=== PATIENT | male | born 1980 | race Caucasian/White ===

== ENCOUNTER 2022-11-08 14:43 | Inpatient (IN) ==
--- NOTE | 2022-11-08 15:37 | XRay Report ---
XR chest 1V not portable CLINICAL HISTORY: Dysrhythmia TECHNIQUE: Single frontal radiograph of the chest was obtained. Comparison: Comparison is made to chest radiograph 08/29/2019 FINDINGS: No lines and tubes are seen. The cardiomediastinal silhouette is normal. The lungs are clear. No evid ence of pleural effusion or pneumothorax. IMPRESSION: No acute chest disease. ACT 112: Negative or not required by law. Electronically signed by: Binu Helton M.D. 11/08/2022 3:36 PM
[2022-11-08 16:22] LABS: Basophils # (auto) 0.02 K/uL (0.00-0.20); Basophils % (auto) 0.2 %; Eosinophils # (auto) 0.04 K/uL (0.00-0.50); Eosinophils % (auto) 0.4 %; Hematocrit (blood only) 45.7 % (42.0-52.0); Hemoglobin 16.7 g/dl (14.0-18.0); Immature Granulocytes # (auto) 0.02 K/uL (0.01-0.20); Immature Granulocytes % (auto) 0.2 %; Lymphocytes # (auto) 3.17 K/uL (1.20-3.40); Lymphocytes % (auto) 35.2 %; Mean Corpuscular Hemoglobin 29.6 pg (25.0-34.0); Mean Corpuscular Hgb Conc 36.5 g/dL (32.0-36.0); Mean Corpuscular Volume 80.9 fL (80.0-100.0); Mean Platelet Volume 10.2 fL (9.4-12.4); Monocytes # (auto) 0.62 K/uL (0.11-0.59); Monocytes % (auto) 6.9 %; Neutrophils # (auto) 5.13 K/uL (1.40-6.50); Neutrophils % (auto) 57.1 %; Platelet Count 258 K/uL (130-400); RDW Coefficient of Variation 12.3 % (11.5-14.5); RDW Standard Deviation 35.6 fL (36.4-46.3); Red Blood Count 5.65 M/uL (4.70-6.10)
[2022-11-08] MEDS ORDERED: SODIUM CHLORIDE 0.9% 1,000 ML IV ONE (16:43)
[2022-11-08 16:44] LABS: Alanine Aminotransferase 30 U/L (7-52); Albumin Globulin Ratio 1.2 (0.9-2); Albumin Level 4.1 gm/dl (3.4-5.0); Alkaline Phosphatase 77 U/L (34-104); Anion Gap 9 (3-11); Aspartate Aminotransferase 30 U/L (13-39); BUN Creatinine Ratio 21.8 (10-20); Bilirubin,Total 0.8 mg/dl (0.2-1.0); Blood Urea Nitrogen 17 mg/dl (6-23); Calcium 9.3 mg/dl (8.6-10.3); Carbon Dioxide 24 mmol/L (21-32); Chloride 101 mmol/L (98-107); Est GFR (Non-African American) 111.3 ml/min; Globulin 3.4 gm/dl (2.5-4.0); Glucose 299 mg/dl (70-99(Fasting)); Magnesium 1.7 mg/dl (1.7-2.4); Potassium 4.1 mmol/L (3.5-5.1); Sodium 134 mmol/L (136-145); Total Protein 7.5 gm/dl (6.0-8.3)
--- NOTE | 2022-11-08 16:45 | Emergency Department Note ---
Impression & Plan Elevated troponin ADMIT ED Provider Note HPI: The patient is a 42-year-old male with history of obesity, diabetes, presents emergency department with chief complaint of chest discomfort last night and an episode of self-induced vomiting. Patient states he developed an episode of severe epigastric discomfort that was slightly off to the left side. Patient states this lasted about an hour and a half late last night, he was unable to fall asleep. Patient states that he did eat a large meal of fast food last night. On arrival here to the ED, the patient states he has been having some palpitations throughout the day but his chest pain is resolved. Patient denies any current chest pain. Patient is hemodynamically stable otherwise on arrival. ROS: - Per HPI Differential Diagnosis: Acute coronary syndrome, pulmonary embolism, aortic dissection, tension pneumothorax, acute cholecystitis, acute gastritis, amongst other potential pathologies. *Outpatient medications and allergy history reviewed. *Pertinent external medical records reviewed. PE: General: Alert, morbidly obese HEENT: Normocephalic, trachea midline Eyes: Extraocular eye movement is intact, no scleral erythema Pulmonary: Clear to auscultation bilaterally, no wheezing Cardio: Regular rate and rhythm GI: Abdomen is soft to palpation : No suprapubic tenderness MSK: No evidence of trauma or malformation of the extremities, no edema Skin: No evidence of rash Neuro: Alert, no focal deficits Psychiatric: Cooperative media monitor: (As interpreted by myself): - An order was placed for continuous cardiac monitoring - Patient was noted to be in sinus rhythm with a rate of 95 EKG: (As interpreted by myself): Rate: 98 Rhythm: Sinus rhythm Intervals: Within normal limits ST changes: No ST elevation Time: 1555 Interventions provided in ED: -IV fluid bolus, aspirin, heparin drip Medical Decision Making: Shortly after the patient arrived IV was established and lab work ordered, patient was maintained on traffic monitor specialist. Lab work shows no leukocytosis, hemoglobin is normal, platelet count is normal, CMP does not show any critical findings, troponin is noted to be elevated at 2055, EKG shows what appear to be some new Q waves in lead V1 and V2 without any acute ischemic changes noted. Chest x-ray does not show any acute pathology. Patient is currently chest pain- free. In regards to the palpitations the patient has been experiencing, EKG does note some premature atrial contractions, otherwise no evidence of atrial fibrillation or malignant arrhythmia. I discussed the above findings with on-call cardiology, Dr. Brewer, he is in ag reement at this time that the patient likely suffered an UT last night. Recommended initiating heparin drip, aspirin, and admission to the hospitalist service for further management and cardiology consultation. I discussed all the above findings with the patient and his significant other at the bedside, they are in agreement for admission, patient remains pain-free at this time. Case was discussed with the on-call hospitalist for [facility] [place], Dr. Gay, and the patient was placed for admission in stable condition. Consultants: -Cardiology, Dr. Brewer -Hospitalist, Dr. Gay Disposition discussion held by myself with: Patient and significant other Critical care time: 37 minutes -Management of patient with NSTEMI requiring initiation of heparin drip, interpretation of EKG and diagnostic studies, discussion with multiple other physicians including on-call cardiology in regards to patient care, discussion with hospitalist service and arrangement of admission. Diagnosis: 1. NSTEMI, acute 2. Sensation of palpitations, acute Disposition: ADMIT Dominick Carpenter DO Emergency Medicine Past Med/Surg History Medical History (Updated 11/08/22 @ 18:29 by Dominick Carpenter DO) No acute medical problems Surgical History No pertinent past surgical history Social History Smoking Status: Never smoker Feels Safe at Home: Yes Allergies Allergies Allergy/AdvReac Type Severity Reaction Status Date / Time bacitracin Allergy Mild Rash Unverified 11/08/22 17:59 calamine Allergy Mild Rash Unverified 11/08/22 17:59 zinc oxide Allergy Mild Rash Unverified 11/08/22 17:59 onion AdvReac Intermediate Gastrointestinal Unverified 11/08/22 17:59 Upset Home Meds Home Medications Medication Instructions Recorded Confirmed acetaminophen 325 mg tablet 650 mg PO QID PRN Pain 11/26/20 11/08/22 (Tylenol) aspirin 325 mg tablet 650 mg PO DIRECTED PRN Pain 11/26/20 11/08/22 ibuprofen 200 mg tablet 400 mg PO Q6H PRN Pain 11/26/20 11/08/22 naproxen sodium 220 mg tablet 440 mg PO BID PRN Pain 11/26/20 11/08/22 Results & Data (ED) Vital Signs Vital Signs - 24 hr 11/08/22 14:59 11/08/22 16:24 11/08/22 16:25 Temperature 36.7 C Temperature Source Skin Pulse Rate 95 H 90 100 H Pulse Rate from SpO2 Sensor 87 Respiratory Rate 20 24 Blood Pressure 132/77 134/100 Blood Pressure Mean 95 111 Pulse Oximetry 96 97 Oxygen Delivery Method Room Air Sepsis Recent Fever Within 48 Hours No Sepsis New/Unexplained Change in Mental Status No Sepsis Action Taken by Nursing No Action Required Laboratory Data 11/08/22 16:00 11/08/22 16:00 Lab Results 11/08/22 11/08/22 11/08/22 Range/Units 16:00 16:00 16:00 WBC 9.00 (4.8-10.8) K/ul RBC 5.65 (4.70-6.10) M/uL Hgb 16.7 (14.0-18.0) g/dl Hct 45.7 (42.0-52.0) % MCV 80.9 (80.0-100.0) fL MCH 29.6 (25.0-34.0) pg MCHC 36.5 H (32.0-36.0) g/dL RDW Std Deviation 35.6 L (36.4-46.3) fL RDW Coeff of Sujey 12.3 (11.5-14.5) % Plt Count 258 (130-400) K/uL MPV 10.2 (9.4-12.4) fL Immature Gran % (Auto) 0.2 % Neut % (Auto) 57.1 % Lymph % (Auto) 35.2 % Plumas % (Auto) 6.9 % Eos % (Auto) 0.4 % Baso % (Auto) 0.2 % Neut # (Auto) 5.13 (1.40-6.50) K/uL Lymph # (Auto) 3.17 (1.20-3.40) K/uL Plumas # (Auto) 0.62 H (0.11-0.59) K/uL Eos # (Auto) 0.04 (0.00-0.50) K/uL Baso # (Auto) 0.02 (0.00-0.20) K/uL Immature Gran # (Auto) 0.02 (0.01-0.20) K/uL Sodium 134 L (136-145) mmol/L Potassium 4.1 (3.5-5.1) mmol/L Chloride 101 (98-107) mmol/L Carbon Dioxide 24 (21-32) mmol/L Anion Gap 9 (3-11) BUN 17 (6-23) mg/dl Creatinine 0.78 (0.6-1.4) mg/dl Est Cr Clr Drug Dosing Not Reportable Est GFR ( Amer) 129.0 ml/min Est GFR (Non-Af Amer) 111.3 ml/min BUN/Creatinine Ratio 21.8 H (10-20) Glucose 299 H (70-99(Fasting)) mg/dl Calcium 9.3 (8.6-10.3) mg/dl Magnesium 1.7 (1.7-2.4) mg/dl Total Bilirubin 0.8 (0.2-1.0) mg/dl AST 30 (13-39) U/L ALT 30 (7-52) U/L Alkaline Phosphatase 77 (34-104) U/L Troponin I High Sens 2056.8 H* (0-20) pg/ml Total Protein 7.5 (6.0-8.3) gm/dl Albumin 4.1 (3.4-5.0) gm/dl Globulin 3.4 (2.5-4.0) gm/dl Albumin/Globulin Ratio 1.2 (0.9-2) TSH 1.398 (0.300-4.500) uIu/ml Administered Medications Heparin Sodium/Dextrose (Heparin Sodium/Dextrose) 25,000 units in 500 mls @ 44 mls/hr IV .[id number] [facility]; Protocol Stop: 12/08/22 17:29 Last Admin: 11/08/22 17:56 Dose: 2,200 units/hr, 44 mls/hr Documented By: STELLA Co-signed By: [facility] Discontinued Medications Aspirin (Aspirin Chew 324 Mg) 324 mg PO NOW STA Stop: 11/08/22 16:56 Last Admin: 11/08/22 17:00 Dose: 324 mg Documented By: STELLA Heparin Sodium (Porcine) (Heparin Sod (Porcine) 1000 Unit/Ml) 10,000 units IV NOW ONE Stop: 11/08/22 17:46 Last Admin: 11/08/22 17:56 Dose: 10,000 units Documented By: STELLA Co-signed By: AICHA Sodium Chloride (Nss 1000ml) 1,000 mls @ 999 mls/hr IV .Q1H1M ONE Stop: 11/08/22 17:43 Last Admin: 11/08/22 17:01 Dose: 999 mls/hr Documented By: STELLA Imaging Data Radiologist's Impression: Chest X-Ray 11/08/22 15:07 XR chest 1V not portable CLINICAL HISTORY: Dysrhythmia TECHNIQUE: Single frontal radiograph of the chest was obtained. Comparison: Comparison is made to chest radiograph 08/29/2019 FINDINGS: No lines and tubes are seen. The cardiomediastinal silhouette is normal. The lungs are clear. No evidence of pleural effusion or pneumothorax. IMPRESSION: No acute chest disease. ACT 112: Negative or not required by law. Electronically signed by: Binu Helton M.D. 11/08/2022 3:36 PM Discharge Plan Visit Data Chief Complaint: Arrhythmia/Palpitations Stated Complaint: HIGH BLOOD PRESSURE, HEART SKIPPING, CHEST PAIN ED Provider: Dominick Crapenter Discharge Problem: Elevated troponin Forms Stand Alone Forms: [employer] [facility] [employer] Prescriptions Prescriptions: No Action acetaminophen [Tylenol] 325 mg Tablet 650 mg PO QID PRN (Reason: Pain) aspirin 325 mg Tablet 650 mg PO DIRECTED PRN (Reason: Pain) naproxen sodium 220 mg Tablet 440 mg PO BID PRN (Reason: Pain) ibuprofen 200 mg Tablet 400 mg PO Q6H PRN (Reason: Pain) Referrals Referrals: PCP,NO [Primary Care Provider] -
[2022-11-08 16:52] LABS: Troponin I High Sensitivity 2056.8 pg/ml (0-20)
[2022-11-08] MEDS ORDERED: ASPIRIN CHEW 324 MG PO STA (16:55)
--- NOTE | 2022-11-08 16:57 | Electrocardiogram Report ---
Test Reason : Blood Pressure : / mmHG Vent. Rate : 098 BPM Atrial Rate : 098 BPM P-R Int : 162 ms QRS Dur : 090 ms QT Int : 340 ms P-R-T Axes : 007 -20 044 degrees QTc Int : 434 ms Sinus rhythm with Premature atrial complexes Septal infarct , age undetermined Abnormal ECG When compared with ECG of 29-AUG-2019 00:46, Premature atrial complexes are now Present Septal infarct is now Present Nonspecific T wave abnormality now evident in Lateral leads Confirmed by Ruben Lazaro ([id number]) on 11/08/2022 4:57:31 PM Referred By: Confirmed By:Ruben Lazaro
[2022-11-08] MEDS ORDERED: Heparin IV Adult Wt-Based Standard WITH Bolus Protocol IV STA (17:14)
[2022-11-08] MEDS ORDERED: HEPARIN SOD (PORCINE) 1000 UNIT/ML IV ONE ×2 (17:30→17:45)
[2022-11-08] MEDS ORDERED: Heparin IV Adult Wt-Based Standard WITH Bolus Protocol IV SCH (17:30)
[2022-11-08] MEDS ORDERED: MoRPHine SULFATE 2 MG/ML CARP IV PRN (17:46)
[2022-11-08] MEDS ORDERED: ONDANSETRON INJ 2 MG/ML 2 ML VIAL IV PRN (17:46)
[2022-11-08] MEDS ORDERED: NITROGLYCERIN SL 0.4 MG/TAB TAB SL PRN (17:46)
[2022-11-08] MEDS: HEPARIN SODIUM/DEXTROSE 25,000 UNITS/500 ML BAG IV SCH (17:56)
--- NOTE | 2022-11-08 18:53 | History & Physical Report ---
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 Chest pain/Elevated Troponins States that he was at work, nonexertional activity, when he started having severe chest pain that lasted for about an hour. Since then has been having a persistent "heavy heartbeat" and dull ache in the area. EKG with sinus rhythm and PACs, hs-troponins elevated >2000. Echo pending, Trend trops q2h CTA chest Continue heparin drip started in the ED, started on metoprolol tartrate 25mg PO BID Scheduled nitropaste q6h Discussed with both cardiology and interventional cardiology- advised to keep NPO currently, will need cath in near future. Sooner if he destabilizes. 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 States that he was at work, nonexertional activity, when he started having severe chest pain that lasted for about an hour. Also self induced vomitting to see if that would help. Since then has been having a persistent "heavy heartbeat" and dull ache in the area. Girlfriend at the bedside. They state that he recently started a new job and did not have insurance. So he has not been on any diabetic medicines since being diagnosed in 2017. States that he has tried metformin at one point but had GI side effects and stopped. States he was trying to manage it with diet and exercise. Nonsmoker. Fam Hx of strokes and GA in grandfather, mother has Hx of "arrhythmias". Allergies Allergy/AdvReac Type Severity Reaction Status Date / Time bacitracin Allergy Mild Rash Unverified 11/08/22 17:59 calamine Allergy Mild Rash Unverified 11/08/22 17:59 zinc oxide Allergy Mild Rash Unverified 11/08/22 17:59 onion AdvReac Intermediate Gastrointestinal Unverified 11/08/22 17:59 Upset Home Medications Medication Instructions Recorded Confirmed Type acetaminophen 325 mg tablet 650 mg PO QID PRN Pain 11/26/20 11/08/22 History (Tylenol) aspirin 325 mg tablet 650 mg PO DIRECTED PRN Pain 11/26/20 11/08/22 History ibuprofen 200 mg tablet 400 mg PO Q6H PRN Pain 11/26/20 11/08/22 History naproxen sodium 220 mg tablet 440 mg PO BID PRN Pain 11/26/20 11/08/22 History Past Med/Surg History Medical History (Updated 11/10/22 @ 00:00 by Orin Gay MD) No acute medical problems Surgical History No pertinent past surgical history Social History Smoking Status: Never smoker Hx Alcohol Use: No Hx Substance Use: No Preferred Language: Slovenian Communication Ability: Effective Gaggerman Required: No Beliefs That Will Affect Care: None Current Living Situation: Spouse Other Information That Helps Us Care for You: No Feels Safe at Home: Yes Safety Concerns: Feels Safe At This Time Assistive Devices: Cane Review of Systems Review of Systems: All systems reviewed & are unremarkable except as noted in Subjective Physical Exam Physical Exam: General: Alert, oriented. No acute distress Skin: No noted rashes or bruises Neuro: No gross deficits HEENT: NC/AT CV: RRR, Normal s1, s2. Resp: Breath sounds clear bilaterally, no increased effort of breathing. Abdomen: Soft, nontender, nondistended. No guarding. No organomegaly appreciated. Results & Data Results & Data Vital Signs (Past 12 Hours) Vital Signs Temp Pulse Resp BP Pulse Ox O2 Del Method 11/08/22 16:25 100 H 11/08/22 16:24 90 24 134/100 97 Room Air 11/08/22 14:59 36.7 C 95 H 20 132/77 96
--- NOTE | 2022-11-08 19:31 | CT Scan Report ---
CT chest diagnostic wo con CLINICAL HISTORY: Chest Pain, Eval for PE TECHNIQUE: Multidetector row helical CT of the chest was performed. Coronal and sagittal reformations were obtained. Automated dose lowering techniques and/or adjustment according to patient size were u tilized for this exam. CT DOSE: 998.15 mGy.cm Comparison: Comparison is made to chest radiograph 11/08/2022 FINDINGS: Lungs and pleura: Normal. Heart and pericardium: Heart size is normal. No pericardial effusion. Vessels: Evaluation for pulmonary embolus is limited by noncontrast technique. Mild atherosclerotic d isease is seen. Mediastinum and nataliia: Subcentimeter lymph nodes are seen. Chest wall and lower neck: Unremarkable. Abdomen: Unremarkable. Bones: Degenerative changes in the thoracic spine. IMPRESSION: Evaluation for pulmonary embolus is limited by noncontrast technique. Otherwise no acute abnormalitie s are seen. ACT 112: Negative or not required by law. Electronically signed by: Binu Helton M.D. 11/08/2022 7:30 PM
[2022-11-08] MEDS: METOPROLOL TARTRATE 25 MG TAB PO SCH (20:39)
[2022-11-08] MEDS: NITROGLYCERIN 2% OINTMENT 30GM TUBE EXT SCH (21:00)
[2022-11-08 22:52] LABS: Estimated Average Glucose 301 mg/dl; Hemoglobin A1C 12.1 % (4.5-5.6)
[2022-11-08 23:44] LABS: Partial Thromboplastin Ratio 1.8
[2022-11-08 23:47] LABS: Partial Thromboplastin Time 52.1 Seconds (21.0-31.0)
[2022-11-09] MEDS: NITROGLYCERIN 2% OINTMENT 30GM TUBE EXT SCH ×5 (01:30→23:48)
[2022-11-09] MEDS: oxyCODONE HCL IR 5 MG TAB (IMMEDIATE RELEASE) PO PRN ×3 (02:15→20:34)
[2022-11-09] MEDS ORDERED: GLUCAGON FOR INJ 1 MG VIAL SQ PRN (04:02)
[2022-11-09] MEDS ORDERED: DEXTROSE 50% 50 ML SYRINGE IV PRN (04:02)
[2022-11-09] MEDS ORDERED: CARBOHYDRATES FOR HYPOGLYCEMIA PO PRN (04:02)
[2022-11-09] MEDS ORDERED: GLUCOSE 40% GEL 15 GM TUBE PO PRN (04:02)
[2022-11-09] MEDS ORDERED: GLUCOSE 10 TAB/TUBE PO PRN (04:02)
[2022-11-09] MEDS ORDERED: SODIUM CHLORIDE 0.9% 1,000 ML IV ONE (04:09)
[2022-11-09] MEDS: INSULIN ASPART PER UNIT CHARGE SC SCH ×4 (04:29→21:34)
[2022-11-09 04:37] LABS: Basophils # (auto) 0.03 K/uL (0.00-0.20); Basophils % (auto) 0.3 %; Eosinophils # (auto) 0.04 K/uL (0.00-0.50); Eosinophils % (auto) 0.4 %; Hemoglobin 15.2 g/dl (14.0-18.0); Immature Granulocytes # (auto) 0.04 K/uL (0.01-0.20); Immature Granulocytes % (auto) 0.4 %; Lymphocytes # (auto) 4.79 K/uL (1.20-3.40); Lymphocytes % (auto) 45.9 %; Mean Corpuscular Hemoglobin 29.4 pg (25.0-34.0); Mean Corpuscular Hgb Conc 36.2 g/dL (32.0-36.0); Mean Corpuscular Volume 81.2 fL (80.0-100.0); Mean Platelet Volume 10.2 fL (9.4-12.4); Monocytes # (auto) 0.73 K/uL (0.11-0.59); Neutrophils # (auto) 4.81 K/uL (1.40-6.50); Platelet Count 230 K/uL (130-400); RDW Coefficient of Variation 12.3 % (11.5-14.5); RDW Standard Deviation 35.9 fL (36.4-46.3); Red Blood Count 5.17 M/uL (4.70-6.10); White Blood Count 10.44 K/ul (4.8-10.8)
[2022-11-09] MEDS: LANTUS PER UNIT CHARGE SQ SCH ×2 (04:38→21:37)
[2022-11-09 04:49] LABS: BUN Creatinine Ratio 20.6 (10-20); Calcium 8.5 mg/dl (8.6-10.3); Chol HDL Ratio 6.7 (0-5); Creatinine Clr Calc Pharmacy 266.8 ml/min; Est GFR (African American) 140.9 ml/min; Est GFR (Non-African American) 121.5 ml/min; Potassium 3.7 mmol/L (3.5-5.1)
[2022-11-09] MEDS: MoRPHine SULFATE 4 MG/ML 1 ML CARP\\VIAL IV PRN ×4 (04:52→21:48)
[2022-11-09 05:20] LABS: Partial Thromboplastin Ratio 1.5
[2022-11-09 05:24] LABS: Partial Thromboplastin Time 43.6 Seconds (21.0-31.0)
[2022-11-09] MEDS: HEPARIN SODIUM/DEXTROSE 25,000 UNITS/500 ML BAG IV SCH ×2 (05:42→17:09)
--- NOTE | 2022-11-09 07:15 | Electrocardiogram Report ---
Test Reason : Blood Pressure : / mmHG Vent. Rate : 087 BPM Atrial Rate : 087 BPM P-R Int : 166 ms QRS Dur : 092 ms QT Int : 386 ms P-R-T Axes : 017 -13 026 degrees QTc Int : 464 ms Sinus rhythm with Premature atrial complexes Otherwise normal ECG When compared with ECG of 08-NOV-2022 15:55, No significant change was found Confirmed by Jose Guadalupe Morrow ([id number]) on 11/09/2022 7:14:55 AM Referred By: REFERRED SELF Confirmed By:Zak Morrow
--- NOTE | 2022-11-09 07:16 | Electrocardiogram Report ---
Test Reason : Blood Pressure : / mmHG Vent. Rate : 087 BPM Atrial Rate : 087 BPM P-R Int : 164 ms QRS Dur : 094 ms QT Int : 378 ms P-R-T Axes : 038 -07 063 degrees QTc Int : 454 ms Normal sinus rhythm Nonspecific T wave abnormality Abnormal ECG When compared with ECG of 08-NOV-2022 20:51, (unconfirmed) Premature atrial complexes are no longer Present Nonspecific T wave abnormality now evident in Lateral leads Confirmed by Jose Guadalupe Morrow ([id number]) on 11/09/2022 7:16:05 AM Referred By: REFERRED SELF Confirmed By:Zak Morrow
[2022-11-09] MEDS: ATORVASTATIN 40 MG TAB PO SCH (08:49)
[2022-11-09] MEDS: ASPIRIN 81 MG ECTAB PO SCH (08:49)
[2022-11-09] MEDS: METOPROLOL TARTRATE 25 MG TAB PO SCH ×2 (08:49→21:31)
[2022-11-09 12:23] LABS: D Dimer < 190 ug/L FEU (0-500)
--- NOTE | 2022-11-09 13:16 | Cardiology Consultation ---
Date of Consultation November 09, 2022 Assessment & Plan (1) Elevated troponin: (2) Substernal precordial chest pain: (3) Morbid obesity: (4) Hyperlipidemia: Plan Patient is a 42-year-old male with multiple cardiovascular risk factors who is developed severe substernal/epigastric pain approximately 12 hours prior to ER presentation. Symptoms lasted upwards of 90 minutes with only low-level chest pressure symptoms afterwards consistent with sensed atrial and ventricular ectopy. No acute dynamic ST segment changes on EKG but troponin elevated Echocardiogram demonstrates mild diffuse LV dysfunction without segmental abnormality Discussed findings in detail with patient. Would recommend diagnostic coronary angiography for further risk factor stratification We will continue IV heparin Continue oral beta-arpita with metoprolol We will reduce topical nitrates to 1 inch every 6 given headache Continue aspirin and statin Tentative plans for procedure Friday a.m. unless patient becomes unstable, dynamic ST segment changes develop History of Present Illness Reason for Consultation: Chest pain, elevated troponin Requesting Physician: Dr. Gay Attending Physician: Orin Gay MD History of Present Illness Patient is a 42-year-old male without prior documented cardiac disease with multiple cardiovascular risk factors including uncontrolled diabetes mellitus, marked hyperlipidemia, familial history of cardiac disease. Medical issues include morbid obesity Patient notes evening prior to admission having eating a spicy chicken sandwich, large meal. Proximately 2 AM the next morning while awake patient developed severe epigastric pain and discomfort. Lasting up to 90 minutes in duration. He did take a full aspirin and treatment, induced vomiting with improvement in some symptoms. Uncomfortable throughout the night but slept In a.m. was aware of intermittent episodes of heart pounding hard and ultimately sought ER evaluation approximately 12 hours after event. Initial EKG without ST segment abnormalities to suggest acute injury Troponins elevated He denies prior history of cardiac disease rheumatic fever scarlet fever TIA or stroke. Has not been taking any diabetic medications due to concerns regarding medications. Notes weight has been stable but still elevated at greater than 400 pounds. No bleeding difficulties. No recent fevers chills or infections. Has made car travel trips though no worsening leg edema or tenderness Denies sleep disturbances or sleep apnea No sense of prior tachypalpitations though as described above occasional fluttering sensation Chronic depression has been an issue with patient but he feels overall trending towards better given recent lifestyle interventions No further chest pressure pain this morning episodes of heart pounding heart have improved with heart rate control Headache secondary to nitrates Does note mild pleuritic discomfort left shoulder Allergies Allergy/AdvReac Type Severity Reaction Status Date / Time bacitracin Allergy Mild Rash Unverified 11/08/22 17:59 calamine Allergy Mild Rash Unverified 11/08/22 17:59 zinc oxide Allergy Mild Rash Unverified 11/08/22 17:59 Home Medications Medication Instructions Recorded Confirmed Type acetaminophen 325 mg tablet 650 mg PO QID PRN Pain 11/26/20 11/08/22 History (Tylenol) aspirin 325 mg tablet 650 mg PO DIRECTED PRN Pain 11/26/20 11/08/22 History ibuprofen 200 mg tablet 400 mg PO Q6H PRN Pain 11/26/20 11/08/22 History naproxen sodium 220 mg tablet 440 mg PO BID PRN Pain 11/26/20 11/08/22 History Patient History Medical History (Updated 11/10/22 @ 00:00 by Orin Gay MD) No acute medical problems Surgical History No pertinent past surgical history Social History Smoking Status: Never smoker Hx Alcohol Use: No Hx Substance Use: No Preferred Language: Canadian Communication Ability: Effective [employer] Consultant Required: No Beliefs That Will Affect Care: None Current Living Situation: Spouse Other Information That Helps Us Care for You: No Feels Safe at Home: Yes Safety Concerns: Feels Safe At This Time Assistive Devices: Cane Review of Systems Review of Systems: All systems reviewed & are unremarkable except as noted in HPI & below Physical Exam Constitutional: + morbidly obese; no acute distress Eyes: PERRL, conjunctivae normal, anicteric sclerae ENMT: external ear and nose normal, oropharynx normal Neck: + thick neck Respiratory: normal respiratory effort, lungs clear to auscultation Cardiovascular: RRR, no murmur, no edema Gastrointestinal (Abdomen): normal bowel sounds, soft, nontender, no hepatosplenomegaly Musculoskeletal: no cyanosis or clubbing, extremities motor strength 5/5 Skin: no rashes, warm and dry Results & Data Vital Signs (Past 12 Hours) Vital Signs Temp Pulse Pulse Resp BP Pulse Ox O2 Del Method 11/09/22 12:25 36.4 C L 79 18 121/78 94 Room Air 11/09/22 07:56 36.4 C L 90 20 111/73 94 Room Air 11/09/22 03:38 36.6 C 82 18 128/85 94 Room Air Laboratory Results Laboratory Results - last 24 hr 11/08/22 11/08/22 11/08/22 16:00 16:00 16:00 WBC 9.00 RBC 5.65 Hgb 16.7 Hct 45.7 MCV 80.9 MCH 29.6 MCHC 36.5 H RDW Std Deviation 35.6 L RDW Coeff of Sujey 12.3 Plt Count 258 MPV 10.2 Immature Gran % (Auto) 0.2 Neut % (Auto) 57.1 Lymph % (Auto) 35.2 Porter % (Auto) 6.9 Eos % (Auto) 0.4 Baso % (Auto) 0.2 Neut # (Auto) 5.13 Lymph # (Auto) 3.17 Porter # (Auto) 0.62 H Eos # (Auto) 0.04 Baso # (Auto) 0.02 Immature Gran # (Auto) 0.02 ESR APTT PTT Ratio D-Dimer Sodium 134 L Potassium 4.1 Chloride 101 Carbon Dioxide 24 Anion Gap 9 BUN 17 Creatinine 0.78 Est Cr Clr Drug Dosing Not Reportable Est GFR ( Amer) 129.0 Est GFR (Non-Af Amer) 111.3 BUN/Creatinine Ratio 21.8 H Glucose 299 H POC Glucose Estimat Average Glucose Hemoglobin A1c Calcium 9.3 Magnesium 1.7 Total Bilirubin 0.8 AST 30 ALT 30 Alkaline Phosphatase 77 Troponin I High Sens 2056.8 H* C-Reactive Protein Total Protein 7.5 Albumin 4.1 Globulin 3.4 Albumin/Globulin Ratio 1.2 Triglycerides Cholesterol LDL Cholesterol, Calc VLDL Cholesterol, Calc HDL Cholesterol Cholesterol/HDL Ratio TSH 1.398 11/08/22 11/08/22 11/08/22 16:00 18:58 21:16 WBC RBC Hgb Hct MCV MCH MCHC RDW Std Deviation RDW Coeff of Sujey Plt Count MPV Immature Gran % (Auto) Neut % (Auto) Lymph % (Auto) Porter % (Auto) Eos % (Auto) Baso % (Auto) Neut # (Auto) Lymph # (Auto) Porter # (Auto) Eos # (Auto) Baso # (Auto) Immature Gran # (Auto) ESR APTT PTT Ratio D-Dimer Sodium Potassium Chloride Carbon Dioxide Anion Gap BUN Creatinine Est Cr Clr Drug Dosing Est GFR ( Amer) Est GFR (Non-Af Amer) BUN/Creatinine Ratio Glucose POC Glucose Estimat Average Glucose 301 Hemoglobin A1c 12.1 H Calcium Magnesium Total Bilirubin AST ALT Alkaline Phosphatase Troponin I High Sens 2931.0 H* D 2659.6 H* C-Reactive Protein Total Protein Albumin Globulin Albumin/Globulin Ratio Triglycerides Cholesterol LDL Cholesterol, Calc VLDL Cholesterol, Calc HDL Cholesterol Cholesterol/HDL Ratio TSH 11/08/22 11/08/22 11/09/22 22:42 22:42 00:20 WBC RBC Hgb Hct MCV MCH MCHC RDW Std Deviation RDW Coeff of Sujey Plt Count MPV Immature Gran % (Auto) Neut % (Auto) Lymph % (Auto) Porter % (Auto) Eos % (Auto) Baso % (Auto) Neut # (Auto) Lymph # (Auto) Porter # (Auto) Eos # (Auto) Baso # (Auto) Immature Gran # (Auto) ESR APTT 52.1 H* PTT Ratio 1.8 D-Dimer Sodium Potassium Chloride Carbon Dioxide Anion Gap BUN Creatinine Est Cr Clr Drug Dosing Est GFR ( Amer) Est GFR (Non-Af Amer) BUN/Creatinine Ratio Glucose POC Glucose Estimat Average Glucose Hemoglobin A1c Calcium Magnesium Total Bilirubin AST ALT Alkaline Phosphatase Troponin I High Sens 2754.2 H* 2478.2 H* C-Reactive Protein Total Protein Albumin Globulin Albumin/Globulin Ratio Triglycerides Cholesterol LDL Cholesterol, Calc VLDL Cholesterol, Calc HDL Cholesterol Cholesterol/HDL Ratio TSH 11/09/22 11/09/22 11/09/22 04:11 04:11 04:11 WBC 10.44 RBC 5.17 Hgb 15.2 Hct 42.0 MCV 81.2 MCH 29.4 MCHC 36.2 H RDW Std Deviation 35.9 L RDW Coeff of Sujey 12.3 Plt Count 230 MPV 10.2 Immature Gran % (Auto) 0.4 Neut % (Auto) 46.0 Lymph % (Auto) 45.9 Porter % (Auto) 7.0 Eos % (Auto) 0.4 Baso % (Auto) 0.3 Neut # (Auto) 4.81 Lymph # (Auto) 4.79 H Porter # (Auto) 0.73 H Eos # (Auto) 0.04 Baso # (Auto) 0.03 Immature Gran # (Auto) 0.04 ESR APTT 43.6 H* PTT Ratio 1.5 D-Dimer Sodium 134 L Potassium 3.7 Chloride 102 Carbon Dioxide 23 Anion Gap 9 BUN 13 Creatinine 0.63 Est Cr Clr Drug Dosing 266.8 Est GFR ( Amer) 140.9 Est GFR (Non-Af Amer) 121.5 BUN/Creatinine Ratio 20.6 H Glucose 238 H POC Glucose Estimat Average Glucose Hemoglobin A1c Calcium 8.5 L Magnesium Total Bilirubin AST ALT Alkaline Phosphatase Troponin I High Sens C-Reactive Protein Total Protein Albumin Globulin Albumin/Globulin Ratio Triglycerides 376 H Cholesterol 276 H LDL Cholesterol, Calc 160 VLDL Cholesterol, Calc 75 H HDL Cholesterol 41 Cholesterol/HDL Ratio 6.7 H TSH 11/09/22 11/09/22 11/09/22 04:11 04:28 11:38 WBC RBC Hgb Hct MCV MCH MCHC RDW Std Deviation RDW Coeff of Sujey Plt Count MPV Immature Gran % (Auto) Neut % (Auto) Lymph % (Auto) Porter % (Auto) Eos % (Auto) Baso % (Auto) Neut # (Auto) Lymph # (Auto) Porter # (Auto) Eos # (Auto) Baso # (Auto) Immature Gran # (Auto) ESR 18 H APTT PTT Ratio D-Dimer Sodium Potassium Chloride Carbon Dioxide Anion Gap BUN Creatinine Est Cr Clr Drug Dosing Est GFR ( Amer) Est GFR (Non-Af Amer) BUN/Creatinine Ratio Glucose POC Glucose 235 H Estimat Average Glucose Hemoglobin A1c Calcium Magnesium Total Bilirubin AST ALT Alkaline Phosphatase Troponin I High Sens 2269.9 H* C-Reactive Protein Total Protein Albumin Globulin Albumin/Globulin Ratio Triglycerides Cholesterol LDL Cholesterol, Calc VLDL Cholesterol, Calc HDL Cholesterol Cholesterol/HDL Ratio TSH 11/09/22 11/09/22 11/09/22 11:38 11:38 12:06 WBC RBC Hgb Hct MCV MCH MCHC RDW Std Deviation RDW Coeff of Sujey Plt Count MPV Immature Gran % (Auto) Neut % (Auto) Lymph % (Auto) Porter % (Auto) Eos % (Auto) Baso % (Auto) Neut # (Auto) Lymph # (Auto) Porter # (Auto) Eos # (Auto) Baso # (Auto) Immature Gran # (Auto) ESR APTT PTT Ratio D-Dimer < 190 Sodium Potassium Chloride Carbon Dioxide Anion Gap BUN Creatinine Est Cr Clr Drug Dosing Est GFR ( Amer) Est GFR (Non-Af Amer) BUN/Creatinine Ratio Glucose POC Glucose 289 H Estimat Average Glucose Hemoglobin A1c Calcium Magnesium Total Bilirubin AST ALT Alkaline Phosphatase Troponin I High Sens C-Reactive Protein 1.69 H Total Protein Albumin Globulin Albumin/Globulin Ratio Triglycerides Cholesterol LDL Cholesterol, Calc VLDL Cholesterol, Calc HDL Cholesterol Cholesterol/HDL Ratio TSH ECG Additional Comments: EKG 11/09/2022 normal sinus rhythm Nonspecific T wave abnormality Abnormal ECG When compared with ECG of 08-NOV-2022 20:51, (unconfirmed) Premature atrial complexes are no longer Present Nonspecific T wave abnormality now evident in Lateral leads
[2022-11-09] MEDS ORDERED: Nursing to Pharmacy Communication SCH (14:15)
--- NOTE | 2022-11-09 16:06 | Cardiology Consultation ---
Date of Consultation November 09, 2022 Assessment & Plan (1) Elevated troponin: Patient's troponin elevation is fairly high but multiple samples have shown a flat pattern which is inconsistent with ACS. Furthermore, his echocardiogram demonstrates mild global hypokinesis without segmental wall motion abnormalities are also not consistent with an acute coronary syndrome. He currently has no anginal chest pain. He did have a CT of his chest without contrast. Did not appear to have significant acute pathology on that study. However, exclusion of pulmonary embolism or aortic pathology cannot be performed without contrast. I will obtain a D-dimer to exclude VTE as he certainly carries risk given he is sedentary and morbidly obese. Since he has only shoulder pain I will also recommend we evaluate for chronic inflammatory problems. His pain worsens with deep inspiration which is suggestive of pleuritic chest pain. It may respond to anti-inflammatories. I have ordered a CRP and ESR. No significant pericardial effusion noted on echo. Some leads on the EKG suggests slight KS depression which could signify mild pericarditis. At this time he is not appropriate for coronary angiography but given his reduced EF this should be considered in the future either as an inpatient or an outpatient. I will leave that decision up to the primary reefer engineer. I will be available should the patient develop an acute coronary syndrome. (2) Cardiomyopathy: Mild LV systolic dysfunction. Not sure what his RV looks like as I have not personally reviewed his echocardiogram. Evaluation for coronary disease should be undertaken at some point. Options would include cardiac catheterization although given his weight (estimated) he is approaching the limit of the [employer] Box Tender table. A cardiac CTA could also be considered as an outpatient. Additional work-up and recommendations per primary reefer engineer. (3) Hyperlipidemia: Patient is considered high risk (diabetes). High intensity statin therapy is recommended. His LDL was very elevated and should be reduced by 50% or more per current guidelines. Plan I will sign off the patient at this time. Please feel free to contact me if the patient worsens or needs emergent cardiac cath. History of Present Illness Reason for Consultation: Interventional cardiology consult regarding need for emergent catheterization Attending Physician: Orin Gay MD History of Present Illness This is a 42-year-old diabetic male who presents with onset of epigastric discomfort and heartburn after eating a fast food meal yesterday. He electively caused himself to vomit which alleviated some of his discomfort but he had persistent burning in the chest and epigastrium. He decided to come to the emergency department where his initial troponin was positive. However, he was no longer having any chest discomfort. He did admit to pounding heartbeat consistent with palpitations. He states he has had these long before his onset of epigastric discomfort. I was initially called regarding the need for emergent catheterization. The general cardiology consultation was placed to Dr. Escobar Ayala. I requested a stat echocardiogram, initiation of heparin as a bolus followed by drip, and nitroglycerin. The troponins were to be followed serially. This was last evening. I came to see the patient this morning as he evidently had no issues overnight. He tells me he is not having any chest discomfort or epigastric discomfort. He does have left shoulder pain which is worse with deep inspiration and is sharp in nature. No nausea, vomiting, diaphoresis, chest pressure, or shortness of breath. Patient tells me he does have history of reflux. Reviewing his record it appears that he has uncontrolled diabetes. He is concerned about cost of this admission and would like to return home as soon as possible because he is missing work shifts and he needs the income. He states that his job is not physically taxing. No other complaints or concerns at this time. He denies history of syncope, near syncope, orthopnea, PND, racing heartbeat, or edema. He does have the pounding heart beats which are not fast and he also states he has irregular heartbeat at sometimes. Allergies Allergy/AdvReac Type Severity Reaction Status Date / Time bacitracin Allergy Mild Rash Unverified 11/08/22 17:59 calamine Allergy Mild Rash Unverified 11/08/22 17:59 zinc oxide Allergy Mild Rash Unverified 11/08/22 17:59 onion AdvReac Intermediate Gastrointestinal Unverified 11/08/22 17:59 Upset Home Medications Medication Instructions Recorded Confirmed Type acetaminophen 325 mg tablet 650 mg PO QID PRN Pain 11/26/20 11/08/22 History (Tylenol) aspirin 325 mg tablet 650 mg PO DIRECTED PRN Pain 11/26/20 11/08/22 History ibuprofen 200 mg tablet 400 mg PO Q6H PRN Pain 11/26/20 11/08/22 History naproxen sodium 220 mg tablet 440 mg PO BID PRN Pain 11/26/20 11/08/22 History Patient History Medical History (Updated 11/09/22 @ 15:59 by Raymond Carlos MD, PhD) No acute medical problems Surgical History No pertinent past surgical history Social History Smoking Status: Never smoker Hx Alcohol Use: No Hx Substance Use: No Preferred Language: Hebrew Communication Ability: Effective Workers Compensation Claims Adjuster Required: No Beliefs That Will Affect Care: None Current Living Situation: Spouse Other Information That Helps Us Care for You: No Feels Safe at Home: Yes Safety Concerns: Feels Safe At This Time Assistive Devices: Cane Review of Systems Review of Systems: Negative except as per HPI Physical Exam Constitutional: WD/WN, vitals as above (BMI is 54.2 with morbid obesity being greater than 40) Eyes: Extraocular muscles intact. Sclera anicteric. ENMT: Oral mucosa is pink Neck: Thick. No appreciable JVD or bruits Respiratory: Clear to auscultation bilaterally. No wheezing, rhonchi, or rales appreciated. Fair air movement. Cardiovascular: Mostly regular rhythm with occasional premature beat. Normal rate. S4 gallop. Distant heart sounds. I do not appreciate any murmurs. No edema. Musculoskeletal: no cyanosis or clubbing, extremities motor strength 5/5 Neurologic: Cognition is intact. Speech is fluent. No focal motor deficits. No tremor. Psychiatric: A+Ox3, euthymic affect Results & Data Vital Signs (Past 12 Hours) Vital Signs Temp Pulse Pulse Resp BP Pulse Ox O2 Del Method 11/09/22 15:10 36.6 C 88 20 124/80 95 Room Air 11/09/22 08:00 74 11/09/22 12:25 36.4 C L 79 18 121/78 94 Room Air 11/09/22 07:56 36.4 C L 90 20 111/73 94 Room Air PG Care Time/CCT Total # of Minutes Spent Total Time Spent with Patient: Total time spent is greater than 50% in coordination of care (as documented) at patient's floor/unit and/or counseling patient: Coding Level of Care Code 08116 ER DEPT VISIT MOD LVL 4 Diagnoses Elevated troponin R77.8 Cardiomyopathy I42.9 Hyperlipidemia E78.5
--- NOTE | 2022-11-09 23:55 | Hospitalist Progress Note ---
Date of Service November 09, 2022 Assessment & Plan (1) Cardiomyopathy: (2) Hyperlipidemia: (3) Morbid obesity: (4) Elevated troponin: (5) DMII (diabetes mellitus, type 2): Plan Elevated Trops/Chest pain hs-trops peaked about 2900 Echo-only notes mild global hypokinesis of left ventricle Continue heparin drip, continue metoprolol tartrate 25mg PO BID Scheduled nitropaste q6h Discussed with both cardiology and interventional cardiology-appreciate recs DMII hgba1c >12 Started on basal insulin, ISS Pt states he does not want to use insulin at home nor the injectable medications HLD Started on atorvastatin 40mg daily DVT proph: heparin drip Diet: DMII CODE STATUS: Full code Admission and Anticipated Discharge Date Admission Date: November 08, 2022 Subjective Pt seen this AM. Having persistent left shoulder pain. States he received 2 doses of morphine for it and not resolving. Notes he recently got health insurance, states he will NOT take an injectable medication for diabetes nor insulin. Review of Systems Review of Systems: All systems reviewed & are unremarkable except as noted in Subjective Physical Exam Physical Exam: General: Alert, oriented. No acute distress Skin: No noted rashes or bruises Neuro: No gross deficits HEENT: NC/AT CV: RRR, Normal s1, s2. Resp: Breath sounds clear bilaterally, no increased effort of breathing. Abdomen: Soft, nontender, nondistended. No guarding. No organomegaly appreciated. Results & Data Results & Data Vital Signs (Past 12 Hours) Vital Signs Temp Pulse Resp BP Pulse Ox O2 Del Method 11/09/22 19:48 36.6 C 87 20 134/83 95 Room Air 11/09/22 15:10 36.6 C 88 20 124/80 95 Room Air 11/09/22 12:25 36.4 C L 79 18 121/78 94 Room Air
[2022-11-10] MEDS: HEPARIN SODIUM/DEXTROSE 25,000 UNITS/500 ML BAG IV SCH ×4 (04:35→15:31)
[2022-11-10] MEDS: NITROGLYCERIN 2% OINTMENT 30GM TUBE EXT SCH ×3 (06:34→18:13)
[2022-11-10 08:01] LABS: Hematocrit (blood only) 41.8 % (42.0-52.0); Hemoglobin 14.7 g/dl (14.0-18.0); Mean Corpuscular Hemoglobin 29.2 pg (25.0-34.0); Mean Corpuscular Hgb Conc 35.2 g/dL (32.0-36.0); Mean Corpuscular Volume 82.9 fL (80.0-100.0); Mean Platelet Volume 10.1 fL (9.4-12.4); Neutrophils % (auto) 55.3 %; Platelet Count 229 K/uL (130-400); RDW Coefficient of Variation 12.5 % (11.5-14.5); RDW Standard Deviation 37.7 fL (36.4-46.3); Red Blood Count 5.04 M/uL (4.70-6.10)
[2022-11-10 08:02] LABS: Basophils # (auto) 0.02 K/uL (0.00-0.20); Basophils % (auto) 0.2 %; Eosinophils # (auto) 0.02 K/uL (0.00-0.50); Eosinophils % (auto) 0.2 %; Immature Granulocytes # (auto) 0.03 K/uL (0.01-0.20); Immature Granulocytes % (auto) 0.4 %; Lymphocytes # (auto) 2.99 K/uL (1.20-3.40); Lymphocytes % (auto) 35.2 %; Monocytes # (auto) 0.74 K/uL (0.11-0.59); Monocytes % (auto) 8.7 %
[2022-11-10 08:15] LABS: Partial Thromboplastin Ratio 1.4; Partial Thromboplastin Time 38.1 Seconds (21.0-31.0)
[2022-11-10 08:17] LABS: BUN Creatinine Ratio 16.2 (10-20); Calcium 8.7 mg/dl (8.6-10.3); Creatinine Clr Calc Pharmacy 226.2 ml/min; Est GFR (African American) 131.9 ml/min; Est GFR (Non-African American) 113.8 ml/min; Potassium 3.8 mmol/L (3.5-5.1)
[2022-11-10] MEDS: LANTUS PER UNIT CHARGE SQ SCH (08:17)
[2022-11-10] MEDS: INSULIN ASPART PER UNIT CHARGE SC SCH ×4 (08:17→20:25)
[2022-11-10] MEDS: ATORVASTATIN 40 MG TAB PO SCH (08:19)
[2022-11-10] MEDS: ASPIRIN 81 MG ECTAB PO SCH (08:19)
[2022-11-10] MEDS: METOPROLOL TARTRATE 25 MG TAB PO SCH (08:19)
[2022-11-10] MEDS ORDERED: IOVERSOL 350 MG 125mL Prefilled Syringe IV ONE (09:46)
--- NOTE | 2022-11-10 10:22 | CT Scan Report ---
CHEST CTA for PULMONARY ARTERIES CT DOSE: 904.81 mGy.cm HISTORY: Atypical chest pain. TECHNIQUE: Multiaxial CT images of the chest were performed following the intravenous administration of contrast to evaluate the pulmonary arteries. 3D/Maximal intensity projection images were also obta ined. Sagittal and coronal reformations were also reviewed. A dose lowering technique was utilized a dhering to the principles of ALARA. COMPARISON STUDY: Chest CT 11/08/2022. FINDINGS: Normal caliber thoracic aorta with no evidence for dissection. The heart is normal in size. No pleural or pericardial effusions. No filling defects within the pulmonary arteries to suggest a p ulmonary embolus. Limited views the upper abdomen demonstrate a normal liver, spleen, and adrenal gla nds. Normal esophagus. The thyroid gland enhances normally. No mediastinal or hilar lymphadenopathy. No acute fractures identified. No pneumothorax. The central airways are patent. No focal lung consoli dations to suggest a pneumonia. No evidence for pulmonary edema. IMPRESSION: No evidence for a pulmonary embolus. ACT 112: Negative or not required by law. Electronically signed by: Raheel Pope M.D. 11/10/2022 10:21 AM
--- NOTE | 2022-11-10 12:31 | Cardiology Progress Note ---
Date of Service November 10, 2022 Assessment & Plan (1) Elevated troponin: (2) Substernal precordial chest pain: (3) Morbid obesity: (4) Hyperlipidemia: Plan Patient is a 42-year-old male with multiple cardiovascular risk factors who is developed severe substernal/epigastric pain approximately 12 hours prior to ER presentation. Symptoms lasted upwards of 90 minutes with only low-level chest pressure symptoms afterwards consistent with sensed atrial and ventricular ectopy. No acute dynamic ST segment changes on EKG but troponin elevated Echocardiogram demonstrates mild diffuse LV dysfunction without segmental abnormality Discussed findings in detail with patient. Would recommend diagnostic coronary angiography for further risk factor stratification We will continue IV heparin Continue oral beta-arpita with metoprolol We will reduce topical nitrates to 1 inch every 6 given headache Continue aspirin and statin Tentative plans for procedure Friday a.m. unless patient becomes unstable, dynamic ST segment changes develop 11/10/2022 As above. No further signs of cardiac instability Plan diagnostic coronary angiography in a.m. We will change metoprolol to tartrate to metoprolol succinate 50 twice daily Anticipating adding LAVERN inhibitor to regimen N.p.o. after midnight for procedure Admission and Anticipated Discharge Date Admission Date: November 08, 2022 Subjective Patient seen and examined, chart, medications, telemetry reviewed. No further abdominal chest neck or shoulder pain. No arrhythmias on telemetry. No fevers or chills. No hypoxia CT chest unrevealing Physical Exam Constitutional: + morbidly obese; no acute distress Eyes: PERRL, conjunctivae normal, anicteric sclerae ENMT: external ear and nose normal, oropharynx normal Neck: + thick neck Respiratory: normal respiratory effort, lungs clear to auscultation Cardiovascular: RRR, no murmur, no edema Gastrointestinal (Abdomen): normal bowel sounds, soft, nontender, no hepatosplenomegaly Musculoskeletal: no cyanosis or clubbing, extremities motor strength 5/5 Skin: no rashes, warm and dry Results & Data Vital Signs (Past 12 Hours) Vital Signs Temp Pulse Resp BP BP Pulse Ox O2 Del Method 11/10/22 11:24 36.3 C L 89 22 126/79 94 Room Air 11/10/22 07:38 36.9 C 85 22 132/78 94 Room Air 11/10/22 03:45 37.1 C 106 H 20 117/77 93 Room Air Laboratory Results Laboratory Results - last 24 hr 11/09/22 11/09/22 11/10/22 16:01 20:06 07:27 WBC 8.50 RBC 5.04 Hgb 14.7 Hct 41.8 L MCV 82.9 MCH 29.2 MCHC 35.2 RDW Std Deviation 37.7 RDW Coeff of Sujey 12.5 Plt Count 229 MPV 10.1 Immature Gran % (Auto) 0.4 Neut % (Auto) 55.3 Lymph % (Auto) 35.2 [place] % (Auto) 8.7 Eos % (Auto) 0.2 Baso % (Auto) 0.2 Neut # (Auto) 4.70 Lymph # (Auto) 2.99 [place] # (Auto) 0.74 H Eos # (Auto) 0.02 Baso # (Auto) 0.02 Immature Gran # (Auto) 0.03 APTT PTT Ratio Sodium Potassium Chloride Carbon Dioxide Anion Gap BUN Creatinine Est Cr Clr Drug Dosing Est GFR ( Amer) Est GFR (Non-Af Amer) BUN/Creatinine Ratio Glucose POC Glucose 240 H 283 H Calcium 11/10/22 11/10/22 11/10/22 07:27 07:27 07:40 WBC RBC Hgb Hct MCV MCH MCHC RDW Std Deviation RDW Coeff of Sujey Plt Count MPV Immature Gran % (Auto) Neut % (Auto) Lymph % (Auto) [place] % (Auto) Eos % (Auto) Baso % (Auto) Neut # (Auto) Lymph # (Auto) [place] # (Auto) Eos # (Auto) Baso # (Auto) Immature Gran # (Auto) APTT 38.1 H PTT Ratio 1.4 Sodium 134 L Potassium 3.8 Chloride 102 Carbon Dioxide 25 Anion Gap 7 BUN 12 Creatinine 0.74 Est Cr Clr Drug Dosing 226.2 Est GFR ( Amer) 131.9 Est GFR (Non-Af Amer) 113.8 BUN/Creatinine Ratio 16.2 Glucose 263 H POC Glucose 271 H Calcium 8.7 11/10/22 11:27 WBC RBC Hgb Hct MCV MCH MCHC RDW Std Deviation RDW Coeff of Sujey Plt Count MPV Immature Gran % (Auto) Neut % (Auto) Lymph % (Auto) [place] % (Auto) Eos % (Auto) Baso % (Auto) Neut # (Auto) Lymph # (Auto) [place] # (Auto) Eos # (Auto) Baso # (Auto) Immature Gran # (Auto) APTT PTT Ratio Sodium Potassium Chloride Carbon Dioxide Anion Gap BUN Creatinine Est Cr Clr Drug Dosing Est GFR ( Amer) Est GFR (Non-Af Amer) BUN/Creatinine Ratio Glucose POC Glucose 223 H Calcium
[2022-11-10] MEDS ORDERED: METOPROLOL SUCC 25MG EXT REL TAB PO ONE (12:32)
[2022-11-10] MEDS ORDERED: PHARMACY GLYCEMIC MGMT CONSULT PRN (13:16)
--- NOTE | 2022-11-10 13:52 | Pharmacy Report ---
Pharmacy Glycemic Short Note 2 - Date of Service November 10, 2022 - Glycemic Short BSG Results (Last 24 hours): 11/09/22 11/09/22 11/10/22 16:01 20:06 07:27 Glucose 263 H POC Glucose 240 H 283 H 11/10/22 11/10/22 07:40 11:27 Glucose POC Glucose 271 H 223 H OUTPATIENT ANTIDIABETIC REGIMEN: * N/A * HbA1C = 12.1% ASSESSMENT: * Mr Kelley is a 42 y/o M with a PMH of T2DM who presents with chest pain. * Yesterday BSGs were [phone] mg/dL. Patient received 48 units of insulin (20 units of basal and 28 units of bolus). * Today's BSGs are 271-223 mg/dL. Pharmacy was consulted after lunch. * Patient received 10 units of Lantus this AM. Will add 30 units of Lantus now to equal 40 units today. This will equal full weight-based stress of 2 (using adjusted body weight due to body habitus). * Will re-evaluate tomorrow morning since patient will be NPO at midnight due to coronary angiography. * Novolog weight-based stress 2/3. PLAN FOR INPATIENT GLYCEMIC CONTROL: * Basal insulin * Lantus 30 units SQ x 1 (to equal 40 units today) then re-evaluate on 11/11 * Bolus insulin * NovoLog per scale ACHS or Q6hrs while NPO * Goal Range: Low 110 mg/dL - High 140 mg/dL * Correction Factor: 20 mg/dL/unit * Nutritional / Prandial insulin per carb ratio of 1 unit per 5 grams CHO consumed
[2022-11-10] MEDS ORDERED: LANTUS PER UNIT CHARGE SQ ONE (14:00)
[2022-11-10 14:53] LABS: Partial Thromboplastin Ratio 1.4; Partial Thromboplastin Time 38.6 Seconds (21.0-31.0)
--- NOTE | 2022-11-10 19:53 | Hospitalist Progress Note ---
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 Elevated Trops/Chest pain States that he was at work, engaged in nonexertional activity, when he started having severe chest pain that lasted about an hour. Since then had been having a persistent "heavy heartbeat" and dull ache in the area. EKG with sinus rhythm and PACs, hs-troponins elevated >2000, peaked about 2900. Echo-only notes mild global hypokinesis of left ventricle CTA chest PE- no PE noted Hgba1c >12 and lipid panel elevated Continue heparin drip, metoprolol succinate 50mg PO BID per cardiology recs Scheduled nitropaste q6h Discussed with both cardiology and interventional cardiology- will need cath in near future. Sooner if he destabilizes. Per cardiology, diagnostic coronary angiography procedure in AM. Continue metoprolol succinate 50mg PO BID, considering LAVERN as well. Appreciate recs. DMII hgba1c >12 Started on basal insulin, ISS On statin (see below), consider LAVERN/ARB for renoprotection as well Encourage diabetic eye and foot exams as an outpatient Pt states he does not want to use insulin at home nor the injectable medications, however notes today might consider medication like ozempic since once weekly health educator consulted inpatient, pharmacy glycemic consult as well HLD Lipid panel elevated Started on atorvastatin 40mg daily DVT proph: heparin drip Diet: DMII CODE STATUS: Full code Admission and Anticipated Discharge Date Admission Date: November 08, 2022 Subjective States that he is feeling better. L shoulder pain has resolved. Denies chest tightness. Review of Systems Review of Systems: All systems reviewed & are unremarkable except as noted in Subjective Physical Exam Physical Exam: General: Alert, oriented. No acute distress Skin: No noted rashes or bruises Neuro: No gross deficits HEENT: NC/AT CV: RRR, Normal s1, s2. Resp: Breath sounds clear bilaterally, no increased effort of breathing. Abdomen: Soft, nontender, nondistended. Results & Data Results & Data Vital Signs (Past 12 Hours) Vital Signs Temp Pulse Resp BP BP Pulse Ox O2 Del Method 08/27/23 11:24 36.3 C L 89 22 126/79 94 Room Air 11/10/22 07:38 36.9 C 85 22 132/78 94 Room Air 11/10/22 03:45 37.1 C 106 H 20 117/77 93 Room Air
[2022-11-10] MEDS: METOPROLOL SUCC 50MG EXT REL TAB PO SCH (20:24)
[2022-11-10 22:00] LABS: Partial Thromboplastin Ratio 1.4
[2022-11-10 22:27] LABS: Partial Thromboplastin Time 40.4 Seconds (21.0-31.0)
[2022-11-11] MEDS: NITROGLYCERIN 2% OINTMENT 30GM TUBE EXT SCH ×2 (00:03→06:01)
[2022-11-11] MEDS: SODIUM CHLORIDE 0.9% 1,000 ML IV SCH ×2 (00:03→11:44)
[2022-11-11] MEDS: INSULIN ASPART PER UNIT CHARGE SC SCH ×5 (00:23→17:16)
[2022-11-11] MEDS: HEPARIN SODIUM/DEXTROSE 25,000 UNITS/500 ML BAG IV SCH (02:07)
[2022-11-11 06:29] LABS: Basophils # (auto) 0.02 K/uL (0.00-0.20); Basophils % (auto) 0.2 %; Eosinophils # (auto) 0.05 K/uL (0.00-0.50); Eosinophils % (auto) 0.6 %; Hematocrit (blood only) 40.2 % (42.0-52.0); Hemoglobin 14.3 g/dl (14.0-18.0); Immature Granulocytes # (auto) 0.02 K/uL (0.01-0.20); Immature Granulocytes % (auto) 0.2 %; Lymphocytes # (auto) 3.87 K/uL (1.20-3.40); Lymphocytes % (auto) 48.1 %; Mean Corpuscular Hemoglobin 29.1 pg (25.0-34.0); Mean Corpuscular Hgb Conc 35.6 g/dL (32.0-36.0); Mean Corpuscular Volume 81.7 fL (80.0-100.0); Mean Platelet Volume 10.2 fL (9.4-12.4); Monocytes # (auto) 0.69 K/uL (0.11-0.59); Monocytes % (auto) 8.6 %; Neutrophils # (auto) 3.39 K/uL (1.40-6.50); Neutrophils % (auto) 42.3 %; Platelet Count 218 K/uL (130-400); RDW Coefficient of Variation 12.3 % (11.5-14.5); RDW Standard Deviation 36.8 fL (36.4-46.3); Red Blood Count 4.92 M/uL (4.70-6.10); White Blood Count 8.04 K/ul (4.8-10.8)
[2022-11-11 07:00] LABS: Partial Thromboplastin Ratio 1.7; Partial Thromboplastin Time 46.9 Seconds (21.0-31.0)
[2022-11-11] MEDS ORDERED: LIDOCAINE 1% LOCAL 20 ML VIAL ONE (07:05)
[2022-11-11 07:07] LABS: BUN Creatinine Ratio 16.7 (10-20); Calcium 8.7 mg/dl (8.6-10.3); Creatinine Clr Calc Pharmacy 231.6 ml/min; Est GFR (African American) 133.4 ml/min; Est GFR (Non-African American) 115.1 ml/min; Potassium 3.5 mmol/L (3.5-5.1)
[2022-11-11] MEDS ORDERED: ASPIRIN 325 MG ECTAB PO ONE (07:54)
[2022-11-11] MEDS ORDERED: LANTUS PER UNIT CHARGE SC SCH (08:00)
[2022-11-11] MEDS: ASPIRIN 81 MG ECTAB PO SCH (08:46)
[2022-11-11] MEDS: ATORVASTATIN 40 MG TAB PO SCH (08:46)
[2022-11-11] MEDS: METOPROLOL SUCC 50MG EXT REL TAB PO SCH (09:00)
--- NOTE | 2022-11-11 09:24 | Hospitalist Progress Note ---
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 Elevated Trops/Chest pain States that he was at work, engaged in nonexertional activity, when he started having severe chest pain that lasted about an hour. Since then had been having a persistent "heavy heartbeat" and dull ache in the area. EKG with sinus rhythm and PACs, hs-troponins elevated >2000, peaked about 2900. Echo-only notes mild global hypokinesis of left ventricle CTA chest PE- no PE noted Hgba1c >12 and lipid panel elevated Continue heparin drip, metoprolol succinate 50mg PO BID per cardiology recs Scheduled nitropaste q6h Discussed with both cardiology and interventional cardiology- will need cath in near future. Sooner if he destabilizes. Per cardiology, diagnostic coronary angiography procedure in AM. Continue metoprolol succinate 50mg PO BID, considering LAVERN as well. Appreciate recs. DMII hgba1c >12 Started on basal insulin, ISS On statin (see below), consider LAVERN/ARB for renoprotection as well Encourage diabetic eye and foot exams as an outpatient Pt states he does not want to use insulin at home nor the injectable medications, however notes today might consider medication like ozempic since once weekly perinatal educator consulted inpatient, pharmacy glycemic consult as well HLD Lipid panel elevated Started on atorvastatin 40mg daily DVT proph: heparin drip Diet: DMII CODE STATUS: Full code Admission and Anticipated Discharge Date Admission Date: November 08, 2022 Results & Data Results & Data Vital Signs (Past 12 Hours) Vital Signs Temp Pulse Pulse Resp BP Pulse Ox O2 Del Method 11/11/22 08:59 91 H 11/11/22 07:50 36.9 C 83 20 112/76 95 Room Air 11/11/22 00:00 87 11/11/22 03:54 36.7 C 90 18 133/74 95 Room Air 11/10/22 23:20 36.7 C 79 18 128/81 94 Room Air Laboratory Results Short CBC 11/11/22 Range/Units 05:27 WBC 8.04 (4.8-10.8) K/ul Hgb 14.3 (14.0-18.0) g/dl Hct 40.2 L (42.0-52.0) % Plt Count 218 (130-400) K/uL [facility] 11/11/22 05:27 Sodium 137 Potassium 3.5 Chloride 104 Carbon Dioxide 24 BUN 12 Creatinine 0.72 Glucose 180 H Calcium 8.7 Medications Administered Current Inpatient Medications Aspirin (Aspirin 81 Mg Ectab) 81 mg PO QAM [facility] Stop: 12/09/22 08:59 Last Admin: 11/11/22 08:46 Dose: 81 mg Atorvastatin Calcium (Atorvastatin 40 Mg Tab) 40 mg PO QAM [facility] Stop: 12/09/22 08:59 Last Admin: 11/11/22 08:46 Dose: 40 mg Dextrose (Dextrose 50% 50 Ml Syringe) 25 - 50 ml IV UD PRN; Protocol PRN Reason: Hypoglycemia Protocol Stop: 12/09/22 04:01 Glucagon (Glucagon For Inj 1 Mg Vial) 1 mg SQ UD PRN; Protocol PRN Reason: Hypoglycemia Protocol Stop: 12/09/22 04:01 Glucose (Glucose 10 Tab/Tube) 4 - 8 tab PO UD PRN; Protocol PRN Reason: Hypoglycemia Treatment Stop: 12/09/22 04:01 Glucose (Glucose 40% Gel 15 Gm Tube) 15 - 30 gm PO UD PRN; Protocol PRN Reason: Hypoglycemia Protocol Stop: 12/09/22 04:01 Heparin Sodium/Dextrose (Heparin Sodium/Dextrose) 25,000 units in 500 mls @ 48 mls/hr IV .[id number]; Protocol Stop: 12/08/22 17:29 Last Titration: 11/11/22 07:14 Dose: 2,400 units/hr, 48 mls/hr Sodium Chloride (Nss 1000ml) 1,000 mls @ 93 mls/hr IV .[id number] [facility] Stop: 12/11/22 00:00 Last Admin: 11/11/22 00:03 Dose: 93 mls/hr Insulin Aspart (Insulin Aspart Per Unit Charge) 0 units SC Q4 [facility]ENKATES[facility] Stop: 12/11/22 00:00 Last Admin: 11/11/22 08:46 Dose: 4 units Metoprolol Succinate (Metoprolol Succ 50mg Ext Rel Tab) 50 mg PO BID [facility] Stop: 12/10/22 20:59 Last Admin: 11/11/22 09:00 Dose: Not Given Miscellaneous (Carbohydrates For Hypoglycemia ) 15 - 30 gm PO UD PRN PRN Reason: Hypoglycemia Protocol Stop: 12/09/22 04:01 Miscellaneous Information (Pharmacy Glycemic Mgmt Consult) 1 each N/A UD PRN; Protocol PRN Reason: Consult Stop: 12/10/22 13:15 Morphine Sulfate (Morphine Sulfate 4 Mg/Ml 1 Ml Carp\\Vial) 4 mg IV Q4H PRN PRN Reason: Pain Stop: 11/23/22 04:09 Last Admin: 11/09/22 21:48 Dose: 4 mg Nitroglycerin (Nitroglycerin 2% Ointment 30gm Tube) 1 inch EXT Q6 [facility]ATES[facility] Stop: 12/09/22 17:59 Last Admin: 11/11/22 06:01 Dose: 1 inch Ondansetron HCl (Ondansetron Inj 2 Mg/Ml 2 Ml Vial) 4 mg IV Q6H PRN PRN Reason: Nausea Stop: 12/08/22 17:45 Oxycodone HCl (Oxycodone Hcl Ir 5 Mg Tab (Immediate Release)) 5 - 10 mg PO QID PRN PRN Reason: Pain Stop: 11/22/22 20:59 Last Admin: 11/09/22 20:34 Dose: 10 mg
--- NOTE | 2022-11-11 09:46 | Pre Anesthesia Assessment ---
Date of Service November 11, 2022 Pre Sedation Assessment Vital Signs Temp Pulse Pulse Resp BP Pulse Ox O2 Del Method 11/11/22 08:59 91 H 11/11/22 07:50 98.4 F 83 20 112/76 95 Room Air 11/11/22 00:00 87 11/11/22 03:54 98.1 F 90 18 133/74 95 Room Air 11/10/22 23:20 98.1 F 79 18 128/81 94 Room Air 11/10/22 19:44 98.1 F 84 16 121/74 95 Room Air 11/10/22 14:00 96 H 11/10/22 15:23 98.2 F 87 20 119/76 94 Room Air 11/10/22 11:24 97.3 F L 89 22 126/79 94 Room Air Cardiovascular RRR, no murmur, no edema Respiratory normal respiratory effort, lungs clear to auscultation Pre-Sedation Airway Assessment Smoking Status: Never smoker Hx Sleep Apnea: No Hx Difficult Intubation: No Short, Thick Neck: No Thyromental Distance: > or= 3.5 Finger Breadths Oral Cavity: + WNL Mallampati Class: III ASA: ASA3 Procedure Planning Contraindications for Sedation: none Current Medications Reviewed: Yes Notes The planned sedation has been discussed with the patient. Informed Consent was obtained. I have identified the patient, determined the appropriateness of sedation and have assessed the patient immediately prior to the procedure. All medicine(s) and interventions are by my order.
[2022-11-11] MEDS ORDERED: fentaNYL citrate PF 100 MCG/2 ML VIAL ONE (10:30)
[2022-11-11] MEDS ORDERED: HEPARIN (PORCINE) 1000 UNIT/ML 10 ML (CATH LAB USE ONLY) ONE (10:30)
[2022-11-11] MEDS ORDERED: niCARdipine HCL INJ 2.5 MG/ML 10 ML AMP ONE (10:30)
[2022-11-11] MEDS ORDERED: MIDAZOLAM HCL 1 MG/ML 2ML VIAL ONE (10:30)
[2022-11-11] MEDS ORDERED: NITROGLYCERIN/D5W 100MCG/ML 20ML SYR ONE (10:31)
--- NOTE | 2022-11-11 11:14 | Post Anesthesia Assessment ---
Date of Service November 11, 2022 Post Sedation Assessment Vital Signs Temp Pulse Pulse Pulse Resp BP BP 11/11/22 09:53 83 18 128/86 11/11/22 08:59 91 H 11/11/22 07:50 98.4 F 83 20 112/76 11/11/22 00:00 87 11/11/22 03:54 98.1 F 90 18 133/74 11/10/22 23:20 98.1 F 79 18 128/81 11/10/22 19:44 98.1 F 84 16 121/74 11/10/22 14:00 96 H 11/10/22 15:23 98.2 F 87 20 119/76 11/10/22 11:24 97.3 F L 89 22 126/79 Pulse Ox O2 Del Method 11/11/22 09:53 97 Room Air 11/11/22 08:59 11/11/22 07:50 95 Room Air 11/11/22 00:00 11/11/22 03:54 95 Room Air 11/10/22 23:20 94 Room Air 11/10/22 19:44 95 Room Air 11/10/22 14:00 11/10/22 15:23 94 Room Air 11/10/22 11:24 94 Room Air Recovery Score Activity: Moves 4 extremities Respiration: Deep Breath/Cough Circulation: +/-20% PreAnes Value Consciousness: Fully Awake Oxygen Saturation: O2 needed for >90% Discharge Sedation Level of Care: Fast Track Phase II Post Sedation Plan On clinical assessment, the patient appears to have tolerated the sedation without complications. Patient is recovering as anticipated. Patient will continue to be monitored by nursing and may be discharged when sedation discharge criteria are met per below protocol. Upon Completions of procedure up to 15 minutes continue every 5 minute vital signs and the P.A.R. score; then discharge to a Phase I or Fast Track to Phase II per the following guidelines: * Discharge Patient to appropriate Phase II area if PAR is 8 or greater or return to pre- procedure baseline. The post - procedure orders will be as directed. * If PAR score is less than 8 or not return to pre-procedure baseline then patient will follow Phase I monitoring till PAR is reached for Phase II. The Phase I may be done in procedure room or may call to secure a Phase I area. * If naloxone or flumazenil are used for reversal, hold in Phase I for continued monitoring from when last reversal dose was given for a minimum of 60 minutes or longer pending the nurse and/or physician discretion of patient condition before discharge to Phase II. Please call the Sedation Physician to re-evaluate and complete post-note for discharge to Phase II area. Do NOT discharge from procedure sedation or Phase 1 until post- sedation evaluation note is complete by procedure /sedation MD Sedation Discharge Instructions to be given to the patient at discharge to home.
--- NOTE | 2022-11-11 11:28 | Cardiac Catheterization ---
[facility] Data: Customer Service Technician Cardiac Status Clinical evaluation leading to the procedure CAD Presenation: Non STEMI Anginal Classification: CCS IV Diagnostic Physicians Name: Jose Guadalupe Damian MD Closure Device Recommendations: Medical Therapy and/or Counseling Cardiac Cath Procedure Full Procedure Date November 11, 2022 Pre-Procedure Diagnosis Pre-Procedure Diagnosis: Non STEMI AUC Score AUC Score: 8 Post-Procedure Diagnosis Post-Procedure Diagnosis: Moderate CAD Procedure(s) Performed Procedure(s) Performed: Coronary Angiography, Left Heart Cath and Fractional Flow [employer] Accountant Jose Guadalupe Damian MD Estimated Blood Loss Estimated Blood Loss: 10 Medication(s) Medication(s): Fentanyl, Heparin, Lidocaine 1%, Nicardipine, Nitroglycerin and Versed Summary of Findings Indication: NSTEMI Access: 6 Fr right radial artery Catheters: [place], pigtail, JR4 guide Findings: LM -normal caliber, no significant disease LAD -large caliber, extends around apex, no significant disease. Small D1 without disease. Medium D2 30% ostial. Small to medium D3 with 70 to 80% ostial stenosis. Circumflex -medium caliber, no significant disease. Medium high OM1 without disease, bifurcating OM 2 without disease. RCA -dominant, large caliber, 50-60% mid RCA stenosis, distal luminal irregularities LVEDP -14 FFR procedure: -RCA cannulated with JR4 guide -Blendin FFR wire placed into distal RCA -IFR 0.96 -Coronary angiography revealed no apparent complications post wire/catheter removal Arterial Closure: TR band Summary: 1. Moderate single major epicardial vessel disease -50% mid RCA (nonobstructive by IFR 0.96). 2. Severe branch vessel [id number]% ostial small to medium D3 3. Normal intracardiac filling pressure Recommendations: No high risk CAD identified. Recommend medical management of moderate RCA and ostial diagonal disease. Discontinue heparin. Start clopidogrel for medical management of NSTEMI Continued ASCVD risk factor modification including diabetes management Hemodynamics Rest Ao:: 103/68/81 Final Ao: 122/80/97 LV: 110/14 Recommendations Recommendations: Medical Therapy and/or Counseling Specimens Specimens: None Radiation Exposure (mGy) 1315 Contrast (mls) 60 Anesthesia Moderate [id number] Procedural Complication(s) None Disposition PCU I attest to the content of the Intraoperative Record and any orders documented therein. Any exceptions are noted below. [facility] Card Cath Procedure Codes Cardiac Catheterization Procedure 1: Cardiovascular Cath Procedures: 17938 Coronaries and LHC (+/-LV) Procedure 2: Cardiovascular Cath Procedures: 32857 (Doppler) Pressure Wire Moderate Sedation Procedure 1: Sedation/Anesthesia: 00052 Mod Sedation by the same physician;Init15 Min Child Age 5 & Up PG Care Time/CCT Total # of Minutes Spent Total Time Spent with Patient: Total time spent is greater than 50% in coordination of care (as documented) at patient's floor/unit and/or counseling patient:
[2022-11-11] MEDS ORDERED: SODIUM CHLORIDE 0.9% 1,000 ML IV SCH (11:30)
--- NOTE | 2022-11-11 11:48 | Cardiology Progress Note ---
Date of Service November 11, 2022 Assessment & Plan (1) Elevated troponin: (2) Substernal precordial chest pain: (3) Morbid obesity: (4) Hyperlipidemia: (5) Coronary artery disease: Plan Patient is a 42-year-old male with multiple cardiovascular risk factors who is developed severe substernal/epigastric pain approximately 12 hours prior to ER presentation. Symptoms lasted upwards of 90 minutes with only low-level chest pressure symptoms afterwards consistent with sensed atrial and ventricular ectopy. No acute dynamic ST segment changes on EKG but troponin elevated Echocardiogram demonstrates mild diffuse LV dysfunction without segmental abnormality Discussed findings in detail with patient. Would recommend diagnostic coronary angiography for further risk factor stratification We will continue IV heparin Continue oral beta-arpita with metoprolol We will reduce topical nitrates to 1 inch every 6 given headache Continue aspirin and statin Tentative plans for procedure Friday a.m. unless patient becomes unstable, dynamic ST segment changes develop 11/10/2022 As above. No further signs of cardiac instability Plan diagnostic coronary angiography in a.m. We will change metoprolol to tartrate to metoprolol succinate 50 twice daily Anticipating adding LAVERN inhibitor to regimen N.p.o. after midnight for procedure 11/11/2022 Issues addressed as follows 1. Acute chest pain with elevated troponin. Diagnostic cardiac catheterization demonstrating moderate coronary atherosclerosis. We will treat as non-ST elevation myocardial infarction. Ultimate goal medical therapies with metoprolol succinate 50 mg twice per day. Add lisinopril 5 mg p.o. daily continue daily aspirin 81 mg/day. High dose of lipid-lowering therapy with atorvastatin 40 mg/day Clopidogrel 75 mg daily for minimum 30 days. Follow-up cardiology 3 to 4 weeks time Abimael Howell 2. Multiple cardiovascular risk factors addressing as above. Will need obesity and diabetes managed 3. Mild diffuse LV dysfunction. Guideline directed medical regimen as above Admission and Anticipated Discharge Date Admission Date: November 08, 2022 Subjective Patient seen and examined, chart, medications, telemetry reviewed. Patient underwent diagnostic coronary angiography demonstrating branch vessel disease and moderate nonobstructive disease Tolerated procedure well Physical Exam Constitutional: + morbidly obese; no acute distress Eyes: PERRL, conjunctivae normal, anicteric sclerae ENMT: external ear and nose normal, oropharynx normal Neck: + thick neck Respiratory: normal respiratory effort, lungs clear to auscultation Cardiovascular: RRR, no murmur, no edema Vessels: radial pulses present (Access site healing ) Gastrointestinal (Abdomen): normal bowel sounds, soft, nontender, no hepatosplenomegaly Musculoskeletal: no cyanosis or clubbing, extremities motor strength 5/5 Skin: no rashes, warm and dry Results & Data Vital Signs (Past 12 Hours) Vital Signs Temp Pulse Pulse Pulse Resp BP BP 11/11/22 11:13 72 16 138/94 11/11/22 09:53 83 18 128/86 11/11/22 08:59 91 H 11/11/22 07:50 36.9 C 83 20 112/76 11/11/22 00:00 87 11/11/22 03:54 36.7 C 90 18 133/74 Pulse Ox O2 Del Method 11/11/22 11:13 96 Room Air 11/11/22 09:53 97 Room Air 11/11/22 08:59 11/11/22 07:50 95 Room Air 11/11/22 00:00 11/11/22 03:54 95 Room Air Laboratory Results Laboratory Results - last 24 hr 11/10/22 11/10/22 11/10/22 14:02 16:43 20:08 WBC RBC Hgb Hct MCV MCH MCHC RDW Std Deviation RDW Coeff of Sujey Plt Count MPV Immature Gran % (Auto) Neut % (Auto) Lymph % (Auto) Irion % (Auto) Eos % (Auto) Baso % (Auto) Neut # (Auto) Lymph # (Auto) Irion # (Auto) Eos # (Auto) Baso # (Auto) Immature Gran # (Auto) APTT 38.6 H PTT Ratio 1.4 Sodium Potassium Chloride Carbon Dioxide Anion Gap BUN Creatinine Est Cr Clr Drug Dosing Est GFR ( Amer) Est GFR (Non-Af Amer) BUN/Creatinine Ratio Glucose POC Glucose 241 H 215 H Calcium 11/10/22 11/11/22 11/11/22 20:36 00:10 03:53 WBC RBC Hgb Hct MCV MCH MCHC RDW Std Deviation RDW Coeff of Sujey Plt Count MPV Immature Gran % (Auto) Neut % (Auto) Lymph % (Auto) Irion % (Auto) Eos % (Auto) Baso % (Auto) Neut # (Auto) Lymph # (Auto) Irion # (Auto) Eos # (Auto) Baso # (Auto) Immature Gran # (Auto) APTT 40.4 H* PTT Ratio 1.4 Sodium Potassium Chloride Carbon Dioxide Anion Gap BUN Creatinine Est Cr Clr Drug Dosing Est GFR ( Amer) Est GFR (Non-Af Amer) BUN/Creatinine Ratio Glucose POC Glucose 191 H 198 H Calcium 11/11/22 11/11/22 11/11/22 05:27 05:27 05:27 WBC 8.04 RBC 4.92 Hgb 14.3 Hct 40.2 L MCV 81.7 MCH 29.1 MCHC 35.6 RDW Std Deviation 36.8 RDW Coeff of Sujey 12.3 Plt Count 218 MPV 10.2 Immature Gran % (Auto) 0.2 Neut % (Auto) 42.3 Lymph % (Auto) 48.1 Irion % (Auto) 8.6 Eos % (Auto) 0.6 Baso % (Auto) 0.2 Neut # (Auto) 3.39 Lymph # (Auto) 3.87 H Irion # (Auto) 0.69 H Eos # (Auto) 0.05 Baso # (Auto) 0.02 Immature Gran # (Auto) 0.02 APTT 46.9 H* PTT Ratio 1.7 Sodium 137 Potassium 3.5 Chloride 104 Carbon Dioxide 24 Anion Gap 9 BUN 12 Creatinine 0.72 Est Cr Clr Drug Dosing 231.6 Est GFR ( Amer) 133.4 Est GFR (Non-Af Amer) 115.1 BUN/Creatinine Ratio 16.7 Glucose 180 H POC Glucose Calcium 8.7 11/11/22 11/11/22 08:42 11:36 WBC RBC Hgb Hct MCV MCH MCHC RDW Std Deviation RDW Coeff of Sujey Plt Count MPV Immature Gran % (Auto) Neut % (Auto) Lymph % (Auto) Irion % (Auto) Eos % (Auto) Baso % (Auto) Neut # (Auto) Lymph # (Auto) Irion # (Auto) Eos # (Auto) Baso # (Auto) Immature Gran # (Auto) APTT PTT Ratio Sodium Potassium Chloride Carbon Dioxide Anion Gap BUN Creatinine Est Cr Clr Drug Dosing Est GFR ( Amer) Est GFR (Non-Af Amer) BUN/Creatinine Ratio Glucose POC Glucose 212 H 203 H Calcium
[2022-11-11] MEDS ORDERED: CLOPIDOGREL BISULFATE 300 MG TAB PO STA (12:38)
--- NOTE | 2022-11-11 12:56 | Pharmacy Report ---
Pharmacy Glycemic Short Note 2 - Date of Service November 11, 2022 - Glycemic Short BSG Results (Last 24 hours): 11/10/22 11/10/22 11/11/22 16:43 20:08 00:10 Glucose POC Glucose 241 H 215 H 191 H 11/11/22 11/11/22 11/11/22 03:53 05:27 08:42 Glucose 180 H POC Glucose 198 H 212 H 11/11/22 11:36 Glucose POC Glucose 203 H OUTPATIENT ANTIDIABETIC REGIMEN: * N/A * HbA1C = 12.1% ASSESSMENT: 11/11 * BSGs yesterday [phone] mg/dL, received 68 units of insulin (40 units of basal, 28 units of bolus) * Fasting 212 mg/dL this morning prior to cath. Received reduced 20 units of lantus d/t unknown duration of NPO status, will give additional 30 unit dose following cath with dinner (this will be between adj. body weight stress of 2 and 3) * Heparin infusion (dextrose) has been discontinued * Carb ratio tightened to 4 (stress of 3) 11/10 * Mr Kelley is a 42 y/o M with a PMH of T2DM who presents with chest pain. * Yesterday BSGs were [phone] mg/dL. Patient received 48 units of insulin (20 units of basal and 28 units of bolus). * Today's BSGs are 271-223 mg/dL. Pharmacy was consulted after lunch. * Patient received 10 units of Lantus this AM. Will add 30 units of Lantus now to equal 40 units today. This will equal full weight-based stress of 2 (using adjusted body weight due to body habitus). * Will re-evaluate tomorrow morning since patient will be NPO at midnight due to coronary angiography. * Novolog weight-based stress 2/3. PLAN FOR INPATIENT GLYCEMIC CONTROL: * Basal insulin * Lantus 20 units SQ x 1, then additional 30 units for total of 50 then re- evaluate on 11/12 * Bolus insulin * NovoLog per scale ACHS or Q6hrs while NPO * Goal Range: Low 110 mg/dL - High 140 mg/dL * Correction Factor: 20 mg/dL/unit * Nutritional / Prandial insulin per carb ratio of 1 unit per 4 grams CHO consumed
--- NOTE | 2022-11-11 14:30 | Discharge Summary ---
Discharge Summary Date of Service November 11, 2022 Notes For Next Care Provider NSTEMI/nonischemic cardiomyopathy/morbid obesity/uncontrolled diabetic Declines medications for diabetes, but interested in Ozempic Medication Changes From Visit Continue metoprolol succinate 50 mg twice daily Add lisinopril 5 mg p.o. daily Continue daily aspirin 81 mg p.o. daily Add Lipitor 40 mg daily Add clopidogrel 75 mg for minimum 30 days Follow-up cardiology in 3 to 4 weeks time with Abimael Howell. 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 States that he was at work, nonexertional activity, when he started having severe chest pain that lasted for about an hour. Also self induced vomitting to see if that would help. Since then has been having a persistent "heavy heartbeat" and dull ache in the area. Girlfriend at the bedside. They state that he recently started a new job and did not have insurance. So he has not been on any diabetic medicines since being diagnosed in 2017. States that he has tried metformin at one point but had GI side effects and stopped. States he was trying to manage it with diet and exercise. Nonsmoker. Fam Hx of strokes and NM in grandfather, mother has Hx of "arrhythmias". Admission Exam Per Admitting Provider General: Alert, oriented. No acute distress Skin: No noted rashes or bruises Neuro: No gross deficits HEENT: NC/AT CV: RRR, Normal s1, s2. Resp: Breath sounds clear bilaterally, no increased effort of breathing. Abdomen: Soft, nontender, nondistended. No guarding. No organomegaly appreciated. Principal Dx & Hospital Course #1 = Principal Diagnosis (1) NSTEMI (non-ST elevated myocardial infarction): (2) NICM (nonischemic cardiomyopathy): (3) Morbid obesity: (4) DMII (diabetes mellitus, type 2): Plan 42-year-old man with multiple risk factors for cardiovascular disease presented with severe substernal/epigastric pain for 12 hours prior to ER presentation. Symptoms lasted upwards of 90 minutes with low-level chest pressure. There were no acute dynamic ST changes on EKG but troponin was elevated. Highly sensitive troponin was 2057, 2931, 2659. Patient was admitted to medicine and cardiology was consulted. An echocardiogram revealed mild diffuse LV dysfunction without segmental abnormality. And diagnostic coronary angiogram was recommended. Intravenous heparin was continued. Oral metoprolol was continued. Topical nitrates were initially started and were continued as well as aspirin and statin. He remained on service through the weekend with no further signs of cardiac instability. He underwent cardiac catheterization on 11/11/2022. Cardiac catheterization revealed moderate single major epicardial vessel disease of 50% stenosis in the mid RCA which was nonobstructive. There was also severe branch vessel disease of 75% in the ostial small to medium D3. Normal intracardiac filling pressure was seen. No high risk CAD was identified with recommendation of medical management of moderate RCA and ostial diagonal dis ease. He was started on clopidogrel for medical management of NSTEMI. Continued ASCVD risk factor modification including improved diabetes management was recommended. Hemoglobin A1c this admission was 12.1. He was adequately counseled on the risks of this and importance for achieving A1C goal <6.5-7. He verbalized understanding but was against pharmaceutical management at this time. He preferred to speak wtih his PCP regarding the option of once weekly Ozempic. He was discharged in stable condition with close primary care followup recommended. Discharge Exam morbidly obese mentating and ambulating at baseline and tolerating PO breathing without distress and oxygenating 94% on room air cardiac exam was normal, no peripheral edema, extremities warm and well perfused He was in sinus rhythm with occasional sinus tachycardia throughout the admission on telemetry. Occasional PVCs were noted. Updated Medication List Medication Instructions Recorded Confirmed Type acetaminophen 325 mg tablet 650 mg PO QID PRN Pain 11/26/20 11/08/22 History (Tylenol) ibuprofen 200 mg tablet 400 mg PO Q6H PRN Pain 11/26/20 11/08/22 History naproxen sodium 220 mg tablet 440 mg PO BID PRN Pain 11/26/20 11/08/22 History aspirin 81 mg tablet,delayed 81 mg PO QAM #90 tabs 11/11/22 Rx release atorvastatin 40 mg tablet 40 mg PO QAM #30 tabs 11/11/22 Rx clopidogrel 75 mg tablet 75 mg PO QAM #30 tabs 11/11/22 Rx lisinopril 5 mg tablet (Zestril) 5 mg PO QAM #30 tabs 11/11/22 Rx metoprolol succinate 50 mg 50 mg PO BID #60 tabs 11/11/22 Rx tablet,extended release 24 hr Hospital Stay Data Consultations 11/08/22 17:45 ED Decision to Admit Stat 11/08/22 17:46 Consult Cardiology Routine 11/09/22 08:37 Consult Cardiac Catheterization Routine Procedures Performed Operation Date: 11/11/22 09:30 Actual Procedures p Cath, Left with Cors and Vent - Zak Damian MD s Fraction Flow [place] SGL Ves - Zak Damian MD Diagnostic Imagining Performed 11/08/22 17:59 CT chest diagnostic wo con Urgent 11/09/22 17:48 CT angio chest PE protocol Urgent 11/11/22 10:23 CL Cath Imgs for PACS use only Routine Discharge Instructions Given to Patient (Per Discharging Provider) Please take all medications as instructed on discharge list below. Please follow-up with a primary care physician in 1 week to establish care and specifically to discuss weight management options including Ozempic. Please follow-up with [facility] Cardiology at the [facility] location in [place], [place]. They will contact you regarding this appointment time and date. It was a pleasure taking care of you! Please call if you have any questions or problems. You can reach a [facility] hospitalist on duty at [facility] 24 hours a day by calling [phone]. Take care of yourself. Stephanie Montgomery, DO [facility] Hospitalist Total Time Total Time Spent Total Time Spent (In Minutes): 60
[2022-11-11] MEDS ORDERED: LANTUS PER UNIT CHARGE SQ ONE (16:30)
[2022-11-12] MEDS ORDERED: INSULIN ASPART PER UNIT CHARGE SC SCH
[2022-11-12] MEDS ORDERED: lisinopril 5 MG TAB PO SCH (09:00)
[2022-11-12] MEDS ORDERED: CLOPIDOGREL BISULFATE 75 MG TAB PO SCH (09:00)
== END 2022-11-11 17:48 | disposition home or self-care (01) | DRG 281 ==
LOC: ED 14:43 → 2S 17:47 → SUATTDRO 17:47 → 2S 20:05

== ENCOUNTER 2022-12-26 08:23 | Inpatient (IN) ==
[2022-12-26] MEDS ORDERED: SODIUM CHLORIDE 0.9% 1,000 ML IV ONE ×2 (08:42→10:18)
[2022-12-26] MEDS ORDERED: ONDANSETRON INJ 2 MG/ML 2 ML VIAL IV STA (08:42)
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
[2022-12-26 10:02] LABS: Albumin Level 3.7 gm/dl (3.4-5.0); BUN Creatinine Ratio 17.9 (10-20); Bilirubin,Total 0.5 mg/dl (0.2-1.0); Calcium 8.9 mg/dl (8.6-10.3); Creatinine Clr Calc Pharmacy 141.1 ml/min; Est GFR (African American) 99.8 ml/min; Est GFR (Non-African American) 86.1 ml/min; Globulin 3.8 gm/dl (2.5-4.0); Magnesium 1.9 mg/dl (1.7-2.4); Potassium 3.9 mmol/L (3.5-5.1); Total Protein 7.5 gm/dl (6.0-8.3)
[2022-12-26 10:06] LABS: Basophils # (auto) 0.03 K/uL (0.00-0.20); Basophils % (auto) 0.2 %; Eosinophils # (auto) 0.08 K/uL (0.00-0.50); Eosinophils % (auto) 0.6 %; Hemoglobin 15.4 g/dl (14.0-18.0); Immature Granulocytes # (auto) 0.71 K/uL (0.01-0.20); Immature Granulocytes % (auto) 5.5 %; Lymphocytes % (auto) 26.4 %; Mean Corpuscular Hemoglobin 29.6 pg (25.0-34.0); Mean Corpuscular Hgb Conc 35.8 g/dL (32.0-36.0); Mean Corpuscular Volume 82.5 fL (80.0-100.0); Mean Platelet Volume 9.2 fL (9.4-12.4); Monocytes % (auto) 6.2 %; Neutrophils # (auto) 7.84 K/uL (1.40-6.50); Neutrophils % (auto) 61.1 %; Platelet Count 384 K/uL (130-400); RDW Coefficient of Variation 12.7 % (11.5-14.5); RDW Standard Deviation 37.9 fL (36.4-46.3); Red Blood Count 5.21 M/uL (4.70-6.10); White Blood Count 12.86 K/ul (4.8-10.8)
[2022-12-26] MEDS ORDERED: NovoLIN-R INSULIN PER UNIT CHARGE IV STA (10:18)
[2022-12-26 10:50] LABS: Base Excess VBG -14.9 mEq/L; HCO3 VBG 12 mmol/L; Oxygen Saturation VBG 61.1 %; PCO2 VBG 29 mmHg (38-50); PO2 VBG 35 mmHg; pH VBG 7.21 (7.36-7.41)
[2022-12-26] MEDS ORDERED: DKA GOAL RANGE 150-250 mg/dl ONE (10:59)
[2022-12-26] MEDS ORDERED: STAT IV Infusion **Titration per Protocol STA (10:59)
[2022-12-26] MEDS ORDERED: GLUCOSE 40% GEL 15 GM TUBE PO PRN (10:59)
[2022-12-26] MEDS ORDERED: DEXTROSE 50% 50 ML SYRINGE IV PRN (10:59)
[2022-12-26] MEDS ORDERED: INSULIN REGULAR 250 UNITS in SODIUM CHLORIDE 0.9% 247.5 ML IV SCH (11:00)
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
[2022-12-26] MEDS: D5W AND 1/2NSS + 20MEQ KCL 20 MEQ/1,000 ML BAG IV SCH ×2 (12:14→21:34)
[2022-12-26 14:01] LABS: C Reactive Protein 4.07 mg/dl (0-0.5)
[2022-12-26] MEDS ORDERED: ACETAMINOPHEN 325 MG TAB PO PRN (15:12)
[2022-12-26] MEDS ORDERED: PHARMACY GLYCEMIC MGMT CONSULT PRN (15:12)
[2022-12-26] MEDS ORDERED: CARBOHYDRATES FOR HYPOGLYCEMIA PO PRN (16:15)
[2022-12-26] MEDS ORDERED: GLUCOSE 10 TAB/TUBE PO PRN (16:15)
[2022-12-26] MEDS ORDERED: GLUCAGON FOR INJ 1 MG VIAL IM PRN (16:15)
[2022-12-26] MEDS: cefTRIAXone SODIUM 2,000 MG in DEXTROSE 5 % MINI-B 50 ML IV SCH (17:02)
[2022-12-26] MEDS: DAPTOmycin 450 MG in SYRINGE 0 ML IV SCH (17:02)
[2022-12-26 17:45] LABS: BUN Creatinine Ratio 18.8 (10-20); Calcium 7.9 mg/dl (8.6-10.3); Est GFR (African American) 127.7 ml/min; Est GFR (Non-African American) 110.2 ml/min; Potassium 3.6 mmol/L (3.5-5.1)
[2022-12-26 17:48] LABS: Magnesium 1.8 mg/dl (1.7-2.4); Phosphorus 1.2 mg/dl (2.5-4.9)
[2022-12-26] MEDS ORDERED: POTASSIUM PHOS 3 MMOL/1 ML INFUSION IV STA (17:50)
[2022-12-26] MEDS ORDERED: POTASSIUM PHOSPHATE 21 MMOL in SODIUM CHLORIDE 0.9% 500 ML IV ONE (18:15)
[2022-12-26] MEDS: ENOXAPARIN INJ 40 MG/0.4 ML SYR SQ SCH (18:57)
[2022-12-26 20:50] LABS: BUN Creatinine Ratio 17.1 (10-20); Calcium 8.3 mg/dl (8.6-10.3); Creatinine Clr Calc Pharmacy 182.4 ml/min; Est GFR (African American) 126.4 ml/min; Est GFR (Non-African American) 109.1 ml/min; Potassium 3.3 mmol/L (3.5-5.1)
[2022-12-26 21:01] LABS: Magnesium 1.7 mg/dl (1.7-2.4)
[2022-12-26] MEDS: METOPROLOL SUCC 50MG EXT REL TAB PO SCH (21:37)
[2022-12-26] MEDS ORDERED: Nursing to Pharmacy Communication SCH (22:30)
[2022-12-26] MEDS: lisinopril 5 MG TAB PO SCH (22:36)
[2022-12-26] MEDS ORDERED: MELATONIN 3 MG TAB PO PRN (23:31)
[2022-12-27 00:18] LABS: BUN Creatinine Ratio 18.1 (10-20); Calcium 7.9 mg/dl (8.6-10.3); Creatinine Clr Calc Pharmacy 207.8 ml/min; Est GFR (African American) 133.4 ml/min; Est GFR (Non-African American) 115.1 ml/min; Potassium 3.4 mmol/L (3.5-5.1)
[2022-12-27 00:27] LABS: Magnesium 1.7 mg/dl (1.7-2.4); Phosphorus 1.4 mg/dl (2.5-4.9)
[2022-12-27] MEDS ORDERED: POTASSIUM PHOS 3 MMOL/1 ML INFUSION IV STA (00:36)
[2022-12-27] MEDS ORDERED: SODIUM CHLOR 0.45% + 20MEQ KCL 20 MEQ/1,000 ML BAG IV SCH (01:00)
[2022-12-27] MEDS ORDERED: POTASSIUM PHOSPHATE 30 MMOL in SODIUM CHLORIDE 0.9% 500 ML IV ONE (01:00)
[2022-12-27] MEDS ORDERED: LANTUS PER UNIT CHARGE SC ONE (01:15)
[2022-12-27] MEDS ORDERED: INSULIN ASPART PER UNIT CHARGE SC SCH (02:00)
[2022-12-27] MEDS ORDERED: ONDANSETRON INJ 2 MG/ML 2 ML VIAL IV PRN (02:32)
[2022-12-27] MEDS ORDERED: PROCHLORPERAZINE 5 MG in SYRINGE 4 ML IV PRN (03:46)
[2022-12-27 03:57] LABS: Basophils % (auto) 0.9 %; Eosinophils # (auto) 0.08 K/uL (0.00-0.50); Eosinophils % (auto) 0.7 %; Hematocrit (blood only) 39.8 % (42.0-52.0); Hemoglobin 14.1 g/dl (14.0-18.0); Immature Granulocytes # (auto) 0.49 K/uL (0.01-0.20); Immature Granulocytes % (auto) 4.2 %; Lymphocytes # (auto) 4.08 K/uL (1.20-3.40); Lymphocytes % (auto) 34.7 %; Mean Corpuscular Hemoglobin 29.1 pg (25.0-34.0); Mean Corpuscular Hgb Conc 35.4 g/dL (32.0-36.0); Mean Corpuscular Volume 82.1 fL (80.0-100.0); Monocytes # (auto) 0.98 K/uL (0.11-0.59); Monocytes % (auto) 8.3 %; Neutrophils # (auto) 6.03 K/uL (1.40-6.50); Neutrophils % (auto) 51.2 %; Platelet Count 342 K/uL (130-400); RDW Coefficient of Variation 12.4 % (11.5-14.5); RDW Standard Deviation 37.3 fL (36.4-46.3); Red Blood Count 4.85 M/uL (4.70-6.10); White Blood Count 11.76 K/ul (4.8-10.8)
[2022-12-27 04:09] LABS: BUN Creatinine Ratio 15.9 (10-20); C Reactive Protein 2.25 mg/dl (0-0.5); Calcium 7.9 mg/dl (8.6-10.3); Creatinine Clr Calc Pharmacy 216.8 ml/min; Est GFR (African American) 135.7 ml/min; Est GFR (Non-African American) 117.1 ml/min; Potassium 3.6 mmol/L (3.5-5.1)
[2022-12-27] MEDS: ENOXAPARIN INJ 40 MG/0.4 ML SYR SQ SCH ×2 (05:04→15:19)
[2022-12-27] MEDS ORDERED: D5W AND 1/2NSS + 20MEQ KCL 20 MEQ/1,000 ML BAG IV SCH (06:00)
[2022-12-27] MEDS ORDERED: INSULIN HUMAN REGULAR IV BOLUS 4 UNITS in SYRINGE 0 ML IV ONE (06:00)
[2022-12-27] MEDS ORDERED: INSULIN REGULAR 250 UNITS in SODIUM CHLORIDE 0.9% 247.5 ML IV SCH (06:00)
[2022-12-27 08:49] LABS: BUN Creatinine Ratio 17.5 (10-20); Calcium 7.8 mg/dl (8.6-10.3); Creatinine Clr Calc Pharmacy 237.4 ml/min; Est GFR (African American) 140.9 ml/min; Est GFR (Non-African American) 121.5 ml/min; Magnesium 1.8 mg/dl (1.7-2.4); Phosphorus 1.8 mg/dl (2.5-4.9)
[2022-12-27] MEDS ORDERED: lisinopril 5 MG TAB PO SCH (09:00)
[2022-12-27] MEDS: INSULIN ASPART PER UNIT CHARGE SC SCH ×4 (09:09→21:37)
[2022-12-27] MEDS: LANTUS PER UNIT CHARGE SC SCH (09:11)
[2022-12-27] MEDS: METOPROLOL SUCC 50MG EXT REL TAB PO SCH ×2 (09:16→21:48)
[2022-12-27] MEDS: CLOPIDOGREL BISULFATE 75 MG TAB PO SCH (09:54)
[2022-12-27] MEDS: ASPIRIN 81 MG ECTAB PO SCH (09:54)
[2022-12-27] MEDS ORDERED: SODIUM PHOSPHATE 3 MMOL/1 ML 5 ML VIAL IV ONE ×2 (10:27→17:22)
[2022-12-27] MEDS ORDERED: SODIUM PHOSPHATE 20 MMOL in SODIUM CHLORIDE 0.9% 500 ML IV ONE ×2 (10:45→17:45)
[2022-12-27] MEDS ORDERED: EMPAGLIFLOZIN 10 MG TAB PO SCH (10:45)
--- NOTE | 2022-12-27 15:02 | Hospitalist Progress Note ---
Date of Service December 27, 2022 Assessment & Plan (1) DKA (diabetic ketoacidosis): Plan: Metabolic acidosis may be due to Jardiance side effect. Glucose was less than 300 on admission. I doubt if he had overt DKA. Insulin drip has been switched to insulin glargine nevertheless. Continue ADA diet. (2) Abscess: Plan: He is status post incision and drainage of left lower quadrant superficial abs cess. Currently on daptomycin. He was taking Bactrim and Keflex at home. No intervention necessary at this time (3) Leukocytosis: Plan: Most likely from abscess. Continue antibiotic therapy. Serial labs (4) Autism spectrum disorder: Plan: Supportive care (5) Meralgia paresthetica of right side: Plan: Supportive care. No acute change in management (6) NICM (nonischemic cardiomyopathy): Plan: Stable. Continue current medical management. Statin is on hold while on daptomycin. (7) DMII (diabetes mellitus, type 2): Plan: Diabetic diet. Insulin drip has been switched to insulin glargine. Continue sliding scale coverage for now (8) Cardiomyopathy: Plan: Nonischemic. Stable. Continue current medical manage (9) Hyperlipidemia: Plan: Stable. Continue current medical management Plan Hopeful discharge to home later today or tomorrow. Jardiance has been d iscontinued Admission and Anticipated Discharge Date Admission Date: December 26, 2022 Subjective Alert and oriented. No acute distress. Phosphorus replacement continues pare nterally. The patient may have metabolic acidosis from recent Jardiance prescription. No overt DKA in my opinion. He is now on insulin glargine however. He is anxious to go home Review of Systems Review of Systems: Constitutional-no fever or chills ENT-no blurred vision, no double vision, no epistaxis, no sore throat Respiratory-no cough, no wheezing, no shortness of breath Cardiac-no palpitations, no chest pain, no syncope GI-no nausea, vomiting, diarrhea, melena, hematochezia -no urinary retention, no urinary incontinence, no dysuria, no hematuria Musculoskeletal-no joint pain, no muscle tenderness Skin-no bruising, no rashes, no pruritus Neuro-no isolated weakness, no paresthesia, no weakness Psych-no depression, no anxiety Physical Exam Physical Exam: General-alert and oriented x3, no fevers, no chills. Morbidly obese HEENT-head atraumatic and normocephalic, , pupils equal and reactive to light, extraocular muscles intact Neck-no lymphadenopathy or thyromegaly, trachea midline Chest-clear to auscultation percussion. No rales wheezing or rhonchi Cardiac-regular rate and rhythm, normal S1 and S2, no murmurs Abdomen-normal bowel sounds, nontender, no hepatosplenomegaly. Bandage over I&D site left lower quadrant Extremities-no cyanosis, clubbing, or edema Neuro-cranial nerves II through XII intact, motor and sensory function within normal limits, strength symmetrical , no focal deficits Psych-normal affect, normal mood Results & Data Results & Data Vital Signs (Past 12 Hours) Vital Signs Temp Pulse Pulse Resp BP Pulse Ox O2 Del Method 12/27/22 11:12 36.6 C 73 18 126/78 97 Room Air 12/27/22 07:54 36.5 C 73 18 116/74 96 Room Air 12/27/22 05:59 71 Laboratory Results 12/27/22 03:38 12/27/22 08:07 PG Care Time/CCT Total # of Minutes Spent Total Time Spent with Patient: Total time spent is greater than 50% in coordination of care (as documented) at patient's floor/unit and/or counseling patient: Coding Level of Care Code 06091 SUB INP/OBS CARE 3/50MIN Diagnoses DKA (diabetic ketoacidosis) E11.10 Abscess L02.91 Leukocytosis D72.829 Autism spectrum disorder F84.0 Meralgia paresthetica of right side G57.11 NICM (nonischemic cardiomyopathy) I42.8 DMII (diabetes mellitus, type 2) E11.9 Cardiomyopathy I42.9 Hyperlipidemia E78.5
[2022-12-27] MEDS: DAPTOmycin 450 MG in SYRINGE 0 ML IV SCH (17:44)
[2022-12-27] MEDS: cefTRIAXone SODIUM 2,000 MG in DEXTROSE 5 % MINI-B 50 ML IV SCH (17:47)
[2022-12-27] MEDS ORDERED: Nursing to Pharmacy Communication SCH (21:30)
[2022-12-27] MEDS: lisinopril 5 MG TAB PO SCH (21:48)
[2022-12-28] MEDS: ENOXAPARIN INJ 40 MG/0.4 ML SYR SQ SCH (04:50)
[2022-12-28 06:38] LABS: Basophils # (auto) 0.06 K/uL (0.00-0.20); Basophils % (auto) 0.6 %; Eosinophils # (auto) 0.08 K/uL (0.00-0.50); Eosinophils % (auto) 0.8 %; Hematocrit (blood only) 39.3 % (42.0-52.0); Hemoglobin 13.8 g/dl (14.0-18.0); Immature Granulocytes # (auto) 0.23 K/uL (0.01-0.20); Immature Granulocytes % (auto) 2.4 %; Lymphocytes # (auto) 3.94 K/uL (1.20-3.40); Lymphocytes % (auto) 40.4 %; Mean Corpuscular Hemoglobin 28.8 pg (25.0-34.0); Mean Corpuscular Hgb Conc 35.1 g/dL (32.0-36.0); Mean Platelet Volume 9.2 fL (9.4-12.4); Monocytes # (auto) 0.77 K/uL (0.11-0.59); Monocytes % (auto) 7.9 %; Neutrophils # (auto) 4.68 K/uL (1.40-6.50); Neutrophils % (auto) 47.9 %; Platelet Count 272 K/uL (130-400); RDW Coefficient of Variation 12.5 % (11.5-14.5); RDW Standard Deviation 37.4 fL (36.4-46.3); Red Blood Count 4.79 M/uL (4.70-6.10); White Blood Count 9.76 K/ul (4.8-10.8)
[2022-12-28 06:53] LABS: BUN Creatinine Ratio 16.4 (10-20); Calcium 8.2 mg/dl (8.6-10.3); Creatinine Clr Calc Pharmacy 222.6 ml/min; Est GFR (African American) 132.6 ml/min; Est GFR (Non-African American) 114.4 ml/min; Potassium 3.3 mmol/L (3.5-5.1)
[2022-12-28] MEDS: METOPROLOL SUCC 50MG EXT REL TAB PO SCH (09:32)
[2022-12-28] MEDS: ASPIRIN 81 MG ECTAB PO SCH (09:42)
[2022-12-28] MEDS: CLOPIDOGREL BISULFATE 75 MG TAB PO SCH (09:42)
[2022-12-28] MEDS ORDERED: LANTUS PER UNIT CHARGE SQ ONE (10:01)
[2022-12-28] MEDS ORDERED: POTASSIUM CHLORIDE CRTAB 20 MEQ TABCR PO ONE (10:09)
[2022-12-28] MEDS: LANTUS PER UNIT CHARGE SC SCH (10:33)
[2022-12-28] MEDS ORDERED: POT PHOSPHATE MONOBASIC W/ SOD TAB PO ONE (11:01)
--- NOTE | 2022-12-28 12:19 | Discharge Summary ---
Date of Service December 28, 2022 Admission HPI Per Admitting Provider Brian is a 42-year-old male with a past medical history of nonischemic cardiomyopathy, NSTEMI, DM 2, right lateral femoral cutaneous nerve paresthesia, autism spectrum disorder who presents to the ER with fatigue. Patient was reportedly in DKA several days ago and as a result Jardiance was stopped but is continued to feel fatigued, weak, and more tired than normal. Also had a left lower quadrant abscess drained and has been on Bactrim/Keflex since then. He was seen in the ER 12/25/2022 and was prescribed 7 additional days of Bactrim. He had previously been seen 12/23/2022 for a left-sided groin abscess Patient was previously admitted by [facility] hospitalist service; however did establish with [facility] physician group with PCP appointment 11/27/2022 and will transition to [facility] hospitalist care on this admission Started Jardiance December 15. Shortly after developed worsened fatigue, weakness, decreased appetite, and feeling overall run down. Was seen on Friday was noted to have extremely low bicarb levels as was suspected to have DKA. He looked up Jardiance and saw a side effect was euglycemic DKA and stopped taking this evening of 12/23/22. "I just want you guys to put my blood back to how its supposed to be so I can go back to my life without being thi way permanently otherwise someone is getting sued because of the Jardiance.' Has had multiple abscesses before, but 'I've never had a problem like this from them before.' Came in for a LLQ abscess which seemed worse to him. 'Abscess is doing fine.' Seems improved but draining bloody/deep brown fluid. Does not think color was ever much of an issue, skin is still slightly pink but is not tender to the touch. Denies fever, chills, night sweats. Does feel generally rundown and fatigued Principal Diagnosis Alert and oriented. Vital signs are stable. He is ready for discharge to home. Phosphorus improved to 2.2. Will give additional oral phosphorus dose x1. Potassium slightly low at 3.3. Oral potassium ordered. Bicarb is improved to 20. Lantus uptitrated to 40 units daily. Discharge Exam General-alert and oriented x3, no fevers, no chills. Morbidly obese HEENT-head atraumatic and normocephalic, , pupils equal and reactive to light, extraocular muscles intact Neck-no lymphadenopathy or thyromegaly, trachea midline Chest-clear to auscultation percussion. No rales wheezing or rhonchi Cardiac-regular rate and rhythm, normal S1 and S2, no murmurs Abdomen-normal bowel sounds, nontender, no hepatosplenomegaly. Bandage over I&D site left lower quadrant Extremities-no cyanosis, clubbing, or edema Neuro-cranial nerves II through XII intact, motor and sensory function within normal limits, strength symmetrical , no focal deficits Psych-normal affect, normal mood Discharge Data Allergies Allergy/AdvReac Type Severity Reaction Status Date / Time bacitracin Allergy Mild Rash Verified 11/27/22 15:05 calamine Allergy Mild Rash Verified 11/27/22 15:05 zinc oxide Allergy Mild Rash Verified 11/27/22 15:05 Consultations 12/26/22 11:48 ED Decision to Admit Stat Hospital Course (1) DKA (diabetic ketoacidosis): Metabolic acidosis may be due to Jardiance side effect. Metabolic acidosis has nearly resolved now. Glucose was less than 300 on admission. I doubt if he had overt DKA. Insulin drip has been switched to insulin glargine nevertheless. Continue ADA diet. Insulin glargine uptitrated to 40 units daily (2) Abscess: He is status post incision and drainage of left lower quadrant superficial abscess. Currently on daptomycin and Rocephin. He will resume his oral Bactrim and Keflex at discharge. No intervention necessary at this time (3) Hypophosphatemia: Improved with parenteral replacement. (4) Leukocytosis: Most likely from abscess. Continue antibiotic therapy. Serial labs (5) Autism spectrum disorder: Supportive care (6) Meralgia paresthetica of right side: Supportive care. No acute change in management (7) NICM (nonischemic cardiomyopathy): Stable. Continue current medical management. Statin is on hold while on daptomycin. (8) DMII (diabetes mellitus, type 2): Diabetic diet. Insulin drip has been switched to insulin glargine. Continue sliding scale coverage for now. Insulin glargine uptitrated today, December 28 (9) Cardiomyopathy: Nonischemic. Stable. Continue current medical manage (10) Hyperlipidemia: Stable. Continue current medical management Plan Home today, December 28 Total Time Total Time Spent Total Time Spent (In Minutes): 45 minutes Discharge Plan Discharge Items Patient Disposition: Home - Self-Care Reason For Visit: EUGLYCEMIC DKA, ABSCESS Discharge Diagnosis: Metabolic acidosis possibly from Jardiance, hypophosphatemia, hypokalemia Activity: Resume your previous activity Non-emergency contact: Primary Care Provider Call non-emergency contact if: you have any medication questions and your symptoms worsen Follow-up/Referrals: Karlo Mora DO [Primary Care Provider] - Diet: Carb Consistent or DM2 Addtl Attending Provider Instructions: Use Lantus Solostar 40 units daily in the morning. Jardiance has been discontinued Pending Studies at Discharge: No Stand-Alone Forms: [employer], Smoking Cessation, Work/School Release Medications and DC Order Prescriptions: New insulin glargine [Lantus Solostar U-100 Insulin] 100 unit/mL (3 mL) insulin pen 40 unit subcut QAM Qty: 15 0RF Continued atorvastatin 40 mg tablet 40 mg PO QAM Qty: 90 3RF lisinopril [Zestril] 5 mg tablet 5 mg PO QAM Qty: 90 3RF metoprolol succinate 50 mg tablet extended release 24 hr 50 mg PO BID Qty: 180 3RF (DME) OneTouch Ultra Test Strip See Rx Instructions .ROUTE .MEDSUPPLY Qty: 100 11RF Rx Instructions: AC and HS and prn (DME) 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 meter [OneTouch Ultra2 Meter] Misc See Rx Instructions .ROUTE .MEDSUPPLY Qty: 1 0RF Rx Instructions: AC and HS and prn (DME) lancets 33 gauge misc See Rx Instructions .ROUTE .MEDSUPPLY Qty: 100 11RF Rx Instructions: AC and HS and prn acetaminophen [Tylenol] 325 mg Tablet 650 mg PO QID PRN (Reason: Pain) naproxen sodium 220 mg Tablet 440 mg PO BID PRN (Reason: Pain) ibuprofen 200 mg Tablet 400 mg PO Q6H PRN (Reason: Pain) clopidogrel 75 mg Tablet 75 mg PO QAM Qty: 30 0RF Rx Instructions: last filled in october per pharmacist aspirin 81 mg Tablet,Delayed Release (Dr/Ec) 81 mg PO QAM Qty: 90 0RF cephalexin 500 mg capsule 500 mg PO BID 10 Days Qty: 20 0RF sulfamethoxazole-trimethoprim [Bactrim DS] 800-160 mg tablet 1 tab PO BID 7 Days Qty: 14 0RF Discontinued Jardiance 10 mg tablet 10 mg PO DAILY Qty: 90 3RF Discharge Orders: Discharge Order (Routine); Ordered 12/28/22 Ordered By: Omid Gotti Admission Data Admit Date/Time: 12/26/22 12:27 Attending Provider: Omid Gotti Admit Provider: Norbert Gordon Primary Care Provider: Karlo Mora Other Providers: Norbert Gordon Coding Level of Care Code 18369 INP/OBS DISCH >30 MIN Diagnoses DKA (diabetic ketoacidosis) E11.10 Abscess L02.91 Hypophosphatemia E83.39 Leukocytosis D72.829 Autism spectrum disorder F84.0 Meralgia paresthetica of right side G57.11 NICM (nonischemic cardiomyopathy) I42.8 DMII (diabetes mellitus, type 2) E11.9 Cardiomyopathy I42.9 Hyperlipidemia E78.5
[2022-12-29] MEDS ORDERED: LANTUS PER UNIT CHARGE SC SCH (09:00)
== END 2022-12-28 13:35 | disposition home or self-care (01) | DRG 638 ==
LOC: ED 08:23 → SUATTDRO 12:27 → EDINP 12:27 → 4W 19:38

== ENCOUNTER 2024-12-01 16:50 | Inpatient (IN) ==
[2024-12-01 18:07] LABS: Hematocrit (blood only) 37.6 % (42.0-52.0); Hemoglobin 13.5 g/dl (14.0-18.0); Mean Corpuscular Hemoglobin 29.2 pg (25.0-34.0); Mean Corpuscular Volume 81.4 fL (80.0-100.0); Platelet Count 236 K/uL (130-400); RDW Standard Deviation 37.3 fL (36.4-46.3); Red Blood Count 4.62 M/uL (4.70-6.10); White Blood Count 15.53 K/ul (4.8-10.8)
[2024-12-01 18:16] LABS: INR 1.1 (0.9-1.1); Partial Thromboplastin Time 33 Seconds (21-31); Prothrombin Time 11.5 Seconds (9.0-12.0)
[2024-12-01 18:22] LABS: Albumin Level 3.2 gm/dl (3.4-5.0); Anion Gap 11.0 (3-11); Bilirubin,Total 0.7 mg/dl (0.2-1.0); Calcium 9.4 mg/dl (8.6-10.3); Carbon Dioxide 19.0 mmol/L (21-32); Chloride 101.0 mmol/L (98-107); Magnesium 1.3 mg/dl (1.7-2.4); Potassium 4.1 mmol/L (3.5-5.1); Sodium 131.0 mmol/L (136-145)
[2024-12-01 18:28] LABS: Alanine Aminotransferase 35.0 U/L (7-52); Albumin Globulin Ratio 0.8 (0.9-2); Alkaline Phosphatase 74.0 U/L (34-104); Blood Urea Nitrogen 26.0 mg/dl (6-23); Creatinine Clr Calc Pharmacy 122.7 ml/min; Globulin 3.8 gm/dl (2.5-4.0); Glucose 274.0 mg/dl (70-99(Fasting)); Total Protein 7.0 gm/dl (6.0-8.3)
[2024-12-01] MEDS ORDERED: VANCOMYCIN CONSULT ACTIVE PRN (18:29)
[2024-12-01 18:34] LABS: Dohle Bodies 1+; Immature Granulocytes # (auto) 0.51 K/uL (0.01-0.20); Immature Granulocytes % (auto) 3.3 %; Toxic Vacuolation 1+
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
[2024-12-01] MEDS: cefTRIAXone SODIUM 2,000 MG/50 ML BAG IV STA (18:40)
[2024-12-01] MEDS: MoRPHine SULFATE 10 MG/ML CARP/VIAL IV STA (18:54)
[2024-12-01] MEDS: ACETAMINOPHEN 1,000 MG/100 ML VIAL IV STA (19:15)
[2024-12-01] MEDS: MAGNESIUM SULFATE / D5W 1 GM/100 ML BAG IV SCH ×2 (19:15→21:25)
--- NOTE | 2024-12-01 19:40 | XRay Report ---
Clinical History: Injury 4 views of the left lower leg are submitted for review. Findings: No definite acute fracture is identified. There is a small bone fragment inferior to the medial malleolus that may be due to old injury. No subluxation or dislocation is seen. No arthritic changes are noted. There is a dorsal calcaneal spur. No other osseous abnormality is identified. There are no radiopaque foreign bodies. Impression: 1. Suspected old injury of the medial malleolus 2. Calcaneal spur Electronically signed by Logan Damon 12-01-2024 7:40 PM
[2024-12-01] MEDS: VANCOMYCIN HCL 2,750 MG in SODIUM CHLORIDE 0.9% 500 ML IV ONE (19:44)
[2024-12-01] MEDS: SODIUM CHLORIDE 0.9% 500 ML IV SCH (19:52)
--- NOTE | 2024-12-01 20:14 | XRay Report ---
INDICATION: Pain TECHNIQUE: 2 views of the left femur were obtained. COMPARISON: None FINDINGS: No displaced acute osseous process is identified. Diffuse soft tissue swelling. No suspicious marrow changes are detected in these radiographs. IMPRESSION: No displaced acute osseous process is identified. Diffuse soft tissue swelling. No suspicious marrow changes are detected in these radiographs. Electronically signed by Beny Ibarra 12-01-2024 8:14 PM
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
[2024-12-01] MEDS ORDERED: ONDANSETRON INJ 2 MG/ML 2 ML VIAL IV PRN (20:39)
[2024-12-01] MEDS ORDERED: ACETAMINOPHEN 325 MG TAB PO PRN (20:39)
[2024-12-01] MEDS ORDERED: MELATONIN 3 MG TAB PO PRN (20:39)
[2024-12-01] MEDS ORDERED: POLYETHYLENE (MIRALAX) 17 GM PACK PO PRN (20:39)
[2024-12-01] MEDS ORDERED: MoRPHine SULFATE 2 MG/ML CARP IV PRN (20:46)
[2024-12-01] MEDS ORDERED: DEXTROSE 50% 50 ML SYRINGE IV PRN (20:59)
[2024-12-01] MEDS ORDERED: GLUCOSE 40% GEL 15 GM TUBE PO PRN (20:59)
[2024-12-01] MEDS ORDERED: GLUCOSE 10 TAB/TUBE PO PRN (20:59)
[2024-12-01] MEDS ORDERED: CARBOHYDRATES FOR HYPOGLYCEMIA PO PRN (20:59)
[2024-12-01] MEDS ORDERED: GLUCAGON FOR INJ 1 MG VIAL SQ PRN (20:59)
[2024-12-01] MEDS: LACTATED RINGER'S 1,000 ML IV SCH (21:55)
[2024-12-01] MEDS: INSULIN ASPART PER UNIT CHARGE SC SCH (22:49)
[2024-12-01] MEDS: LANTUS PER UNIT CHARGE SQ SCH (22:50)
[2024-12-01] MEDS: ENOXAPARIN INJ 40 MG/0.4 ML SYR SQ SCH (22:52)
[2024-12-01] MEDS: METOPROLOL SUCC 50MG EXT REL TAB PO SCH (22:52)
[2024-12-01] MEDS: DAPTOmycin 850 MG in SYRINGE 0 ML IV SCH (23:11)
[2024-12-01] MEDS: MoRPHine SULFATE 2 MG/ML CARP IV PRN (23:23)
[2024-12-02 06:56] LABS: Hematocrit (blood only) 34.8 % (42.0-52.0); Hemoglobin 11.8 g/dl (14.0-18.0); Mean Corpuscular Hemoglobin 27.6 pg (25.0-34.0); Mean Corpuscular Volume 81.5 fL (80.0-100.0); Platelet Count 211 K/uL (130-400); RDW Standard Deviation 38.2 fL (36.4-46.3); Red Blood Count 4.27 M/uL (4.70-6.10); White Blood Count 13.21 K/ul (4.8-10.8)
[2024-12-02 07:13] LABS: Anion Gap 9.0 (3-11); Blood Urea Nitrogen 29.0 mg/dl (6-23); Calcium 8.5 mg/dl (8.6-10.3); Carbon Dioxide 20.0 mmol/L (21-32); Chloride 102.0 mmol/L (98-107); Creatinine Clr Calc Pharmacy 111.0 ml/min; Glucose 178.0 mg/dl (70-99(Fasting)); Magnesium 1.8 mg/dl (1.7-2.4); Potassium 3.7 mmol/L (3.5-5.1); Sodium 131.0 mmol/L (136-145)
[2024-12-02] MEDS: ASPIRIN 81 MG ECTAB PO SCH (08:27)
[2024-12-02] MEDS: CEFEPIME 2000MG 2,000 MG/20 ML SYR IV SCH (08:27)
[2024-12-02 08:55] LABS: Hemoglobin A1C 9.7 % (4.5-5.6)
[2024-12-02] MEDS ORDERED: ATORVASTATIN 40 MG TAB PO SCH (09:00)
[2024-12-02] MEDS ORDERED: [UNRECOGNIZED DRUG - OTHER] PO SCH (09:00)
--- NOTE | 2024-12-02 09:37 | Hospitalist Progress Note ---
Date of Service December 02, 2024 Assessment & Plan (1) Cellulitis of left leg: Plan: -on cefepime/daptomycin -XR Tib/Fib and femur (L) without acute findings, only soft tissue swelling -pain control -ID consulted (2) Hyponatremia: Plan: Likely appears decreased in setting of hyperglycemia. (3) Hypomagnesemia: Plan: -resolved -received magnesium sulfate (4) DMII (diabetes mellitus, type 2): Plan: -SSI with target BSG range 110-150mg/dL, CF 10, carb ratio 5 - Lantus 33U BID - BSG ACHS (5) HTN (hypertension): Plan: -lisinopril -metoprolol Plan 44-year-old male PMHx T2DM, NICM, CAD, autism, and HLD presenting for L knee pain. His evaluation is consistent with presence of infection supported by leukocytosis 15.53, lactate of 2.7 with 2.2 on repeat, and procalcitonin of 10.4. H&H is slightly decreased, with an elevated ESR of 82. Sodium slightly decreased at 131 in setting of hyperglycemia at 274. Magnesium 1.3. Imaging of LLE without acute findings at present, only noting diffuse soft tissue swelling. Patient has remained tachycardic and did have 1 hypotensive reading of 82/66, however his remaining blood pressures have been in the 120s to 140s over 80s. Admission for cellulitis, monitor for worsening infection Admission and Anticipated Discharge Date Admission Date: December 01, 2024 Subjective No events overnight. Pt still feeling pain in left leg. Review of Systems Review of Systems: CONST: Negative for fever, body aches and chills. HENT: Negative for neck pain/stiffness, headache, congestion, sore throat, swelling. EYES: Negative for discharge/pain or vision changes. RESP: Negative for cough/hemoptysis and shortness of breath. CV: Negative chest pain, difficulty breathing, palpitations. ABD: Negative pain, nausea, vomiting. : Negative increase frequency, dysuria, blood in urine or stool. MUSC: Negative for muscle aches, edema. SKIN: Negative rash, lesions/sores. NEURO: Negative headache, dizziness, weakness. Physical Exam Physical Exam: GENERAL APPEARANCE NAD, activity normal for age, well developed/ well nourished, no cyanosis, pallor, or diaphoresis. EYES lids/conjunctiva normal. EARS/NOSE/THROAT Mucous membranes moist, nares normal, lips/teeth normal uvula midline without oral pharyngeal erythema, exudate or swelling TMs normal bilaterally. No lymphangitis/lymphedema. HEAD/NECK normocephalic atraumatic, no facial trauma, neck is supple. RESPIRATORY respiratory effort normal, speaks in full sentences, no tripod position, no accessory muscle use. Lungs clear to auscultation without rhonchi, wheezes, rales CARDIAC Regular rate and rhythm, no edema. ABDOMINAL Soft, ND/NT. No evidence of fluid wave. No pulsatile masses on exam, rebound tenderness, Eduardo sign or pain over Mcburney's point. MUSCLES/EXTREMITIES No abnormal range of motion, no swelling. SKIN : left leg with erythema mid thigh, knee, progressing down calve. NEUROLOGICAL Speech is clear and appropriate. Normal level of consciousness. Gait and coordination are normal. 5/5 strength in all extremities. PSYCH Normal mood and affect. Judgement/competence is appropriate Results & Data Results & Data Vital Signs (Past 12 Hours) Vital Signs Temp Pulse Pulse Resp BP BP Pulse Ox 12/02/24 08:05 36.7 C 119 H 18 104/72 96 12/02/24 02:51 36.8 C 108 H 18 122/71 97 12/01/24 22:35 112 H 12/01/24 22:25 36.7 C 112 H 18 96/60 L 97 12/01/24 21:50 107 H 20 98/64 L 96 O2 Del Method 12/02/24 08:05 Room Air 12/02/24 02:51 Room Air 12/01/24 22:35 12/01/24 22:25 Room Air 12/01/24 21:50 Room Air PG Care Time/CCT Total # of Minutes Spent Total Time Spent with Patient: Total time spent is greater than 50% in coordination of care (as documented) at patient's floor/unit and/or counseling patient: Coding Level of Care Code 47630 SUB INP/OBS CARE MIN Diagnoses Cellulitis of left leg L03.116 Hyponatremia E87.1 Hypomagnesemia E83.42 DMII (diabetes mellitus, type 2) E11.9 HTN (hypertension) I10
[2024-12-02] MEDS: MoRPHine SULFATE 4 MG/ML 1 ML CARP\\VIAL IV PRN (10:55)
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
[2024-12-02 18:35] LABS: Appearance Urine Turbid (Clear); Bacteria Urine Automated None Seen (None Seen); Cast Urine Automated >20 /lpf (0-2); Glucose Urine UA Negative (Negative); RBC Urine Automated 0-2 /hpf (0-2); WBC Urine Automated 0-5 /hpf (0-5)
[2024-12-03 06:28] LABS: Hematocrit (blood only) 33.9 % (42.0-52.0); Hemoglobin 11.5 g/dl (14.0-18.0); Mean Corpuscular Hemoglobin 28.8 pg (25.0-34.0); Mean Corpuscular Volume 84.8 fL (80.0-100.0); Platelet Count 192 K/uL (130-400); RDW Standard Deviation 39.5 fL (36.4-46.3); Red Blood Count 4.00 M/uL (4.70-6.10); White Blood Count 13.27 K/ul (4.8-10.8)
[2024-12-03 07:04] LABS: Anion Gap 10.0 (3-11); Calcium 8.3 mg/dl (8.6-10.3); Carbon Dioxide 18.0 mmol/L (21-32); Chloride 103.0 mmol/L (98-107); Potassium 3.9 mmol/L (3.5-5.1); Sodium 131.0 mmol/L (136-145)
[2024-12-03 07:10] LABS: Blood Urea Nitrogen 30.0 mg/dl (6-23); Creatinine Clr Calc Pharmacy 133.3 ml/min; Glucose 133.0 mg/dl (70-99(Fasting))
--- NOTE | 2024-12-03 09:39 | Hospitalist Progress Note ---
Date of Service December 03, 2024 Assessment & Plan (1) Cellulitis of left leg: Plan: -on ancef Q8hrs -XR Tib/Fib and femur (L) without acute findings, only soft tissue swelling -pain control -ID consult appreciated (2) Hyponatremia: Plan: Likely appears decreased in setting of hyperglycemia. (3) Hypomagnesemia: Plan: -resolved -received magnesium sulfate (4) DMII (diabetes mellitus, type 2): Plan: -SSI with target BSG range 110-150mg/dL, CF 10, carb ratio 5 - Lantus 33U BID - BSG ACHS (5) HTN (hypertension): Plan: -lisinopril -metoprolol Plan 44-year-old male PMHx T2DM, NICM, CAD, autism, and HLD presenting for L knee pain. His evaluation is consistent with presence of infection supported by leukocytosis 15.53, lactate of 2.7 with 2.2 on repeat, and procalcitonin of 10.4. H&H is slightly decreased, with an elevated ESR of 82. Sodium slightly decreased at 131 in setting of hyperglycemia at 274. Magnesium 1.3. Imaging of LLE without acute findings at present, only noting diffuse soft tissue swelling. Patient has remained tachycardic and did have 1 hypotensive reading of 82/66, however his remaining blood pressures have been in the 120s to 140s over 80s. Admission for cellulitis, monitor for worsening infection Admission and Anticipated Discharge Date Admission Date: December 01, 2024 Subjective No events overnight. Pt resting in bed. He is complaining of bed being uncomfortable. Review of Systems Review of Systems: CONST: Negative for fever, body aches and chills. HENT: Negative for neck pain/stiffness, headache, congestion, sore throat, swelling. EYES: Negative for discharge/pain or vision changes. RESP: Negative for cough/hemoptysis and shortness of breath. CV: Negative chest pain, difficulty breathing, palpitations. ABD: Negative pain, nausea, vomiting. : Negative increase frequency, dysuria, blood in urine or stool. MUSC: Negative for muscle aches, edema. SKIN: Negative rash, lesions/sores. NEURO: Negative headache, dizziness, weakness. Physical Exam Physical Exam: GENERAL APPEARANCE NAD, activity normal for age, well developed/ well nourished, no cyanosis, pallor, or diaphoresis. EYES lids/conjunctiva normal. EARS/NOSE/THROAT Mucous membranes moist, nares normal, lips/teeth normal uvula midline without oral pharyngeal erythema, exudate or swelling TMs normal bilaterally. No lymphangitis/lymphedema. HEAD/NECK normocephalic atraumatic, no facial trauma, neck is supple. RESPIRATORY respiratory effort normal, speaks in full sentences, no tripod position, no accessory muscle use. Lungs clear to auscultation without rhonchi, wheezes, rales CARDIAC Regular rate and rhythm, no edema. ABDOMINAL Soft, ND/NT. No evidence of fluid wave. No pulsatile masses on exam, rebound tenderness, Eduardo sign or pain over Mcburney's point. MUSCLES/EXTREMITIES No abnormal range of motion, no swelling. SKIN : left leg with erythema mid thigh, knee, progressing down calve. NEUROLOGICAL Speech is clear and appropriate. Normal level of consciousness. Gait and coordination are normal. 5/5 strength in all extremities. PSYCH Normal mood and affect. Judgement/competence is appropriate Results & Data Results & Data Vital Signs (Past 12 Hours) Vital Signs Temp Pulse Resp BP Pulse Ox O2 Del Method 12/03/24 07:38 36.9 C 95 H 18 119/77 96 Room Air 12/03/24 02:33 36.7 C 90 20 120/72 96 Room Air 12/02/24 23:43 36.8 C 97 H 20 120/76 97 Room Air PG Care Time/CCT Total # of Minutes Spent Total Time Spent with Patient: Total time spent is greater than 50% in coordination of care (as documented) at patient's floor/unit and/or counseling patient: Coding Level of Care Code 10443 SUB INP/OBS CARE 2/35MIN Diagnoses Cellulitis of left leg L03.116 Hyponatremia E87.1 Hypomagnesemia E83.42 DMII (diabetes mellitus, type 2) E11.9 Primary hypertension I10 Hypertension type: primary hypertension (5) HTN (hypertension) Hypertension type: primary hypertension Qualified Code(s): I10 - Essential (primary) hypertension
--- NOTE | 2024-12-03 14:44 | Infectious Disease Progress Nt ---
Date of Service December 03, 2024 Assessment & Plan (1) Lymphedema of left lower extremity: (2) Leukocytosis: (3) Cellulitis of left leg: (4) Uncontrolled diabetes mellitus: Plan This is a 44 year-old male with a past medical history of DM2, autism,nonischemic cardiomyopathy who presents to the ED with left knee pain. He initially felt muscle aches and chills a few days prior to admission. The left knee then started to hurt with increasing warmth and erythema in the left lower extremity. Denied any trauma to the leg. In the past he had a wound on the bottom of the left great toe which has since healed. Per ER documentation, he had 2+ left lower extremity edema, erythema , warmth and tenderness of the left lower extremity from thigh to the foot. The tenderness was mostly in the thigh and proximal lower leg. On admission, he was afebrile ,tachycardic, BP 121/81. He had an episode of hypotension with a Bp 82/66. Labs: 15.53---> 13.21, ESR 82, CRP 41.64, procalcitonin 10.40, BUN 26, creatinine 1.37, lactate 2.2--> 1.2, hemoglobin A1c 9.7. MRSA screen negative. Blood culture NGTD. Urinalysis without pyuria. Femur x-ray shows no displaced acute osseous process. No suspicious marrow changes. Diffuse soft tissue swelling. Tibia-fibula x-ray shows suspected old injury of the medial malleolus and calcaneal spur.. He was started on cefepime and daptomycin. ID consulted for cellulitis. An E consult without video evaluation completed as video/camera is not working today Microbiology 12/01 blood culture NGTD 12/01 MRSA screen negative Antibiotics Vancomycin 12/01 Rocephin 12/01 Cefepime 12/02 Daptomycin 12/02 Cefazolin 12/02-current # Left lower extremity cellulitis, acute # Poorly controlled DM2 # Elevated inflammatory markers and procalcitonin Discussion He presents with acute onset of left lower extremity cellulitis. No known trauma. No known open wounds or abscesses. No documentation of purulent drainage which would be concerning for MRSA. No history of MRSA infections or other MDRO's. Imaging shows soft tissue swelling. No rain evidence of osteomyelitis. Given the above would focus coverage on skin and soft tissue casey such as strep and MSSA. He remains afebrile and hemodynamically stable. Leukocytosis improving.Discontinued cefepime an daptomycin Recommendations Check LLE doppler Continue cefazolin 2 g IV every 8 hours Follow-up blood culture Monitor for continued clinical improvement on therapy and adjust antibiotics if needed. If continued clinical improvement, anticipate a total of 7 days of cephalexin 500 mg po q 6hrs ( 12/01-12/08) If worsening, would pursue CT LLE Elevate left lower extremity to help with erythema and edema. Monitor WBC ID will sign off. Ed Can MD, MPH Infectious Disease [facility], ID Division Call [phone] with questions . Admission and Anticipated Discharge Date Admission Date: December 01, 2024 Subjective This patient recommendation is based on a telemedicine consult request which was completed asynchronously through chart review and information provided by the primary physician. The patient was not seen or examined today. The evaluation is consultative in nature and all patient care and treatment decisions can either be accepted or rejected by the patient's primary hospital-based treating p marilu using their own independent medical judgment for their patient. Time Spent Reviewing Chart: 21 - 30 minutes Has regression of erythema in LA per s/w hospialist Afebrile WBC 13.7 Results & Data Vital Signs (Past 12 Hours) Vital Signs Temp Pulse Pulse Resp BP Pulse Ox O2 Del Method 12/03/24 11:23 37.4 C 91 H 18 111/70 93 Room Air 12/03/24 08:00 90 12/03/24 07:38 36.9 C 95 H 18 119/77 96 Room Air Laboratory Results 12/01/24 17:49 Aerobic Blood Culture - Preliminary Blood No growth in Aerobic bottle after 24 hours. Anaerobic Blood Culture - Preliminary No growth in Anaerobic bottle after 24 hours. 12/01/24 Unknown Aerobic Blood Culture - Preliminary Blood No growth in Aerobic bottle after 24 hours. Anaerobic Blood Culture - Preliminary No growth in Anaerobic bottle after 24 hours. 12/03/24 12/03/24 12/03/24 11:26 07:40 05:31 WBC 13.27 H RBC 4.00 L Hgb 11.5 L Hct 33.9 L MCV 84.8 MCH 28.8 MCHC 33.9 RDW Std Deviation 39.5 RDW Coeff of Sujey 12.7 Plt Count 192 MPV 11.2 Sodium 131 L Potassium 3.9 Chloride 103 Carbon Dioxide 18 L Anion Gap 10 BUN 30 H Creatinine 1.30 Est Cr Clr Drug Dosing 133.3 eGFR 69.47 BUN/Creatinine Ratio 23.1 H Glucose 133 H POC Glucose 147 H 119 H Calcium 8.3 L Urine Color Urine Appearance Urine pH Ur Specific [place] Urine Protein Urine Glucose (UA) Urine Ketones Urine Blood Urine Nitrite Urine Bilirubin Urine Urobilinogen Ur Leukocyte Esterase Urine WBC (Auto) Urine RBC (Auto) U Hyaline Cast (Auto) U Epithel Cells (Auto) Urine Bacteria (Auto) Amorphous Sediment Granular Casts Urine Osmolality Ur Random Sodium Urine Comment 12/02/24 12/02/24 12/02/24 21:30 20:14 17:40 WBC RBC Hgb Hct MCV MCH MCHC RDW Std Deviation RDW Coeff of Sujey Plt Count MPV Sodium Potassium Chloride Carbon Dioxide Anion Gap BUN Creatinine Est Cr Clr Drug Dosing eGFR BUN/Creatinine Ratio Glucose POC Glucose 158 H 104 H Calcium Urine Color Dark Yellow Urine Appearance Turbid A Urine pH 5.5 Ur Specific [place] 1.023 Urine Protein 2+ H Urine Glucose (UA) Negative Urine Ketones Trace H Urine Blood Negative Urine Nitrite Negative Urine Bilirubin Negative Urine Urobilinogen Negative Ur Leukocyte Esterase Negative Urine WBC (Auto) 0-5 Urine RBC (Auto) 0-2 U Hyaline Cast (Auto) >20 H U Epithel Cells (Auto) 6-10 H Urine Bacteria (Auto) None Seen Amorphous Sediment Present A Granular Casts Present A Urine Osmolality 550 Ur Random Sodium 31 Urine Comment 12/02/24 16:39 WBC RBC Hgb Hct MCV MCH MCHC RDW Std Deviation RDW Coeff of Sujey Plt Count MPV Sodium Potassium Chloride Carbon Dioxide Anion Gap BUN Creatinine Est Cr Clr Drug Dosing eGFR BUN/Creatinine Ratio Glucose POC Glucose 143 H Calcium Urine Color Urine Appearance Urine pH Ur Specific [place] Urine Protein Urine Glucose (UA) Urine Ketones Urine Blood Urine Nitrite Urine Bilirubin Urine Urobilinogen Ur Leukocyte Esterase Urine WBC (Auto) Urine RBC (Auto) U Hyaline Cast (Auto) U Epithel Cells (Auto) Urine Bacteria (Auto) Amorphous Sediment Granular Casts Urine Osmolality Ur Random Sodium Urine Comment Diagnostic Findings Femur X-Ray 12/01/24 18:31 INDICATION: Pain TECHNIQUE: 2 views of the left femur were obtained. COMPARISON: None FINDINGS: No displaced acute osseous process is identified. Diffuse soft tissue swelling. No suspicious marrow changes are detected in these radiographs. IMPRESSION: No displaced acute osseous process is identified. Diffuse soft tissue swelling. No suspicious marrow changes are detected in these radiographs. Electronically signed by Beny Ibarra 12-01-2024 8:14 PM Tibia/Fibula X-Ray 12/01/24 18:31 Clinical History: Injury 4 views of the left lower leg are submitted for review. Findings: No definite acute fracture is identified. There is a small bone fragment inferior to the medial malleolus that may be due to old injury. No subluxation or dislocation is seen. No arthritic changes are noted. There is a dorsal calcaneal spur. No other osseous abnormality is identified. There are no radiopaque foreign bodies. Impression: 1. Suspected old injury of the medial malleolus 2. Calcaneal spur Electronically signed by Logan Damon 12-01-2024 7:40 PM Medications Administered Home Medications Medication Instructions Recorded Confirmed Last Taken acetaminophen 325 mg tablet 650 mg PO QID PRN Pain 11/26/20 12/01/24 3 Days Ago (Tylenol) ~11/05/22 ibuprofen 200 mg tablet 400 mg PO Q6H PRN Pain 11/26/20 12/01/24 3 Days Ago ~11/05/22 naproxen sodium 220 mg tablet 440 mg PO BID PRN Pain 11/26/20 12/01/24 3 Days Ago ~11/05/22 aspirin 81 mg tablet,delayed 81 mg PO QAM #90 tabs 11/11/22 12/01/24 Unknown release 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,color receiver,cont #1 ea 09/11/23 12/01/24 Unknown (FreeStyle Yulia 3 [place]) insulin glargine 100 unit/mL (3 40 - 50 unit (0.4 - 0.5 mL) subcut 09/11/23 12/01/24 Unknown mL) subcutaneous pen (Lantus BID 90 days #60 mL Solostar U-100 Insulin) lisinopril 20 mg tablet 20 mg PO DAILY #90 tabs 12/12/23 12/01/24 Unknown atorvastatin 40 mg tablet 40 mg PO QAM #90 tabs 01/23/24 12/01/24 Unknown metoprolol succinate 50 mg 50 mg PO BID #180 tabs 01/23/24 12/01/24 Unknown tablet,extended release 24 hr potassium phosphate, monobasic 500 500 mg PO DAILY #90 tabs 01/23/24 12/01/24 Unknown mg soluble tablet (K-Phos Original) 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 sensor (FreeStyle #2 ea 11/17/24 12/01/24 Unknown Yulia 3 Plus Sensor device) glimepiride 4 mg tablet 4 mg PO BID #180 tabs 11/17/24 12/01/24 Unknown tirzepatide 7.5 mg/0.5 mL 7.5 mg (0.5 mL) subcut .weekly #6 11/17/24 12/01/24 Unknown subcutaneous pen injector mL Active Medications Generic Name Dose Route Start Last Admin Trade Name Freq PRN Reason Stop Dose Admin Aspirin 81 mg 12/02/24 09:00 12/03/24 08:32 Aspirin 81 Mg Ectab PO 01/01/25 08:59 81 mg QAM VENKATESH Administration Enoxaparin Sodium 40 mg 12/01/24 21:30 12/02/24 21:25 Enoxaparin Inj 40 Mg/0.4 Ml Syr SQ 12/31/24 21:29 40 mg HS VENKATESH Administration Lactated Ringer's 1,000 mls @ 80 mls/hr 12/01/24 21:15 12/03/24 11:18 Lr IV 12/04/24 21:14 80 mls/hr .[id number] VENKATESH Administration Cefazolin Sodium 2,000 mg in 15 mls @ 3.75 mls/min 12/02/24 22:00 12/03/24 13:18 Ancef 2000mg IV 12/09/24 21:59 3.75 mls/min Q8H VENKATESH Administration Insulin Aspart 0 units 12/01/24 21:00 12/03/24 13:00 Insulin Aspart Per Unit Charge SC 12/31/24 20:59 13 units ACHS VENKATESH Administration Insulin Glargine 33 units 12/01/24 21:00 12/03/24 08:31 Lantus Per Unit Charge SQ 12/31/24 20:59 33 units BID VENKATESH Administration Lisinopril 20 mg 12/02/24 09:00 12/03/24 08:31 Lisinopril 20 Mg Tab PO 01/01/25 08:59 20 mg DAILY VENKATESH Administration Metoprolol Succinate 50 mg 12/01/24 21:00 12/03/24 08:32 Metoprolol Succ 50mg Ext Rel Tab PO 12/31/24 20:59 50 mg BID VENKATESH Administration Morphine Sulfate 4 mg 12/02/24 09:40 12/02/24 22:27 Morphine Sulfate 4 Mg/Ml 1 Ml Carp\Vial IV 12/16/24 09:39 4 mg Q3H PRN Administration Pain (6,7,8,9,10) (2) Leukocytosis Leukocytosis type: bandemia Qualified Code(s): D72.825 - Bandemia
[2024-12-04 06:18] LABS: Hematocrit (blood only) 34.4 % (42.0-52.0); Hemoglobin 11.4 g/dl (14.0-18.0); Mean Corpuscular Hemoglobin 27.4 pg (25.0-34.0); Mean Corpuscular Volume 82.7 fL (80.0-100.0); Platelet Count 250 K/uL (130-400); RDW Standard Deviation 39.0 fL (36.4-46.3); Red Blood Count 4.16 M/uL (4.70-6.10); White Blood Count 10.39 K/ul (4.8-10.8)
[2024-12-04 06:38] LABS: Anion Gap 8.0 (3-11); Blood Urea Nitrogen 24.0 mg/dl (6-23); Calcium 8.7 mg/dl (8.6-10.3); Carbon Dioxide 21.0 mmol/L (21-32); Chloride 105.0 mmol/L (98-107); Creatinine Clr Calc Pharmacy 164.5 ml/min; Glucose 183.0 mg/dl (70-99(Fasting)); Potassium 3.8 mmol/L (3.5-5.1); Sodium 134.0 mmol/L (136-145)
[2024-12-04] MEDS ORDERED: VANCOMYCIN CONSULT ACTIVE PRN (09:41)
[2024-12-04] MEDS ORDERED: VANCOMYCIN HCL / NSS 1,000 MG/270 ML BAG IV SCH (09:45)
--- NOTE | 2024-12-04 09:47 | Hospitalist Progress Note ---
Date of Service December 04, 2024 Assessment & Plan (1) Cellulitis of left leg: Plan: -on ancef Q8hrs, changed to vancomycin due to worsening cellulitis -XR Tib/Fib and femur (L) without acute findings, only soft tissue swelling -pain control -ID consult appreciated -LE Knee CT ordered -Left leg US to r/o DVT -woud care consulted (2) Hyponatremia: Plan: Likely appears decreased in setting of hyperglycemia. (3) Hypomagnesemia: Plan: -resolved -received magnesium sulfate (4) DMII (diabetes mellitus, type 2): Plan: -SSI with target BSG range 110-150mg/dL, CF 10, carb ratio 5 - Lantus 33U BID - BSG ACHS (5) HTN (hypertension): Plan: -lisinopril -metoprolol Plan 44-year-old male PMHx T2DM, NICM, CAD, autism, and HLD presenting for L knee pain. His evaluation is consistent with presence of infection supported by leukocytosis 15.53, lactate of 2.7 with 2.2 on repeat, and procalcitonin of 10.4. H&H is slightly decreased, with an elevated ESR of 82. Sodium slightly decreased at 131 in setting of hyperglycemia at 274. Magnesium 1.3. Imaging of LLE without acute findings at present, only noting diffuse soft tissue swelling. Patient has remained tachycardic and did have 1 hypotensive reading of 82/66, however his remaining blood pressures have been in the 120s to 140s over 80s. Admission for cellulitis, monitor for worsening infection Admission and Anticipated Discharge Date Admission Date: December 01, 2024 Subjective Left leg appears worse, now with weeping and increased redness. Review of Systems Review of Systems: CONST: Negative for fever, body aches and chills. HENT: Negative for neck pain/stiffness, headache, congestion, sore throat, swelling. EYES: Negative for discharge/pain or vision changes. RESP: Negative for cough/hemoptysis and shortness of breath. CV: Negative chest pain, difficulty breathing, palpitations. ABD: Negative pain, nausea, vomiting. : Negative increase frequency, dysuria, blood in urine or stool. MUSC: Negative for muscle aches, edema. SKIN: Negative rash, lesions/sores. NEURO: Negative headache, dizziness, weakness. Physical Exam Physical Exam: GENERAL APPEARANCE NAD, activity normal for age, well developed/ well nourished, no cyanosis, pallor, or diaphoresis. EYES lids/conjunctiva normal. EARS/NOSE/THROAT Mucous membranes moist, nares normal, lips/teeth normal uvula midline without oral pharyngeal erythema, exudate or swelling TMs normal bilaterally. No lymphangitis/lymphedema. HEAD/NECK normocephalic atraumatic, no facial trauma, neck is supple. RESPIRATORY respiratory effort normal, speaks in full sentences, no tripod position, no accessory muscle use. Lungs clear to auscultation without rhonchi, wheezes, rales CARDIAC Regular rate and rhythm, no edema. ABDOMINAL Soft, ND/NT. No evidence of fluid wave. No pulsatile masses on exam, rebound tenderness, Eduardo sign or pain over Mcburney's point. MUSCLES/EXTREMITIES No abnormal range of motion, no swelling. SKIN : left leg with erythema mid thigh, knee, progressing down calve. NEUROLOGICAL Speech is clear and appropriate. Normal level of consciousness. Gait and coordination are normal. 5/5 strength in all extremities. PSYCH Normal mood and affect. Judgement/competence is appropriate Results & Data Results & Data Vital Signs (Past 12 Hours) Vital Signs Temp Pulse Pulse Resp BP Pulse Ox O2 Del Method 12/04/24 09:14 Room Air 12/04/24 07:41 37.0 C 91 H 20 124/78 94 Room Air 12/03/24 22:02 97 H PG Care Time/CCT Total # of Minutes Spent Total Time Spent with Patient: Total time spent is greater than 50% in coordination of care (as documented) at patient's floor/unit and/or counseling patient: Coding Level of Care Code 65067 SUB INP/OBS CARE 2/35MIN Diagnoses Cellulitis of left leg L03.116 Hyponatremia E87.1 Hypomagnesemia E83.42 DMII (diabetes mellitus, type 2) E11.9 Primary hypertension I10 Hypertension type: primary hypertension (5) HTN (hypertension) Hypertension type: primary hypertension Qualified Code(s): I10 - Essential (primary) hypertension
[2024-12-04] MEDS: OPTIRAY 320 125ml IV ONE (11:03)
[2024-12-04] MEDS: DAPTOmycin 700 MG in SYRINGE 0 ML IV SCH (11:31)
--- NOTE | 2024-12-04 11:40 | CT Scan Report ---
Clinical history: Rule out infection Technique: Axial computed tomography images were obtained of the left knee after the administration of intravenous contrast. Sagittal and coronal reconstructions were obtained Comparison is made to the radiographs dated 12/01/2024 Findings: No fracture is identified. No subluxation or dislocation is seen. There are no significant arthritic changes. There are small sclerotic foci in the medial femoral condyle and medial tibial plateau, likely benign bone islands. There is no clear evidence of osteomyelitis The visualized musculature appears unremarkable. There is a small to moderate sized knee effusion. There is diffuse subcutaneous edema, concerning for cellulitis. No clear soft tissue abscess is identified. No foreign body is evident Impression: 1. Subcutaneous edema that may be due to cellulitis 2. No definite abscess or osteomyelitis 3. Mild to moderate sized left knee effusion Electronically signed by Logan Damon 12-04-2024 11:40 AM
--- NOTE | 2024-12-04 11:57 | Ultrasound Report ---
Clinical History: Edema Technique: Venous ultrasound evaluation was performed utilizing grayscale, color Doppler and wave form evaluation. Images were also obtained with and without compression Findings: The left common femoral, superficial femoral, popliteal, and visualized calf veins demonstrate normal anechoic lumens with full compressibility. Normal flow is seen on color Doppler images. Expected waveforms were produced with augmentation maneuvers Impression: No evidence of left leg deep venous thrombosis Electronically signed by Logan Damon 12-04-2024 11:57 AM
[2024-12-05] MEDS: ACETAMINOPHEN 500 MG TAB PO PRN (00:51)
[2024-12-05 05:54] LABS: Hematocrit (blood only) 34.3 % (42.0-52.0); Hemoglobin 11.3 g/dl (14.0-18.0); Mean Corpuscular Hemoglobin 27.3 pg (25.0-34.0); Mean Corpuscular Volume 82.9 fL (80.0-100.0); Platelet Count 265 K/uL (130-400); RDW Standard Deviation 39.1 fL (36.4-46.3); Red Blood Count 4.14 M/uL (4.70-6.10); White Blood Count 10.77 K/ul (4.8-10.8)
[2024-12-05 06:09] LABS: Anion Gap 7.0 (3-11); Blood Urea Nitrogen 19.0 mg/dl (6-23); Calcium 8.8 mg/dl (8.6-10.3); Carbon Dioxide 22.0 mmol/L (21-32); Chloride 106.0 mmol/L (98-107); Creatinine Clr Calc Pharmacy 171.1 ml/min; Glucose 213.0 mg/dl (70-99(Fasting)); Potassium 3.9 mmol/L (3.5-5.1); Sodium 135.0 mmol/L (136-145)
--- NOTE | 2024-12-05 10:09 | Hospitalist Progress Note ---
Date of Service December 05, 2024 Assessment & Plan (1) Cellulitis of left leg: Plan: -XR Tib/Fib and femur (L) without acute findings, only soft tissue swelling -pain control -ID consult appreciated -LE Knee CT showing no abscess -Left leg US negative for DVT -weeping blisters forming on top of areas of cellulitis -abx changed from ancef to daptomycin on 12/04 -f/u wound cultures -wound care consulted -will need inpatient stay to additional IV abx (2) DMII (diabetes mellitus, type 2): Plan: -SSI with target BSG range 110-150mg/dL, CF 10, carb ratio 5 - Lantus 33U BID - BSG ACHS (3) Hyponatremia: Plan: Likely appears decreased in setting of hyperglycemia. (4) Hypomagnesemia: Plan: -resolved -received magnesium sulfate (5) HTN (hypertension): Plan: -lisinopril -metoprolol (6) Open wound of right great toe: Plan: -podiatry consulted Plan 44-year-old male PMHx T2DM, NICM, CAD, autism, and HLD presenting for L knee pain. His evaluation is consistent with presence of infection supported by leukocytosis 15.53, lactate of 2.7 with 2.2 on repeat, and procalcitonin of 10.4. H&H is slightly decreased, with an elevated ESR of 82. Sodium slightly decreased at 131 in setting of hyperglycemia at 274. Magnesium 1.3. Imaging of LLE without acute findings at present, only noting diffuse soft tissue swelling. Patient has remained tachycardic and did have 1 hypotensive reading of 82/66, however his remaining blood pressures have been in the 120s to 140s over 80s. Admission for cellulitis, monitor for worsening infection Admission and Anticipated Discharge Date Admission Date: December 01, 2024 Subjective Pt's leg appears with less redness, but several areas of weeping blisters noted. Pt has had plants on and are rubbing against the skin on his thighs, causing increased irritation. He is agreeing to wear hospital paper paints. Review of Systems Review of Systems: CONST: Negative for fever, body aches and chills. HENT: Negative for neck pain/stiffness, headache, congestion, sore throat, swelling. EYES: Negative for discharge/pain or vision changes. RESP: Negative for cough/hemoptysis and shortness of breath. CV: Negative chest pain, difficulty breathing, palpitations. ABD: Negative pain, nausea, vomiting. : Negative increase frequency, dysuria, blood in urine or stool. MUSC: Negative for muscle aches, edema. SKIN: Negative rash, lesions/sores. NEURO: Negative headache, dizziness, weakness. Physical Exam Physical Exam: GENERAL APPEARANCE NAD, activity normal for age, well developed/ well nourished, no cyanosis, pallor, or diaphoresis. EYES lids/conjunctiva normal. EARS/NOSE/THROAT Mucous membranes moist, nares normal, lips/teeth normal uvula midline without oral pharyngeal erythema, exudate or swelling TMs normal bilaterally. No lymphangitis/lymphedema. HEAD/NECK normocephalic atraumatic, no facial trauma, neck is supple. RESPIRATORY respiratory effort normal, speaks in full sentences, no tripod position, no accessory muscle use. Lungs clear to auscultation without rhonchi, wheezes, rales CARDIAC Regular rate and rhythm, no edema. ABDOMINAL Soft, ND/NT. No evidence of fluid wave. No pulsatile masses on exam, rebound tenderness, Eduardo sign or pain over Mcburney's point. MUSCLES/EXTREMITIES No abnormal range of motion, no swelling. SKIN : left leg with erythema mid thigh, knee, progressing down calve. NEUROLOGICAL Speech is clear and appropriate. Normal level of consciousness. Gait and coordination are normal. 5/5 strength in all extremities. PSYCH Normal mood and affect. Judgement/competence is appropriate Results & Data Results & Data Vital Signs (Past 12 Hours) Vital Signs Temp Pulse Pulse Resp BP Pulse Ox O2 Del Method 12/05/24 07:41 Room Air 12/05/24 07:30 36.8 C 82 20 130/80 95 Room Air 12/05/24 07:22 91 H 12/04/24 22:27 37.0 C 95 H 20 142/79 H 97 Room Air PG Care Time/CCT Total # of Minutes Spent Total Time Spent with Patient: Total time spent is greater than 50% in coordination of care (as documented) at patient's floor/unit and/or counseling patient: Coding Level of Care Code 35111 SUB INP/OBS CARE 2/35MIN Diagnoses Cellulitis of left leg L03.116 DMII (diabetes mellitus, type 2) E11.9 Hyponatremia E87.1 Hypomagnesemia E83.42 Primary hypertension I10 Hypertension type: primary hypertension Open wound of right great toe S91.101A (5) HTN (hypertension) Hypertension type: primary hypertension Qualified Code(s): I10 - Essential (primary) hypertension
[2024-12-05] MEDS: IBUPROFEN 200 MG TAB PO PRN (13:36)
[2024-12-06 06:03] LABS: Hematocrit (blood only) 34.6 % (42.0-52.0); Hemoglobin 11.9 g/dl (14.0-18.0); Mean Corpuscular Hemoglobin 28.6 pg (25.0-34.0); Mean Corpuscular Volume 83.2 fL (80.0-100.0); Platelet Count 326 K/uL (130-400); RDW Standard Deviation 38.7 fL (36.4-46.3); Red Blood Count 4.16 M/uL (4.70-6.10); White Blood Count 10.22 K/ul (4.8-10.8)
[2024-12-06 06:36] LABS: Anion Gap 9.0 (3-11); Blood Urea Nitrogen 15.0 mg/dl (6-23); Calcium 9.0 mg/dl (8.6-10.3); Carbon Dioxide 24.0 mmol/L (21-32); Chloride 103.0 mmol/L (98-107); Creatinine Clr Calc Pharmacy 194.5 ml/min; Glucose 203.0 mg/dl (70-99(Fasting)); Potassium 4.0 mmol/L (3.5-5.1); Sodium 136.0 mmol/L (136-145)
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
--- NOTE | 2024-12-06 10:37 | XRay Report ---
XR foot RT min 3V routine CLINICAL HISTORY: R great toe infection COMPARISON: None FINDINGS: No acute fracture or dislocation seen. No evidence of osteomyelitis. There are dorsal soft tissue calcifications. No radiopaque foreign body seen. There are atherosclerotic calcifications. IMPRESSION: No osteomyelitis seen. ACT 112: Negative or not required by law. Electronically signed by: Arslan Fermin M.D. 12/06/2024 10:36 AM
--- NOTE | 2024-12-06 11:43 | Hospitalist Progress Note ---
Date of Service December 06, 2024 Assessment & Plan (1) Cellulitis of left leg: (2) DMII (diabetes mellitus, type 2): (3) Hyponatremia: (4) Hypomagnesemia: (5) HTN (hypertension): (6) Open wound of right great toe: Plan 44-year-old male PMHx T2DM, NICM, CAD, autism, and HLD presenting for L knee pain. His evaluation is consistent with presence of infection supported by leukocytosis 15.53, lactate of 2.7 with 2.2 on repeat, and procalcitonin of 10.4. H&H is slightly decreased, with an elevated ESR of 82. Sodium slightly decreased at 131 in setting of hyperglycemia at 274. Magnesium 1.3. Imaging of LLE without acute findings at present, only noting diffuse soft tissue swelling. Patient has remained tachycardic and did have 1 hypotensive reading of 82/66, however his remaining blood pressures have been in the 120s to 140s over 80s. Admission for cellulitis, monitor for worsening infection. #Left leg cellulitis Extending from the ankle up to the mid thigh Weeping blisters forming on top of areas of cellulitis R Tib/Fib and femur (L) without acute findings, only soft tissue swelling Pain control PRN LE Knee CT showing no abscess Left leg US negative for DVT ID consult appreciated Initially, ID signed off on 12/03, prior to patient cellulitis worsening Antibiotics changed from Ancef to daptomycin on 12/04 due to worsening of infection Touch base with ID on 12/06 regarding discharge disposition Could potentially discharge patient home on linezolid p.o. 600 mg q12h through 12/10 to complete 7 day course Wound care consult appreciated CRP was elevated at 41 on arrival Am CRP ordered, pending #T2DM SSI with target BSG range 110-150mg/dL, CF 10, carb ratio 5 Lantus 33U BID BSG ACHS #HTN Continue lisinopril, metoprolol #Diabetic ulcer on the left/right great toes Podiatry consult appreciated Debrided with Dr. Ferris on 12/06 X-rays of the feet bilaterally revealed no evidence of acute osteomyelitis Wound culture pending Disposition: Continued stay on MedSur telemetry Admission and Anticipated Discharge Date Admission Date: December 01, 2024 Subjective Mr. Kelley reports general improvement in his left lower extremity cellulitis when compared to prior. He denies any pain in his feet at baseline, but has been having left knee pain with movements. No pain at rest. He also believes that there has been swelling in his left leg leading to neuropathic pain, that feels like "fire" and "needlelike pain". Patient did not note a fever prior to admission, he denies any fevers whelping in the hospital. No prior history of MRSA infections. He did have an episode of cellulitis in his left lower extremity in February that began at the ankle and extended up his leg. He reports that this current episode does not hurt as much is the last episode. Additionally, he has ulcers on his big toes bilaterally; the left toe ulcer has been healing over the past 1.5 weeks, but the right toe ulcer is somewhat new. ROS: Patient endorses left knee pain with movements and intermittent numbness and tingling in the legs. Patient denies fever, chest pain, SOB, abdominal pain, N/V/D, or changes in urinary/bowel habits. Review of Systems 2 Review of Systems: See HPI above Physical Exam 2 Physical Exam: General: no acute distress; sitting upright in bed watching TV; non-toxic appearing; SpO2 95% on RA HEENT: normocephalic, atraumatic; no scleral icterus; PERRLA w/ EOMs intact; vision and hearing grossly intact Neck: supple; no lymphadenopathy; trachea midline Skin: warm, dry without signs of tenting; no cyanosis; no rashes, bruising, lesions, or erythema noted CV: chest wall NTP; RRR; S1/S2 normal; no murmurs/rubs/gallops; pulses intact and symmetric at radial, DP, and PT Lungs: no acute respiratory distress; symmetrical chest wall expansion; clear breath sounds across all lung beverly w/o adventitious sounds; no wheezing ABD: Soft, NTP; BS present; no rebound/guarding; no distention MSK: no tics or fasciculations; lower extremities are edematous with nonpitting edema extending up to thighs; left lower extremity is erythematous from the dorsal aspect of foot up to the mid thigh with skin peeling around the ankle and posterior thigh (see photo below); mildly TTP Feet: Diabetic ulcer of the left and right great toes appreciated, purulent drainage appreciated on the left hallux Neuro: A&Ox3; normal mood and affect; fluent speech; no focal deficits; patient reports sensation is intact and symmetric in lower extremities bilaterally assessed via light touch Results & Data Results & Data Vital Signs (Past 12 Hours) Vital Signs Temp Pulse Resp BP Pulse Ox O2 Del Method 12/06/24 11:36 36.6 C 93 H 16 132/86 95 Room Air 12/06/24 08:00 Room Air 12/06/24 07:54 36.9 C 97 H 16 124/71 96 Room Air 12/06/24 05:27 36.7 C 88 20 138/82 95 Room Air PG Care Time/CCT Total # of Minutes Spent Total Time Spent with Patient: Total time spent is greater than 50% in coordination of care (as documented) at patient's floor/unit and/or counseling patient: C[place] [address] SUB INP/OBS CARE 3/50MIN Patient Type Established History Comprehensive Exam Comprehensive Medical Decision Making High Complexity Diagnoses Cellulitis of left leg L03.116 DMII (diabetes mellitus, type 2) E11.9 Hyponatremia E87.1 Hypomagnesemia E83.42 Primary hypertension I10 Hypertension type: primary hypertension Open wound of right great toe S91.101A (5) HTN (hypertension) Hypertension type: primary hypertension Qualified Code(s): I10 - Essential (primary) hypertension
--- NOTE | 2024-12-06 14:38 | XRay Report ---
XR foot LT min 3V routine CLINICAL HISTORY: Diabetic ulcer left great toe COMPARISON: None FINDINGS: There is diffuse soft tissue swelling. No fracture or dislocation. No evidence of osteomy elitis. IMPRESSION: No osteomyelitis seen. ACT 112: Negative or not required by law. Electronically signed by: Arslan Fermin M.D. 12/06/2024 2:36 PM
[2024-12-07 06:12] LABS: Hematocrit (blood only) 33.2 % (42.0-52.0); Hemoglobin 11.7 g/dl (14.0-18.0); Mean Corpuscular Hemoglobin 29.0 pg (25.0-34.0); Mean Corpuscular Volume 82.2 fL (80.0-100.0); Platelet Count 363 K/uL (130-400); RDW Standard Deviation 38.4 fL (36.4-46.3); Red Blood Count 4.04 M/uL (4.70-6.10); White Blood Count 12.45 K/ul (4.8-10.8)
[2024-12-07 06:31] LABS: Anion Gap 8.0 (3-11); Blood Urea Nitrogen 16.0 mg/dl (6-23); Calcium 8.8 mg/dl (8.6-10.3); Carbon Dioxide 24.0 mmol/L (21-32); Chloride 102.0 mmol/L (98-107); Creatinine Clr Calc Pharmacy 208.1 ml/min; Glucose 189.0 mg/dl (70-99(Fasting)); Potassium 4.0 mmol/L (3.5-5.1); Sodium 134.0 mmol/L (136-145)
--- NOTE | 2024-12-07 11:12 | Hospitalist Progress Note ---
Date of Service December 07, 2024 Assessment & Plan (1) Cellulitis of left leg: (2) DMII (diabetes mellitus, type 2): (3) Hyponatremia: (4) Hypomagnesemia: (5) HTN (hypertension): (6) Open wound of right great toe: Plan 44-year-old male PMHx T2DM, NICM, CAD, autism, and HLD presenting for L knee pain. His evaluation is consistent with presence of infection supported by leukocytosis 15.53, lactate of 2.7 with 2.2 on repeat, and procalcitonin of 10.4. H&H is slightly decreased, with an elevated ESR of 82. Sodium slightly decreased at 131 in setting of hyperglycemia at 274. Magnesium 1.3. Imaging of LLE without acute findings at present, only noting diffuse soft tissue swelling. Patient has remained tachycardic and did have 1 hypotensive reading of 82/66, however his remaining blood pressures have been in the 120s to 140s over 80s. Admission for cellulitis, monitor for worsening infection. #Left leg cellulitis Extending from the ankle up to the mid thigh Weeping blisters forming on top of areas of cellulitis R Tib/Fib and femur (L) without acute findings, only soft tissue swelling Pain control PRN LE Knee CT showing no abscess Left leg US negative for DVT ID consult appreciated Initially, ID signed off on 12/03, prior to patient cellulitis worsening Antibiotics changed from Ancef to daptomycin on 12/04 due to worsening of infection Touch base with ID on 12/06 regarding discharge disposition Could potentially discharge patient home on linezolid p.o. 600 mg q12h through 12/10 to complete 7 day course Not on SSRIs; platelets okay Wound care consult appreciated CRP downtrendin.6 on 12/01 -> 12.7 on 12/07 #Left knee pain | ambulatory dysfunction (improving) Patient reported difficulty walking/getting up to the bathroom on 12/06 due to left knee pain PT/OT evaluations appreciated for discharge disposition; recommending return home upon discharge Fall precautions Patient declines pain medications (such as oxycodone) prior to discharge, reporting that he feels that he be able to manage pain with Tylenol at home #Diabetic ulcer on the left/right great toes Podiatry consult appreciated Debrided with Dr. Ferris on 9/22 X-rays of the feet bilaterally revealed no evidence of acute osteomyelitis Wound culture on 12/07 showing "pinpoint growth, requiring reincubation" Patient likely to benefit from outpatient follow-up with diabetic foot clinic v. wound clinic upon discharge #T2DM Given slightly elevated blood sugar levels (around 180-200), will narrow SSI on 12/07 SSI with target BSG range 110-140mg/dL, CF 10, carb ratio 5 Lantus 33U BID -> increased to 35u BID BSG ACHS #HTN Continue lisinopril, metoprolol Disposition: Continued stay on MedSurg telemetry Admission and Anticipated Discharge Date Admission Date: December 01, 2024 Subjective Mr. Kelley is happy to report that his left knee pain is much better today compared yesterday. Last night, he reports it was too painful to get up. He was not able to make the bathroom last night, and felt unsteady on his feet. Ho wever today, the pain in his left knee has improved substantially and he is able to stand and ambulate independently. Patient does have a cane at home, which he uses as needed. While he finds it difficult to characterize the left knee pain, he reports a dull achy pain at rest, and reports that the pain is bearable unless he is up moving around on it. Worse with bending. He believes that he would be able to control the pain with Tylenol at home, and reports that medication such as oxycodone have not worked for him in the past. Patient does not follow with the wound care clinic outpatient, he is amenable to touching base with them upon discharge. He is also requesting that we send in a work release order to his employer ([employer]), details below. ROS: Patient endorses left knee pain. Patient denies fevers overnight, chest pain, SOB, DAVIS, abdominal pain, or N/V/D. Fax: [employer] [phone] Attn: Lissa Review of Systems Review of Systems: See HPI above Physical Exam Physical Exam: General: no acute distress; non-toxic appearing; SpO2 94% on RA HEENT: normocephalic, atraumatic; no scleral icterus; PERRLA; vision and hearing grossly intact Neck: supple; no lymphadenopathy; trachea midline Skin: warm, dry without signs of tenting; no cyanosis; no rashes, bruising, lesions, or erythema noted CV: chest wall NTP; RRR; S1/S2 normal; no murmurs/rubs/gallops; pulses intact and symmetric at radial, DP, and PT Lungs: no acute respiratory distress; symmetrical chest wall expansion; clear breath sounds across all lung beverly w/o adventitious sounds; no wheezing ABD: Soft, NTP; BS present; no rebound/guarding; suboptimal exam secondary to body habitus MSK: no tics or fasciculations; lower extremities are edematous with nonpitting edema extending up to thighs; left lower extremity is erythematous from the dorsal aspect of foot up to the mid thigh with skin peeling around the ankle and posterior thigh; mildly TTP Feet: Diabetic ulcer of the left and right great toes appreciated, purulent drainage appreciated on the left hallux Neuro: A&Ox3; normal mood and affect; fluent speech; no focal deficits; patient reports sensation is intact and symmetric in lower extremities bilaterally assessed via light touch Gait: Patient exhibits the ability to push off the bed and stand independently; he exhibits ability to take several steps to and from the bathroom independently without postural sway/difficulty Results & Data Results & Data Vital Signs (Past 12 Hours) Vital Signs Temp Pulse Resp BP Pulse Ox O2 Del Method 12/07/24 07:46 36.8 C 89 18 143/81 H 94 Room Air 12/07/24 03:26 36.8 C 92 H 18 125/79 93 Room Air 12/06/24 23:15 37.0 C 93 H 16 122/72 95 Room Air PG Care Time/CCT Total # of Minutes Spent Total Time Spent with Patient: Total time spent is greater than 50% in coordination of care (as documented) at patient's floor/unit and/or counseling patient: C[place] [address] SUB INP/OBS CARE 3/50MIN Patient Type Established History Comprehensive Exam Comprehensive Medical Decision Making High Complexity Diagnoses Cellulitis of left leg L03.116 DMII (diabetes mellitus, type 2) E11.9 Hyponatremia E87.1 Hypomagnesemia E83.42 Primary hypertension I10 Hypertension type: primary hypertension Open wound of right great toe S91.101A (5) HTN (hypertension) Hypertension type: primary hypertension Qualified Code(s): I10 - Essential (primary) hypertension
[2024-12-07] MEDS: LANTUS PER UNIT CHARGE SQ SCH (20:19)
[2024-12-08 03:09] VITALS: RESP 18
[2024-12-08 07:11] LABS: Hematocrit (blood only) 34.5 % (42.0-52.0); Hemoglobin 11.9 g/dl (14.0-18.0); Mean Corpuscular Hemoglobin 28.6 pg (25.0-34.0); Mean Corpuscular Volume 82.9 fL (80.0-100.0); Platelet Count 397 K/uL (130-400); RDW Standard Deviation 38.2 fL (36.4-46.3); Red Blood Count 4.16 M/uL (4.70-6.10); White Blood Count 12.32 K/ul (4.8-10.8)
[2024-12-08 07:41] LABS: Anion Gap 7.0 (3-11); Blood Urea Nitrogen 18.0 mg/dl (6-23); Calcium 9.0 mg/dl (8.6-10.3); Carbon Dioxide 27.0 mmol/L (21-32); Chloride 101.0 mmol/L (98-107); Creatinine Clr Calc Pharmacy 177.8 ml/min; Glucose 195.0 mg/dl (70-99(Fasting)); Potassium 4.0 mmol/L (3.5-5.1); Sodium 135.0 mmol/L (136-145)
--- NOTE | 2024-12-08 09:59 | Discharge Summary ---
Discharge Summary Date of Service December 08, 2024 Principal Dx & Hospital Course #1 = Principal Diagnosis (1) Cellulitis of left leg: (2) DMII (diabetes mellitus, type 2): (3) Hyponatremia: (4) Hypomagnesemia: (5) HTN (hypertension): (6) Open wound of right great toe: Plan 44-year-old male PMHx T2DM, NICM, CAD, autism, and HLD presenting for L knee pain. His evaluation is consistent with presence of infection supported by leukocytosis 15.53, lactate of 2.7 with 2.2 on repeat, and procalcitonin of 10.4. H&H is slightly decreased, with an elevated ESR of 82. Sodium slightly decreased at 131 in setting of hyperglycemia at 274. Magnesium 1.3. Imaging of LLE without acute findings at present, only noting diffuse soft tissue swelling. Patient has remained tachycardic and did have 1 hypotensive reading of 82/66, however his remaining blood pressures have been in the 120s to 140s over 80s. Admission for cellulitis, monitor for worsening infection. #Left leg cellulitis Extending from the ankle up to the mid thigh Weeping blisters forming on top of areas of cellulitis R Tib/Fib and femur (L) without acute findings, only soft tissue swelling Pain control PRN LE Knee CT showing no abscess Left leg US negative for DVT CRP downtrendin.6 on 12/01 -> 10.94 on day of discharge 12/08 ID consult appreciated Initially, ID signed off on 12/03, prior to patient cellulitis worsening Antibiotics changed from Ancef to daptomycin on 12/04 due to worsening of infection Touched base with ID on 12/06 regarding discharge disposition Will plan to d/c on linezolid p.o. 600 mg q12h through 12/10 to complete 7 day course Not on SSRIs; platelets okay Recommend patient follow-up with the wound care center and diabetic foot clinic following discharge #Left knee pain | ambulatory dysfunction (improving) Patient reported difficulty walking/getting up to the bathroom on 12/06 due to left knee pain PT/OT evaluations appreciated for discharge disposition; recommending return home upon discharge Fall precautions Patient declines pain medications (such as oxycodone) prior to discharge, reporting that he feels that he be able to manage pain with Tylenol at home #Diabetic ulcer on the left/right great toes Podiatry consult appreciated Debrided with Dr. Ferris on 12/06 X-rays of the feet bilaterally revealed no evidence of acute osteomyelitis Wound culture on 12/07 and 12/08 showing "pinpoint growth, requiring reincubation" Please follow final wound culture as an outpatient #T2DM Continue home regimen upon discharge #HTN | HLD Continue lisinopril, metoprolol, and Lipitor Patient reports he is out of the above medications at home; he originally had an appointment on Sunday 12/03 with Cardiology to have these medications refilled, but missed it due to hospitalization Will send patient home on a 30-day prescription for metoprolol, Lipitor, lisinopril, and K-Phos Encouraged patient to follow-up with cardiology as soon as possible Touched base with our case management team about rescheduling cardiology appointment Day of discharge 12/08: VSS Patient reports he is itching in his leg has subsided, and he is having minimal pain in the left knee at rest. He has been eating and sleeping well. No d ifficulty with walking to the bathroom; he still reports that it is difficult, but he is "used to having knee pain". Overall, he feels ready to go to home today. He declines additional pain medication upon discharge. He does report that he received morphine 4 mg IV around 0830 this morning, and was informed that he will not be able to drive himself home from the hospital until after 1430 or later. Patient reports he lives approximately 20 minutes from the hospital. Patient also expressed concern that he has a cardiology appointment that was missed on Friday. He is requesting temporary refills for his cardiac medications (metoprolol, Lipitor, lisinopril, and K-Phos). ROS: Patient endorses left knee pain with movements. Patient denies fever, chills, night sweats, chest pain, SOB, cough, abdominal pain, N/V/D, or changes in urinary/bowel habits. Disposition: Discharge home with close follow-up Notes For Next Care Provider Patient hospitalized from for a left lower extremity cellulitis extending from his ankle up to his mid thigh. Initially, he was treated with IV Ancef, but was switched to IV daptomycin after an acute worsening. He will be sent home on linezolid 600 mg tablets every 12 hours x 2 additional days. Please be on the look out for patient's finalized wound culture (drawn from the left foot on 12/06) as that needed to be reintubated prior to discharge. No preliminary results available at time of discharge. Patient will need to follow-up with the wound care center, as well as the diabetic foot clinic, upon discharge. Additionally, the following medications were sent in for 30-day refills: metoprolol, Lipitor, lisinopril, and K-Phos Admission HPI Per Admitting Provider 44-year-old male PMHx T2DM, NICM, CAD, autism, and HLD presenting for L knee pain. Pt states that the afternoon [employer] he started to notice muscle aches that were generalized. He thought these were secondary to the "shiver attack" he had had 2 days [employer] which he described as 2 hours of shivering while in a 75 degrees Fahrenheit room, which he thought was a seizure. He called his director emergency services who stated that given there was no LOC and he had full control of his body during this episode, it was likely not a seizure. Pt states that he did not go to work that night because he wanted to recover. The day [employer] however, his L knee started to bother him. He describes it as an aching sensation throughout his knee that "wasn't that bad". 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 He then notes that he always has a "low grade temp" which normally sits around 99 degrees Fahrenheit, but on the day of arrival it had increased to 102 degrees Fahrenheit. He also noted that the skin of his LLE was becoming warm and red, causing him more discomfort. He denies injury to the leg and has not had any falls. He states that his ankle and foot feels normal. He occasionally feels that his L ankle becomes stiff, but he is able to stretch it out with basic exercises at home. He did have a wound on the bottom of his L great toe which he states has been healed and he is no longer taking medications for. He has not taken his antihypertensives because he ran out of the the day [employer] (11/30). He is to see cardiology on 12/03. He admits to heartburn the day [employer] into the day of arrival which was relieved with "OTC medications for reflux." He states he has chronic diarrhea because he "is on Mounjaro." ~ 2-3 week [employer] he had a very slightly irritated throat and some nasal drainage that lasted a week and resolved on its own. He did not take any medications for the pain in his knee. Denies CP, SOB, palpitations, abdominal pain, N/V/C, numbness/tingling, URI symptoms, LUTS, weakness, syncope, or falls. ED evaluation revealed CBC with leukocytosis 15.53, H&H 13.5/37.6; ESR 82; PT/INR WNL, APTT 33; CMP sodium 131, CO2 19, BUN 26, glucose 274, albumin 3.2; lactate 2.7, 2.2 on repeat; magnesium 1.3; procalcitonin 10.4; tibia/fibula XR (L) old injury medial malleolus, calcaneal spur; femur x-ray with diffuse soft tissue swelling; EKG pending.; Provided with 500 mL NSS, morphine 6 mg IV, mag sulfate 2 g IV, acetaminophen 1 g IV, ceftriaxone 2 g IV, and vancomycin 2.75 g IV in ED. Please see Dr. Corrales's attestation for adjustments/additions to treatment plan. Admission Exam Per Admitting Provider General: No acute distress, obese Skin: Warm and dry; LLE with erythematous, edematous, and warm to touch spread from foot to just above knee; healed wound on base of L great toe, scar on top of L foot, no open wounds identified (see images) Head: Normocephalic, atraumatic Eyes: PERRL, conjunctivae clear, sclera non-icteric; wearing glasses ENT: External ear and ear canal without swelling; nose atraumatic; good dentition, tongue normal appearance, pharynx normal Neck: Supple, no LAD Cardio: RRR, no M/G/R, S1 and S2 normal Resp: No respiratory distress, Lungs CTA in all lobes bilaterally, no wheezes, rales, or rhonchi Abdomen: Soft, symmetric, nontender; No masses or hepatosplenomegaly; Bowel sounds normoactive MSK: No deformities; pulses palpable and equal; Nonpitting edema LLE. Neuro: Awake, alert; Sensation intact bilaterally; CN grossly intact Psych: Appropriate mood and affect; good judgement and insight. Discharge Exam General: no acute distress; non-toxic appearing; SpO2 94% on RA HEENT: normocephalic, atraumatic; no scleral icterus; PERRLA; vision and hearing grossly intact Neck: supple; no lymphadenopathy; trachea midline Skin: warm, dry without signs of tenting; no cyanosis; no rashes, bruising, lesions, or erythema noted CV: chest wall NTP; RRR; S1/S2 normal; no murmurs/rubs/gallops; pulses intact and symmetric at radial, DP, and PT Lungs: no acute respiratory distress; symmetrical chest wall expansion; clear breath sounds across all lung beverly w/o adventitious sounds; no wheezing ABD: Soft, NTP; BS present; no rebound/guarding; suboptimal exam secondary to body habitus MSK: no tics or fasciculations; lower extremities are edematous with nonpitting edema extending up to thighs; left lower extremity is erythematous from the dorsal aspect of foot up to the mid thigh with skin peeling around the ankle and posterior thigh; mildly TTP Feet: Diabetic ulcer of the left and right great toes appreciated, purulent drainage appreciated on the left hallux Neuro: A&Ox3; normal mood and affect; fluent speech; no focal deficits; patient reports sensation is intact and symmetric in lower extremities bilaterally assessed via light touch Gait: Patient exhibits the ability to push off the bed and stand independently; he exhibits ability to take several steps to and from the bathroom independently Discharge Plan Discharge Items Patient Disposition: Home - Self-Care Reason For Visit: CELLULITIS, SIRS CRITERIA Discharge Diagnosis: Left lower extremity cellulitis Condition on Discharge: Fair Activity: As commented below Activity Comment: Avoid prolonged walking and episodes of LE physical exertion x 2 to 3 days Non-emergency contact: Primary Care Provider Call non-emergency contact if: you have any medication questions, your symptoms worsen, your pain is not controlled and you have a fever Follow-up/Referrals: Violet Hdz MD [Primary Care Provider] - Diet: Carb Consistent or DM2 Addtl Attending Provider Instructions: You were hospitalized at [facility] from 12/01 - 12/08 due to a left lower extremity cellulitis. Your blood work on arrival was consistent with infection, showing an elevated white blood cell count at 15 (normal reference range 5-11) as well as an elevated blood marker called "CRP" which looks at inflammation in the body. Imaging of your left lower extremity revealed no infection in the bone called osteomyelitis. An ultrasound of your left leg revealed no blood clots. You were initially treated with an IV antibiotic called cefazolin; however, due to an acute worsening of the cellulitis, this antibiotic was upgraded to IV daptomycin. Given your vitals have remained stable, the redness on your leg has begun to subside, and you report overall improvement in your left knee pain, we feel that you are safe to be discharged home on oral antibiotics. New prescription upon discharge: - Linezolid 600 mg tablets twice daily x 2 additional days Refills sent to pharmacy upon discharge: - Atorvastatin 40 mg daily Note: do NOT take this medication on 12/08, as you received taking it at the same time as Daptomycin can lead to muscle damage / toxicity Okay to restart on 12/09 - Metoprolol succinate 50mg twice daily - Lisinopril 20 mg daily - Potassium phosphate, monobasic 500 mg tablets daily Please plan to follow-up with your PCP in the next 7 to 10 days for a transitional care appointment. We have also touched base with our case management assistant about rescheduling your missed cardiology appointment as soon as possible. We recommend you follow-up with the diabetic foot clinic and the wound care center; please be on the look out for further correspondence and reach out if you not heard anything in the next 2 to 3 days. If you develop any new or worsening symptoms, such as fever, chills, intractable left knee pain, difficulty walking, or pain/burning/redness/swelling in the left leg, please return to the emergency department immediately. It was a pleasure taking care of you. Please reach out with any questions or concerns. Sincerely, The hospital medicine team at [facility] Addtl Picker Packer Provider Instructions: DIABETES RECOMMENDATIONS: 1.) Restart FreeStyle Yulia CGM sensor following discharge for closer monitoring of blood sugar levels and to help guide diet/diabetes medication adjustments, as needed. 2.) Aim to maintain blood sugar levels below 180 (ideally below 140 before meals) to support healing/continued recovery. Please notify your provider of blood sugar levels frequently above these targets. 3.) Take the full dose of Glimepiride 4mg x 2 in the morning. There is no need to take it twice a day. This should help you get the full dose every day. 4.) Lifestyle changes- to support healing, aim for balanced meals with fruits/vegetables, more protein/vegetables, mindful of portion sizes of carbs/starches. 5.) Continue to follow-up with Remi CARR as previously planned. Next appointment on 12/22. If you have any any additional questions or concerns, please call the [facility] diabetes office at [phone] or Remi Kay at [phone]. Take Care!! Pending Studies at Discharge: Yes Studies:: Aerobic/anaerobic wound culture taken on 12/06 Stand-Alone Forms: [facility] [employer], Work/School Release Medications and DC Order Prescriptions: New linezolid 600 mg tablet 600 mg PO BID 2 Days Qty: 4 0RF Rx Instructions: Take 1 tablet by mouth twice daily x 2 days metoprolol succinate 50 mg tablet extended release 24 hr 50 mg PO BID 30 Days Qty: 60 0RF Rx Instructions: Take 1 tablet by mouth twice daily lisinopril 20 mg tablet 20 mg PO DAILY 30 Days Qty: 30 0RF Rx Instructions: Take one tablet by mouth daily K-Phos Original 500 mg tablet,soluble 500 mg PO DAILY Qty: 30 0RF Rx Instructions: Take 1 tablet daily atorvastatin 40 mg tablet 40 mg PO DAILY Qty: 30 0RF Rx Instructions: Take 1 tablet daily Continued K-Phos Original 500 mg tablet,soluble 500 mg PO DAILY Qty: 90 5RF metoprolol succinate 50 mg tablet extended release 24 hr 50 mg PO BID Qty: 180 3RF atorvastatin 40 mg tablet 40 mg PO QAM Qty: 90 3RF lisinopril 20 mg tablet 20 mg PO DAILY Qty: 90 3RF glimepiride 4 mg tablet 4 mg PO BID Qty: 180 3RF Rx Instructions: Take one tablet before breakfast, 1 tablet before supper tirzepatide 7.5 mg/0.5 mL pen injector 7.5 mg subcut .weekly Qty: 6 2RF Rx Instructions: Inject 7.5mg once weekly (DME) FreeStyle Yulia 3 Plus Sensor Device See Rx Instructions .Route Qty: 2 6RF Rx Instructions: Change sensor every 15 days (DME) FreeStyle Yulia 3 Blount Misc See Rx Instructions .Route Qty: 1 0RF Rx Instructions: Scan 3 times daily and as needed insulin glargine [Lantus Solostar U-100 Insulin] 100 unit/mL (3 mL) insulin pen 40 - 50 unit subcut BID MDD 100 90 Days Qty: 60 3RF acetaminophen [Tylenol] 325 mg Tablet 650 mg PO QID PRN (Reason: Pain) naproxen sodium 220 mg Tablet 440 mg PO BID PRN (Reason: Pain) ibuprofen 200 mg Tablet 400 mg PO Q6H PRN (Reason: Pain) aspirin 81 mg Tablet,Delayed Release (Dr/Ec) 81 mg PO QAM Qty: 90 0RF Discharge Orders: Discharge Order (Routine); Ordered 12/08/24 Ordered By: Raheel Zamora/Other Patient Handouts: Managing Type 2 Diabetes, Cellulitis Dc, Diabetes: Meal Planning Admission Data Admit Date/Time: 12/01/24 20:19 Attending Provider: Christiano Mcmahon Admit Provider: Olivia Corrales Primary Care Provider: Violet Hdz Other Providers: Olivia Corrales; Norbert Alonso Hospital Stay Data Consultations 12/01/24 19:44 ED Decision to Admit Stat 12/02/24 07:37 Consult Infectious Diseases Routine 12/05/24 10:01 Consult Podiatry Routine Diagnostic Imagining Performed 12/04/24 07:31 US venous duplex leg [US venous doppler LE LT] Routine 12/04/24 09:39 CT knee LT w con Routine Pending Results Patient Have Any Pending Studies at Discharge: Yes Discharge Instructions Given to Patient (Per Discharging Provider) You were hospitalized at [facility] from 12/01 - 12/08 due to a left lower extremity cellulitis. Your blood work on arrival was consistent with infection, showing an elevated white blood cell count at 15 (normal reference range 5-11) as well as an elevated blood marker called "CRP" which looks at inflammation in the body. Imaging of your left lower extremity revealed no infection in the bone called osteomyelitis. An ultrasound of your left leg revealed no blood clots. You were initially treated with an IV antibiotic called cefazolin; however, due to an acute worsening of the cellulitis, this antibiotic was upgraded to IV daptomycin. Given your vitals have remained stable, the redness on your leg has begun to subside, and you report overall improvement in your left knee pain, we feel that you are safe to be discharged home on oral antibiotics. New prescription upon discharge: - Linezolid 600 mg tablets twice daily x 2 additional days Refills sent to pharmacy upon discharge: - Atorvastatin 40 mg daily Note: do NOT take this medication on 12/08, as you received taking it at the same time as Daptomycin can lead to muscle damage / toxicity Okay to restart on 12/09 - Metoprolol succinate 50mg twice daily - Lisinopril 20 mg daily - Potassium phosphate, monobasic 500 mg tablets daily Please plan to follow-up with your PCP in the next 7 to 10 days for a transitional care appointment. We have also touched base with our case management assistant about rescheduling your missed cardiology appointment as soon as possible. We recommend you follow-up with the diabetic foot clinic and the wound care center; please be on the look out for further correspondence and reach out if you not heard anything in the next 2 to 3 days. If you develop any new or worsening symptoms, such as fever, chills, intractable left knee pain, difficulty walking, or pain/burning/redness/swelling in the left leg, please return to the emergency department immediately. It was a pleasure taking care of you. Please reach out with any questions or concerns. Sincerely, The hospital medicine team at [facility] Total Time Total Time Spent Total Time Spent (In Minutes): 45 [place] [address] INP/OBS DISCH >30 MIN Patient Type Established Medical Decision Making High Complexity Diagnoses Cellulitis of left leg L03.116 DMII (diabetes mellitus, type 2) E11.9 Hyponatremia E87.1 Hypomagnesemia E83.42 Primary hypertension I10 Hypertension type: primary hypertension Open wound of right great toe S91.101A
[2024-12-08 10:35] LABS: Creatine Kinase 39.0 U/L (30-223)
[2024-12-08 11:30] VITALS: BP 108/63; TEMP 98.1; O2SAT 94
[2024-12-08 13:17] VITALS: PULSE 111
--- NOTE | 2024-12-08 14:18 | Podiatry Progress Note ---
Date of Service December 08, 2024 Assessment & Plan (1) Diabetic ulcer of right great toe: (2) Diabetic ulcer of left great toe: Plan Diabetic ulcer bilateral hallux: -Left hallux: Wound evaluated and redressed with Aquacel Ag and a dry sterile dressing. Decreased dimensions and no signs of local soft tissue infection. -Right hallux: Wound evaluated and redressed Aquacel Ag and a dry sterile dressing. Decreased wound dimensions and no signs of local soft tissue infection. -Bilateral x-rays of the foot reviewed with no signs of bony erosion to suggest osteomyelitis. -Patient to continue to change dressings at home once daily with Aquacel Ag and a dry sterile dressing. -Continue postop shoes bilateral at all times while weightbearing. -Recommend follow-up in the wound care center with any provider in the next 2 weeks for reevaluation and ongoing wound care and offloading. -Okay for discharge from podiatry standpoint. Admission and Anticipated Discharge Date Admission Date: December 01, 2024 Review of Systems Review of Systems: Denies nausea, vomiting, fever, chills, shortness of breath, chest pain. Reports pain in the left leg most notably at the level of the knee. Physical Exam Physical Exam: Const: Appears well developed and well nourished. No signs of acute distress present. Obese CV: Extremities: No cyanosis or edema. Capillary refill time is less than 2 seconds all digits of the bilateral foot. Posterior tibial and dorsalis pedis pulses are palpable bilateral. Lymph: No palpable or visible regional lymphadenopathy. Neuro: Sensation intact to light touch in all areas of the foot and ankle. Psych: Mood/Affect: Mood is normal. Affect is normal. Cognition: Orientation is intact to person, place and time. Focused lower extremity musculoskeletal exam: Leg: Left leg is wrapped in multiple chucks to manage drainage from superficial weeping areas. Ankles: Normal to inspection and palpation. No swelling bilaterally. No tenderness bilaterally. Motor strength is intact. Range of motion pain-free and unlimited. Feet: Diabetic ulcer left hallux: Measures 0.4 x 0.3 x 0.2. Significant improvement with decreased dimensions and depth over the past 48 hours. Healthy granular wound bed. No signs of local soft tissue infection. No active drainage. Diabetic ulcer to the right hallux measures 1.2 x 0.8 x 0.1 cm. Periwound rubi thema and edema has resolved. No signs of local soft tissue infection. Results & Data Results & Data Vital Signs (Past 12 Hours) Vital Signs Temp Pulse Pulse Pulse Resp BP Pulse Ox 12/08/24 13:16 36.7 C 111 H 88 18 108/63 94 12/08/24 11:29 36.7 C 88 18 108/63 94 12/08/24 07:05 36.8 C 88 18 123/84 92 12/08/24 05:29 124 H 12/08/24 05:29 87 12/08/24 03:08 36.9 C 98 H 18 127/79 95 O2 Del Method 12/08/24 13:16 12/08/24 11:29 Room Air 12/08/24 07:05 Room Air 12/08/24 05:29 12/08/24 05:29 12/08/24 03:08 Room Air Coding Level of Care Code 61303 SUB INP/OBS CARE 2/35MIN Diagnoses Diabetic ulcer of right great toe E11.621; L97.519 Diabetic ulcer of left great toe E11.621; L97.529
== END 2024-12-08 14:34 | disposition home or self-care (01) | DRG 854 ==
LOC: ED 16:50 → SUATTDRO 20:19 → EDINP 20:19 → 2S 21:50

== ENCOUNTER 2025-01-03 14:08 | Inpatient (IN) ==
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
[2025-01-03 15:14] LABS: Hematocrit (blood only) 34.8 % (42.0-52.0); Hemoglobin 11.7 g/dl (14.0-18.0); Immature Granulocytes # (auto) 0.08 K/uL (0.01-0.20); Immature Granulocytes % (auto) 0.6 %; Mean Corpuscular Hemoglobin 27.7 pg (25.0-34.0); Mean Corpuscular Volume 82.3 fL (80.0-100.0); Platelet Count 222 K/uL (130-400); RDW Standard Deviation 39.8 fL (36.4-46.3); Red Blood Count 4.23 M/uL (4.70-6.10); White Blood Count 14.35 K/ul (4.8-10.8)
[2025-01-03] MEDS: CEFEPIME 2000MG 2,000 MG/20 ML SYR IV STA (16:43)
[2025-01-03 16:44] LABS: Alanine Aminotransferase 14.0 U/L (7-52); Albumin Globulin Ratio 0.7 (0.9-2); Albumin Level 3.1 gm/dl (3.4-5.0); Alkaline Phosphatase 81.0 U/L (34-104); Anion Gap 9.0 (3-11); Bilirubin,Total 0.6 mg/dl (0.2-1.0); Blood Urea Nitrogen 21.0 mg/dl (6-23); Calcium 9.0 mg/dl (8.6-10.3); Carbon Dioxide 21.0 mmol/L (21-32); Chloride 101.0 mmol/L (98-107); Creatinine Clr Calc Pharmacy 161.2 ml/min; Globulin 4.4 gm/dl (2.5-4.0); Glucose 342.0 mg/dl (70-99(Fasting)); Potassium 4.2 mmol/L (3.5-5.1); Sodium 131.0 mmol/L (136-145); Total Protein 7.5 gm/dl (6.0-8.3)
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
[2025-01-03] MEDS ORDERED: DAPTOmycin 850 MG in SYRINGE 0 ML IV SCH (17:00)
[2025-01-03] MEDS: DAPTOMYCIN IV ONE (17:18)
[2025-01-03] MEDS ORDERED: GLUCOSE 10 TAB/TUBE PO PRN (21:33)
[2025-01-03] MEDS ORDERED: GLUCAGON FOR INJ 1 MG VIAL SQ PRN (21:33)
[2025-01-03] MEDS ORDERED: DEXTROSE 50% 50 ML SYRINGE IV PRN (21:33)
[2025-01-03] MEDS ORDERED: CARBOHYDRATES FOR HYPOGLYCEMIA PO PRN (21:33)
[2025-01-03] MEDS ORDERED: NAPROXEN SODIUM 220 MG PO PRN (21:33)
[2025-01-03] MEDS ORDERED: IBUPROFEN 200 MG TAB PO PRN (21:33)
[2025-01-03] MEDS ORDERED: GLUCOSE 40% GEL 15 GM TUBE PO PRN (21:33)
[2025-01-03] MEDS: LACTATED RINGER'S 500 ML IV ONE (22:06)
[2025-01-03] MEDS: INSULIN ASPART PER UNIT CHARGE SC SCH (22:42)
[2025-01-03] MEDS: METOPROLOL SUCC 50MG EXT REL TAB PO SCH (22:43)
[2025-01-03] MEDS: POT PHOSPHATE MONOBASIC W/ SOD TAB PO SCH (23:04)
[2025-01-03] MEDS: GLIMEPIRIDE 2 MG TAB PO SCH (23:04)
[2025-01-03] MEDS: METOPROLOL SUCC 50MG EXT REL TAB PO STA (23:04)
[2025-01-03] MEDS: ASPIRIN 81 MG ECTAB PO SCH (23:04)
[2025-01-04] MEDS: ACETAMINOPHEN 325 MG TAB PO PRN (02:46)
[2025-01-04] MEDS: LACTATED RINGER'S 500 ML IV ONE (03:07)
[2025-01-04] MEDS: CEFEPIME 2000MG 2,000 MG/20 ML SYR IV SCH (05:14)
[2025-01-04 06:37] LABS: Hematocrit (blood only) 33.9 % (42.0-52.0); Hemoglobin 11.3 g/dl (14.0-18.0); Immature Granulocytes # (auto) 0.05 K/uL (0.01-0.20); Immature Granulocytes % (auto) 0.4 %; Mean Corpuscular Hemoglobin 27.6 pg (25.0-34.0); Mean Corpuscular Volume 82.9 fL (80.0-100.0); Platelet Count 197 K/uL (130-400); RDW Standard Deviation 40.5 fL (36.4-46.3); Red Blood Count 4.09 M/uL (4.70-6.10); White Blood Count 12.74 K/ul (4.8-10.8)
[2025-01-04 06:54] LABS: Anion Gap 8.0 (3-11); Calcium 8.9 mg/dl (8.6-10.3); Carbon Dioxide 20.0 mmol/L (21-32); Chloride 107.0 mmol/L (98-107); Potassium 3.7 mmol/L (3.5-5.1); Sodium 135.0 mmol/L (136-145)
[2025-01-04 06:59] LABS: Blood Urea Nitrogen 17.0 mg/dl (6-23); Creatinine Clr Calc Pharmacy 165.2 ml/min; Glucose 94.0 mg/dl (70-99(Fasting))
[2025-01-04] MEDS ORDERED: GLIMEPIRIDE 2 MG TAB PO SCH (08:00)
[2025-01-04] MEDS ORDERED: ASPIRIN 81 MG ECTAB PO SCH (09:00)
[2025-01-04] MEDS ORDERED: POT PHOSPHATE MONOBASIC W/ SOD TAB PO SCH (09:00)
--- NOTE | 2025-01-04 15:25 | Hospitalist Progress Note ---
Date of Service January 04, 2025 Assessment & Plan (1) Cellulitis of left leg: (2) Diabetic foot ulcers: (3) Essential hypertension: (4) Morbid obesity: (5) Type 2 diabetes mellitus: Plan Pt is a 44 y/o with a PMHx significant for T2DM who presents to the hospital c/o recurring cellulitis of LLE. Pt recently d/c for same complaint on 12/08 and completed outpatient course of Linezolid. #Cellulitis of Left Leg -WBC's downtrending -Continue Cefepime & daptomycin; was recommended by ID during last hospital admission for same complaint -HOLD atorvastatin while taking daptomycin -CBC, CMP in AM If no improvement with current abx regimine, consider ID consult. #Diabetic Foot Ulcers - both great toes, bilat -Consulted Podiatry - ok to bear weight in post-op shoe -Follow wound dressing changes per Podiatry recommendation -Pending wound culture of right Hallux #Essential HTN -Continue Lisinopril #Morbid Obesity -BMI >40; significant weight loss encouraged #T2DM -Home Meds: Mounjaro (Held), Glimepiride -Continue Glimepiride -Continue Sliding Scale Insulin coverage Dispo: Continued inpatient stay for IV abx VTE: Low risk, encourage ambulation Admission and Anticipated Discharge Date Admission Date: January 03, 2025 Subjective Pt is a 44 y/o morbidly obese male with a PMHx of T2DM who is currently admitted for LLE cellulitis. Pt has bilateral great toe ulcerations secondary to his T2DM. Pt was sitting in bed in [facility] this AM. Pt notes that the redness has definitely progressed since his admission, but notes that the pain is greatly decreased. He describes the pain to be a mild burning/itching sensation and notes that it's only present when he is moving his leg. Pt was recently hospitalized for the same thing and notes that is last admission was much more painful and irritated. He denies discontinuing his previous antibiotic early. He notes that is skin is often dry and peeling at home. Pt admits to chills and burning sensation of skin on LLE. Pt denies any pain in LLE joints, difficulty with moving, or pain with movement. Physical Exam 2 Physical Exam: General: Morbidly obese male in NAD Skin: LLE is diffusely erythematous, edematous, and hot to touch. Rash extends circumferentially up the leg from the ankle into the inguinal region (See picture below). Small ulceration can be seen at distal aspect of L great toe. Pt notes that R great toe also has ulceration, but notes that it was wrapped and unable to be seen. Heart: RRR no murmurs Lungs: CTA no adventitious sounds Abdomen: Normoactive BS x4 Extremities: Full ROM intact Results & Data Results & Data Vital Signs (Past 12 Hours) Vital Signs Temp Pulse Resp BP Pulse Ox O2 Del Method 01/04/25 07:03 98.8 F 92 H 18 111/72 96 Room Air 01/04/25 05:00 112 H 01/04/25 03:31 100.5 F H Laboratory Results CBC and CMP reviewed PG Care Time/CCT Total # of Minutes Spent Total Time Spent with Patient: Total time spent is greater than 50% in coordination of care (as documented) at patient's floor/unit and/or counseling patient: Coding Level of Care Code 49136 SUB INP/OBS CARE 3/50MIN Diagnoses Cellulitis of left leg L03.116 Diabetic foot ulcers E11.621; L97.509 Essential hypertension I10 Morbid obesity E66.01 Type 2 diabetes mellitus E11.9
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
[2025-01-04] MEDS: DAPTOmycin 850 MG in SYRINGE 0 ML IV SCH (17:20)
[2025-01-04] MEDS: METOPROLOL SUCC 50MG EXT REL TAB PO SCH (21:28)
--- NOTE | 2025-01-05 06:03 | Electrocardiogram Report ---
Test Reason : Blood Pressure : */* mmHG Vent. Rate : 101 BPM Atrial Rate : 101 BPM P-R Int : 158 ms QRS Dur : 90 ms QT Int : 324 ms P-R-T Axes : 36 -1 14 degrees QTcB Int : 420 ms Sinus tachycardia Otherwise normal ECG When compared with ECG of 09-Nov-2022 04:28, No significant change was found Confirmed by Siddharth Alvares ([id number]) on 01/05/2025 6:02:47 AM Referred By: REFERRED SELF Confirmed By: Siddharth Alvares
[2025-01-05 07:51] LABS: Hematocrit (blood only) 32.5 % (42.0-52.0); Hemoglobin 11.1 g/dl (14.0-18.0); Immature Granulocytes # (auto) 0.06 K/uL (0.01-0.20); Immature Granulocytes % (auto) 0.5 %; Mean Corpuscular Hemoglobin 27.8 pg (25.0-34.0); Mean Corpuscular Volume 81.3 fL (80.0-100.0); Platelet Count 216 K/uL (130-400); RDW Standard Deviation 38.6 fL (36.4-46.3); Red Blood Count 4.00 M/uL (4.70-6.10); White Blood Count 11.33 K/ul (4.8-10.8)
[2025-01-05 08:06] LABS: Anion Gap 9.0 (3-11); Blood Urea Nitrogen 16.0 mg/dl (6-23); Calcium 9.1 mg/dl (8.6-10.3); Carbon Dioxide 22.0 mmol/L (21-32); Chloride 104.0 mmol/L (98-107); Creatinine Clr Calc Pharmacy 195.9 ml/min; Glucose 145.0 mg/dl (70-99(Fasting)); Potassium 3.8 mmol/L (3.5-5.1); Sodium 135.0 mmol/L (136-145)
--- NOTE | 2025-01-05 12:16 | Hospitalist Progress Note ---
Date of Service January 05, 2025 Assessment & Plan (1) Cellulitis of left leg: (2) Diabetic foot ulcers: (3) Essential hypertension: (4) Morbid obesity: (5) Type 2 diabetes mellitus: Plan Pt is a 44 y/o with a PMHx significant for T2DM, Diabetic foot wounds, HTN, and morbid obesity who presents to the hospital c/o recurring cellulitis of LLE. Pt recently d/c for same complaint on 12/08 and completed outpatient course of Linezolid. #Cellulitis of Left Leg -improving, WBC's downtrending, afebrile, no growth in blood cultures, wound culture collected today and pending -Arterial Doppler to assess blood-flow of LLE -Continue Cefepime & daptomycin; was recommended by ID during last hospital admission for same complaint -HOLD atorvastatin while taking daptomycin -Follow blood cultures and wound culture -CBC, BMP in AM If no improvement with current abx regimen, consider ID consult. #Diabetic Foot Ulcers - both great toes, bilat -Consulted Podiatry - Planned debridement on 01/05; pt ok to bear weight in post-op shoes -Follow wound dressing changes per Podiatry recommendation -Pending wound culture of right Hallux #Essential HTN/nonobstructive CAD/history of nonischemic cardiomyopathy-BPs controlled; diagnosed 2022 with nonischemic cardiomyopathy and borderline occlusive/branch vessel CAD. Echo 11/06 with LVEF 45-50%, no wall motion abnormalities, moderate LVH. -Continue Lisinopril, Toprol XL, aspirin - Statin on hold while on daptomycin #Morbid Obesity -BMI >40; significant weight loss encouraged #T2DM -most recent HgbA1c 9.7% in 11/2024 -Home Meds: Mounjaro (Held), Glimepiride (Held) -Continue Sliding Scale Insulin coverage Dispo: Continued inpatient stay for IV abx VTE: Lovenox 40mg SQ, encourage ambulation Admission and Anticipated Discharge Date Admission Date: January 03, 2025 Supervising Physician Co-Signing Physician Notes MAYANK Supervision Note: I did not personally see or examine the patient today, but I verified all oseguera points of MAYANK Wynn's assessment and plan with the following exceptions/additions: None Subjective Pt is a 44 y/o with a PMHx significant for T2DM, Diabetic foot wounds, HTN, and morbid obesity who presents to the hospital c/o recurring cellulitis of LLE. Pt was d/c on Linezolid on 12/08 for the same complaint. Pt states that his pain has continued to improve. Pt states that he feels that the redness in the mid- section of his rash has improved, but is concerned that the redness is persisting in his upper thigh. Pt expresses frustration that this is his third time in the past year getting cellulitis in the LLE and is concerned that there will be another recurrence following d/c. Pt had chills last evening. Pt denies joint pain, pain with movement, difficulty ambulating, loss of appetite. Review of Systems Review of Systems: All systems reviewed & are unremarkable except as noted in Subjective Physical Exam Physical Exam: General: Pt is a 44 y/o morbidly obese male in NAD. VS: reviewed as noted Skin: LLE is diffusely erythematous, edematous, and warm to touch. Rash extends circumferentially up the leg from the ankle into the inguinal region. Redness has decreased in severity compared to 01/04 with area surrounding knee becoming a pale purple/red. Ulcerations of great toes b/l dressed, per podiatry, and not directly visualized. Skin is otherwise warm/dry and intact; no other lesions noted. Neck: Trachea midline, no lymphadenopathy Respiratory: CTA bilat, no adventitious sounds noted. Chest expansion is full and symmetrical Cardio: RRR no murmurs Abdomen: Round, [scars?], normoactive BS x4, nontender to palpation MSK: FROM of extremities, no deformities Neuro: A&Ox3, cooperative Results & Data Results & Data Vital Signs (Past 12 Hours) Vital Signs Temp Pulse Resp BP Pulse Ox O2 Del Method 01/05/25 07:45 98.4 F 101 H 16 126/80 95 Room Air Laboratory Results Reviewed CBC, CMP, and Blood Cultures at 24hrs (preliminary results) PG Care Time/CCT Total # of Minutes Spent Total Time Spent with Patient: Total time spent is greater than 50% in coordination of care (as documented) at patient's floor/unit and/or counseling patient: Coding Level of Care Code 06555 SUB INP/OBS CARE 3/50MIN Diagnoses Cellulitis of left leg L03.116 Diabetic foot ulcers E11.621; L97.509 Essential hypertension I10 Morbid obesity E66.01 Type 2 diabetes mellitus E11.9
--- NOTE | 2025-01-05 23:20 | Podiatry Progress Note ---
Date of Service January 05, 2025 Assessment & Plan (1) Diabetic ulcer of right great toe: Plan: Bilateral hallux wounds with associated cellulitis: - Patient okay to weight-bear in postop shoe bilateral for short distance and transfer. - Continue once daily dressing change with Aquacel Ag and a dry sterile dressing bilateral hallux wound - Wound culture pending. - IV daptomycin and cefepime initiated in emergency department. - Bedside debridement bilateral hallux wound as detailed in procedure note below. Surgical Excisional Debridement: Indication:Removal of necrotic tissue to promote healing Pre-op diagnosis: Diabetic ulcer bilateral hallux Post-op diagnosis: Same Procedure: Surgical excisional debridement diabetic ulcer bilateral hallux Surgeon: Evelio Ferris DPM Anesthesia: None Bleeding:Minimal Disposition: Tolerated well Procedure: Informed consent obtained, Time Out taken. Patient understands and agrees to procedure. Excisional debridement was carried out of bilateral hallux ulcer consisting of hyperkeratotic, slough, fibrotic and subcutaneous tissue was carried out utilizing a curette and 15 blade. Anesthesia-none. Patient tolerated the procedure well. Bleeding-minimal. Controlled with-direct pressure. Post-debridement measurements: Right hallux: 1.5 x 1.0 x 0.2. Left hallux 1.0 x 1.2 x 0.3 cm. A total of 2.7 cm2 were debrided. (2) Diabetic ulcer of left great toe: Admission and Anticipated Discharge Date Admission Date: January 03, 2025 Subjective Patient seen resting comfortably in hospital bed with his mother present at bedside over the lunch hour today. Denies pain in the bilateral foot. Patient admits she has been picking at the wounds on his feet and removing dry callused skin from the wound periphery. Denies pain in the bilateral foot. Reports significant reduction in erythema to the left leg over the past 24 hours. He consents to bedside debridement of the bilateral hallux wound. Review of Systems Review of Systems: Denies nausea, vomiting, fever, chills, shortness of breath, chest pain. Denies pain in the bilateral foot. Physical Exam Physical Exam: Const: Appears well developed and well nourished. No signs of acute distress present. Obese CV: Extremities: No cyanosis or edema. Capillary refill time is less than 2 seconds all digits of the bilateral foot. Posterior tibial and dorsalis pedis pulses are palpable bilateral. Lymph: No palpable or visible regional lymphadenopathy. Neuro: Sensation intact to light touch in all areas of the foot and ankle. Psych: Mood/Affect: Mood is normal. Affect is normal. Cognition: Orientation is intact to person, place and time. Focused lower extremity musculoskeletal exam: Leg: Persistent but significantly diminished erythema to the left lower extremity. Ankles: Normal to inspection and palpation. No tenderness bilaterally. Motor strength is intact. Range of motion pain-free and unlimited. Feet: Diabetic ulcer plantar left hallux: Over the past 24 hours patient has mechanically removed hyperkeratotic blood-tinged tissue from the left hallux exposing a somewhat macerated piece of epithelial tissue. Following debridement at bedside today there is a 1.0 x 1.2 x 0. 3 cm ulceration to the plantar medial aspect of the hallux. Wound does not probe or track in any direction. Scant purulent drainage expressed on debridement of macerated epithelial tissue exposing underlying wound. Wound bed is mixed subcutaneous adipose and granular tissue. Diabetic ulcer to the right hallux measures 1.5 x 1 x 0.2 cm. Mild periwound erythema and edema limited to the right hallux. No lymphangitis or streaking. Scant opaque drainage to the wound bed. Wound bed is mixed fibrotic granular tissue surrounding blood-tinged hyperkeratotic tissue. Slight undermining extending medially towards the plantar toe. Wound does not tunnel or track. Wound does not probe to bone tendon or joint at this time. Results & Data Results & Data Vital Signs (Past 12 Hours) Vital Signs Temp Pulse Resp BP BP Pulse Ox O2 Del Method 01/05/25 22:31 36.7 C 120 H 24 137/83 97 Room Air 01/05/25 20:02 36.6 C 91 H 18 116/75 94 Room Air 01/05/25 15:41 36.7 C 84 16 116/77 96 Room Air Coding Level of Care Code 68799 SUB INP/OBS CARE 04/10MIN Diagnoses Diabetic ulcer of right great toe E11.621; L97.519 Diabetic ulcer of left great toe E11.621; L97.529 CPT Codes Debride Skin/Tissue - 93853 ([id number])
[2025-01-06 07:39] LABS: Hematocrit (blood only) 33.6 % (42.0-52.0); Hemoglobin 11.5 g/dl (14.0-18.0); Immature Granulocytes # (auto) 0.07 K/uL (0.01-0.20); Immature Granulocytes % (auto) 0.8 %; Mean Corpuscular Hemoglobin 28.0 pg (25.0-34.0); Mean Corpuscular Volume 82.0 fL (80.0-100.0); Platelet Count 246 K/uL (130-400); RDW Standard Deviation 38.6 fL (36.4-46.3); Red Blood Count 4.10 M/uL (4.70-6.10); White Blood Count 9.02 K/ul (4.8-10.8)
[2025-01-06 07:56] LABS: Anion Gap 9.0 (3-11); Blood Urea Nitrogen 19.0 mg/dl (6-23); Calcium 9.3 mg/dl (8.6-10.3); Carbon Dioxide 22.0 mmol/L (21-32); Chloride 103.0 mmol/L (98-107); Creatinine Clr Calc Pharmacy 195.9 ml/min; Glucose 140.0 mg/dl (70-99(Fasting)); Potassium 3.9 mmol/L (3.5-5.1); Sodium 134.0 mmol/L (136-145)
[2025-01-06] MEDS: ENOXAPARIN INJ 40 MG/0.4 ML SYR SQ SCH (08:47)
--- NOTE | 2025-01-06 10:15 | Hospitalist Progress Note ---
Date of Service January 06, 2025 Assessment & Plan (1) Cellulitis of left leg: (2) Diabetic foot ulcers: (3) Essential hypertension: (4) Morbid obesity: (5) Type 2 diabetes mellitus: Plan Pt is a 44 y/o with a PMHx significant for T2DM, Diabetic foot wounds, HTN, and morbid obesity who presents to the hospital c/o recurring cellulitis of LLE. Pt recently d/c for same complaint on 12/08 and completed outpatient course of Linezolid. #Cellulitis of Left Leg -improving, WILBERTO on 12/06/24 with LLE 1.26 and RLE 1.04, WBC's downtrending, afebrile, no growth in blood cultures, wound culture collected 01/05 and pending -Continue Cefepime & daptomycin; was recommended by ID during last hospital admission for same complaint -HOLD atorvastatin while taking daptomycin -Follow wound culture -CBC, BMP in AM If no improvement with current abx regimen, consider ID consult. #Diabetic Foot Ulcers - both great toes, bilat; debridement by podiatry on 01/05 -Consulted Podiatry - pt is ok to bear weight in post-op shoes -Follow wound dressing changes per Podiatry recommendation -Pending wound culture of right Hallux #HTN/nonobstructive CAD/history of nonischemic cardiomyopathy-BPs controlled; diagnosed 2022 with nonischemic cardiomyopathy and borderline occlusive/branch vessel CAD. Echo 11/06 with LVEF 45-50%, no wall motion abnormalities, moderate LVH. -Continue Lisinopril, Toprol XL, aspirin -Statin on hold while on daptomycin #Morbid Obesity -BMI >40; significant weight loss encouraged #T2DM -most recent HgbA1c 9.7% in 11/2024 -Home Meds: Mounjaro (Held), Glimepiride -Continue Sliding Scale Insulin coverage, glimepiride at pt's request Dispo: Continued inpatient stay for IV abx VTE: Pt refuses VTE prophylaxis, encourage ambulation Admission and Anticipated Discharge Date Admission Date: January 03, 2025 Supervising Physician Co-Signing Physician Notes MAYANK Supervision Note: I did not personally see or examine the patient today, but I verified all oseguera points of MAYANK Wynn's assessment and plan with the following exceptions/additions: None Subjective Pt is a 44 y/o with a PMHx significant for T2DM, Diabetic foot wounds, HTN, and morbid obesity who presents to the hospital c/o recurring cellulitis of LLE. Pt recently d/c for same complaint on 12/08 and completed outpatient course of Linezolid. Pt was in bed this AM in [facility]. Pt states that he continues to feel a "light burning sensation" in his LLE where the cellulitis is present, but notes that it is continuing to improve. Pt states the he often goes for walks in the late hours of the night and denies any difficulty with ambulation. He notes that podiatry was able to debride his B/L great toe ulcerations and denies any pain or difficulty walking after wards. Pt denies any chills, sweats, CP, SOB, loss of appetite, difficulty sleeping, and abd discomfort. Pt expresses concern about length of hospital stay d/t having unstable insurance. Pt refused the following: -Lovenox for VTE prophylaxis; states that he doesn't feel it is necessary because he is ambulating on his own. -Arterial US of the LLE; states that he doesn't feel it is necessary d/t previous WILBERTO assessment. -Morning dose of insulin; did not want it, expressed that he doesn't use insulin at home and prefers to use his Glimepiride for BS management. Review of Systems 2 Review of Systems: All systems reviewed & are unremarkable except as noted in Subjective Physical Exam 2 Physical Exam: General: Pt is a 44 y/o morbidly obese male in NAD. VS: reviewed Skin: LLE is diffusely erythematous, edematous, and warm to touch. Rash extends circumferentially up the leg from the ankle into the inguinal region. Redness has decreased in severity when compared to 01/04 (see image below); with area surrounding knee becoming a pale purple/red. Ulcerations of great toes b/l dressed, per podiatry, and not directly visualized. Skin is otherwise warm/dry and intact; no other lesions noted. Respiratory: CTA bilat, no adventitious sounds noted. Chest expansion is full and symmetrical Cardio: RRR no murmurs, pedal pulses difficult to palpate Abdomen: normoactive BS x4, nontender to palpation MSK: FROM of extremities, no deformities, no difficulty with ambulation Neuro: A&Ox3 Results & Data Results & Data Vital Signs (Past 12 Hours) Vital Signs Temp Pulse Resp BP BP Pulse Ox O2 Del Method 01/06/25 07:16 98.1 F 92 H 16 117/80 94 Room Air 01/05/25 23:21 Room Air 01/05/25 22:31 98.1 F 120 H 24 137/83 97 Room Air Laboratory Results Reviewed CBC, BMP, and Cultures PG Care Time/CCT Total # of Minutes Spent Total Time Spent with Patient: Total time spent is greater than 50% in coordination of care (as documented) at patient's floor/unit and/or counseling patient: Coding Level of Care Code 58618 SUB INP/OBS CARE 2/35MIN Diagnoses Cellulitis of left leg L03.116 Diabetic foot ulcers E11.621; L97.509 Essential hypertension I10 Morbid obesity E66.01 Type 2 diabetes mellitus E11.9
--- NOTE | 2025-01-07 09:48 | Hospitalist Progress Note ---
Date of Service January 07, 2025 Assessment & Plan (1) Cellulitis of left leg: (2) Diabetic foot ulcers: (3) Essential hypertension: (4) Morbid obesity: (5) Type 2 diabetes mellitus: Plan Pt is a 44 y/o with a PMHx significant for T2DM, Diabetic foot wounds, HTN, and morbid obesity who presents to the hospital c/o recurring cellulitis of LLE. Pt recently d/c for same complaint on 12/08 and completed outpatient course of Linezolid. #Cellulitis of Left Leg -improving, WILBERTO on 12/06/24 with LLE 1.26 and RLE 1.04, WBC's downtrending, afebrile, no growth in blood cultures, wound culture collected 01/05 and pending -Continue Daptomycin for staph and strep coverage -Discontinue Cefepime as no history of Pseudomonas -HOLD atorvastatin while taking daptomycin -Ammonium Lactate 12% TID for dry skin -Follow wound culture -CBC, BMP in AM Suspect that recurrent cellulitis is from peeling of skin/aggressive brushing of skin. Discussed with patient that he should refrain from peeling his skin &/or having family members peel his skin as well. With continued improvement: consider amoxicillin and doxycycline upon discharge #Diabetic Foot Ulcers - both great toes, bilat; debridement by podiatry on 01/05 -Consulted Podiatry - pt is ok to bear weight in post-op shoes -Follow wound dressing changes per Podiatry recommendation -Pending wound culture of right Hallux #HTN/nonobstructive CAD/history of nonischemic cardiomyopathy-BPs controlled; diagnosed 2022 with nonischemic cardiomyopathy and borderline occlusive/branch vessel CAD. Echo 11/06 with LVEF 45-50%, no wall motion abnormalities, moderate LVH. -Continue Lisinopril, Toprol XL, aspirin -Statin on hold while on daptomycin #Morbid Obesity -BMI >40; significant weight loss encouraged #T2DM -most recent HgbA1c 9.7% in 11/2024 -Home Meds: Mounjaro (Held), Glimepiride -Continue Sliding Scale Insulin coverage, glimepiride at pt's request Dispo: Continued inpatient stay for IV abx VTE: Pt refuses VTE prophylaxis, encourage ambulation Admission and Anticipated Discharge Date Admission Date: January 03, 2025 Supervising Physician Co-Signing Physician Notes PA Supervision Note: I did not personally see or examine the patient today, but I verified all oseguera points of MAYANK Wynn's assessment and plan with the following exceptions/additions: None Subjective Pt is a 44 y/o with a PMHx significant for T2DM, Diabetic foot wounds, HTN, and morbid obesity who presents to the hospital c/o recurring cellulitis of LLE. Pt recently d/c for same complaint on 12/08 and completed outpatient course of Linezolid. Pt was in bed this AM in NAD. Pt notes that this morning the pain has "pretty much resolved" and that the redness has decreased significantly. It was noted that patient frequently peels/scrubs off dry-skin on LLE and often has family members help him to do this. Discussed with patient that continuously peeling skin off could be re-introducing bacteria and may be contributing to his recurring cellulitis and the importance of keeping the wound clean and dry. Pt asked if he could leave the hospital to pay bills and take care of "legal things" and come back for his next dose of IV antibiotics; explained that leaving would be AMA and he would not be able to return to his inpatient bed. Pt denies chills, sweats, CP, SOB, abd pain, N/V, joint pain (kale over affected area), difficulty ambulating, and pruritis. Pt refused the following: -Lovenox for VTE prophylaxis on 01/06; states that he doesn't feel it is necessary because he is ambulating on his own. Review of Systems 2 Review of Systems: All systems reviewed & are unremarkable except as noted in Subjective Physical Exam 2 Physical Exam: General: Pt is a 44 y/o morbidly obese male in NAD. VS: reviewed Skin: LLE is, diffusely, erythematous, edematous, and warm to touch. Rash extends circumferentially up the leg from the ankle into the inguinal region. Redness has decreased to a pale red from the inguinal region to the area distal to the knee. The distal aspect of the LLE is still red, but less warm to touch and visually improved from 01/06 (see image below). Area of removed superficial layer of skin can be seen at the back of the calf where pt brushed skin away. Ulcerations of great toes b/l dressed, per podiatry, and not directly visualized. Skin is otherwise warm/dry and intact; no other lesions noted. Respiratory: CTA bilat, no adventitious sounds noted. Chest expansion is full and symmetrical Cardio: RRR no murmurs Abdomen: normoactive BS x4, nontender to palpation MSK: FROM of extremities, no deformities, no difficulty with ambulation Neuro: A&Ox3, cooperative Results & Data Results & Data Vital Signs (Past 12 Hours) Vital Signs Temp Pulse Resp BP Pulse Ox O2 Del Method 01/07/25 07:46 98.1 F 99 H 16 128/81 95 Room Air 01/07/25 00:16 98.1 F 95 H 19 120/80 95 Room Air Laboratory Results Reviewed preliminary culture of right foot wound PG Care Time/CCT Total # of Minutes Spent Total Time Spent with Patient: Total time spent is greater than 50% in coordination of care (as documented) at patient's floor/unit and/or counseling patient: Coding Level of Care Code 50522 SUB INP/OBS CARE 2/35MIN Diagnoses Cellulitis of left leg L03.116 Diabetic foot ulcers E11.621; L97.509 Essential hypertension I10 Morbid obesity E66.01 Type 2 diabetes mellitus E11.9
[2025-01-07] MEDS: AMMONIUM LACTATE 12% LOTION 225 GM BTL EXT SCH (13:22)
[2025-01-08 06:54] LABS: Hematocrit (blood only) 37.2 % (42.0-52.0); Hemoglobin 12.9 g/dl (14.0-18.0); Immature Granulocytes # (auto) 0.21 K/uL (0.01-0.20); Immature Granulocytes % (auto) 2.0 %; Mean Corpuscular Hemoglobin 28.4 pg (25.0-34.0); Mean Corpuscular Volume 81.8 fL (80.0-100.0); Platelet Count 346 K/uL (130-400); RDW Standard Deviation 38.3 fL (36.4-46.3); Red Blood Count 4.55 M/uL (4.70-6.10); White Blood Count 10.46 K/ul (4.8-10.8)
[2025-01-08 07:17] LABS: Anion Gap 9.0 (3-11); Blood Urea Nitrogen 20.0 mg/dl (6-23); Calcium 9.6 mg/dl (8.6-10.3); Carbon Dioxide 26.0 mmol/L (21-32); Chloride 100.0 mmol/L (98-107); Creatinine Clr Calc Pharmacy 203.0 ml/min; Glucose 128.0 mg/dl (70-99(Fasting)); Potassium 3.7 mmol/L (3.5-5.1); Sodium 135.0 mmol/L (136-145)
[2025-01-08] MEDS: DAPTOmycin 850 MG in SYRINGE 0 ML IV ONE (13:28)
--- NOTE | 2025-01-08 14:44 | Discharge Summary ---
Discharge Summary Date of Service January 08, 2025 Principal Dx & Hospital Course #1 = Principal Diagnosis (1) Cellulitis of left leg: (2) Diabetic foot ulcers: (3) Essential hypertension: (4) Morbid obesity: (5) Type 2 diabetes mellitus: Plan Pt is a 44 y/o with a PMHx significant for T2DM, Diabetic foot wounds, HTN, and morbid obesity who presents to the hospital c/o recurring cellulitis of LLE. Pt recently d/c for same complaint on 12/08 and completed outpatient course of Linezolid. #Cellulitis of Left Leg -improving, WILBERTO on 12/06/24 with LLE 1.26 and RLE 1.04, WBC's downtrending, afebrile, no growth in blood cultures Wound culture collected 01/05 grew strep epidermidis; spoke with microbiology and it is suspected contaminant; no sensitivities to follow Patient received daptomycin 800 mg IV q24h in the hospital Atorvastatin held while on daptomycin Patient instructed to hold atorvastatin until the evening of 01/09 Will plan to send patient home on Ammonium Lactate 12% TID for dry skin Amoxicillin 500 mg p.o. BID and doxycycline 100 mg p.o. BID x 7 days on discharge Suspect that recurrent cellulitis is from peeling of skin/aggressive brushing of skin. Discussed with patient that he should refrain from peeling his skin &/or having family members peel his skin as well #Diabetic Foot Ulcers - both great toes, bilat; debridement by podiatry on 01/05 Consulted Podiatry - pt is ok to bear weight in post-op shoes Follow wound dressing changes per Podiatry recommendation Pending wound culture of right Hallux #HTN/nonobstructive CAD/history of nonischemic cardiomyopathy-BPs controlled; diagnosed 2022 with nonischemic cardiomyopathy and borderline occlusive/branch vessel CAD. Echo 11/06 with LVEF 45-50%, no wall motion abnormalities, moderate LVH. Continue Lisinopril, Toprol XL, aspirin Statin on hold while on daptomycin #Morbid Obesity -BMI >40; significant weight loss encouraged #T2DM -most recent HgbA1c 9.7% in 11/2024 Home Meds: Mounjaro (Held inpatient), Glimepiride Continue Sliding Scale Insulin coverage, glimepiride at pt's request Date of discharge 01/08: Patient is mildly hypertensive at 150/79; vitals otherwise stable. Patient reports he does not have any pain in his left lower extremity. Originally, prior to coming to hospital, he described as a "brush burn"-like pain. However the swelling and redness have largely subsided on IV daptomycin. Patient is hoping to go home today if possible. He reports that his fever-like symptoms have resolved. No known drug allergies other than "sink based" derivatives. ROS: Patient denies fevers (resolved), chest pain, SOB, abdominal pain, N/V/D, numbness or tingling going down the left leg, or pain in the left lower extremity. Dispo: Discharge home Admission HPI Per Admitting Provider 44-year-old morbidly obese diabetic white male with type 2 diabetes. He had previous hospitalization for left lower extremity cellulitis which has recurred. He has ulcerations at the bases of both great toes on the plantar aspect without obvious infection at this time but could be the entry point for current left lower extremity infection. Podiatry consultation requested. He has been treated with daptomycin and cefepime in the ED which will come continue. Statin therapy will be held while he is on daptomycin. Vital signs are stable. Admission Exam Per Admitting Provider General-alert and oriented x3, no fever, no chills. Obese HEENT-head atraumatic and normocephalic, pupils equal and reactive to light, extraocular muscles intact Neck-no lymphadenopathy or thyromegaly, trachea midline Chest-clear to auscultation. No rales, wheezing or rhonchi Cardiac-regular rate and rhythm, normal S1 and S2 Abdomen-normal bowel sounds, no hepatosplenomegaly Extremities-extensive erythema left lower extremity below the knee. Calluses with ulceration bilateral great toes without overt drainage Neuro-cranial nerves II through XII intact, motor and sensory function within normal limits, strength symmetrical, no focal deficits Psych-normal affect, normal mood Photo taken on 01/04 (one day after admission): Discharge Exam General: no acute distress; non-toxic appearing; cooperative; SpO2 97% on RA HEENT: normocephalic, atraumatic; PERRLA; vision and hearing intact Neck: supple; trachea midline Skin: warm, dry without signs of tenting; no cyanosis; no rashes, bruising, lesions, or erythema noted CV: chest wall NTP; RRR; S1/S2 normal; no murmurs/rubs/gallops; pulses intact and symmetric at radial, DP, and PT Lungs: no acute respiratory distress; symmetrical chest wall expansion; clear breath sounds across all lung beverly w/o adventitious sounds; no wheezing ABD: Soft, NTP; BS present; no rebound/guarding; no distention MSK: no tics or fasciculations; nonpitting edema in the lower extremity bilaterally LLE: Left lower extremity is edematous /mildly hot to touch; however, erythema is receding from prior markings (see photo below) Neuro: A&Ox3; normal mood and affect; fluent speech; sensation intact and symmetric in the LEs b/l Photo taken on day of discharge 01/08: Discharge Plan Discharge Items Patient Disposition: Home - Self-Care Reason For Visit: LLE CELLULITIS Discharge Diagnosis: Left lower extremity cellulitis Condition on Discharge: Fair Activity: Resume your previous activity Non-emergency contact: Primary Care Provider Call non-emergency contact if: you have any medication questions, your symptoms worsen, your pain is not controlled and you have a fever Follow-up/Referrals: Violet Hdz MD [Primary Care Provider] - Diet: Carb Consistent or DM2 Addtl Attending Provider Instructions: You are hospitalized at [facility] from 01/03 for 01/08 for a left lower extremity cellulitis. You were treated with an IV antibiotic called daptomycin while in the hospital. At time of discharge, your vitals are all stable, and you did not have an elevated white blood cell count to indicate signs of severe infection. Your wound culture did not grow out bacteria with resistance. For these reasons, we feel that you are safe to return home on oral antibiotics at this time. New prescriptions on discharge: Amoxicillin 500 mg twice daily x 7 days Doxycycline 100 mg twice daily x 7 days We also plan to send you home with ammonium lactate 12% lotion to be applied to your lower extremity up to 3 times daily as needed for dryness/peeling. This can be obtained [id number]. You were instructed prior to discharge to hold atorvastatin for 24 hours after discharge, as you received your final dose of IV daptomycin while in the hospital. Okay to resume atorvastatin on the evening of 01/09. Please plan to follow-up with your PCP in the next 7 to 10 days for a transitional care appointment. If you develop any new or worsening symptoms, such as fever, chills, severe left leg pain, or increased redness or swelling in the left lower extremity, please return to the emergency department immediately. It was a pleasure take care of you. Please reach out with any questions or concerns. Sincerely, The Hospital medicine team at [facility] Pending Studies at Discharge: No Stand-Alone Forms: My [facility] Medications and DC Order Prescriptions: New metoprolol succinate 50 mg Tablet Extended Release 24 Hr 100 mg PO QPM Qty: 0 0RF lisinopril 20 mg Tablet 20 mg PO QPM Qty: 0 0RF aspirin 81 mg Tablet,Delayed Release (Dr/Ec) 81 mg PO QPM Qty: 0 0RF Phospha 250 Neutral 250 mg Tablet 2 tab PO QPM Qty: 0 0RF amoxicillin 500 mg capsule 500 mg PO BID 7 Days Qty: 14 0RF Rx Instructions: Take 1 capsule by mouth twice daily x 7 days doxycycline monohydrate 100 mg capsule 100 mg PO BID 7 Days Qty: 14 0RF Rx Instructions: Take 1 capsule by mouth twice daily x 7 days glimepiride 2 mg Tablet 8 mg PO QPM Qty: 0 0RF Continued (DME) FreeStyle Yulia 3 Plus Sensor Device See Rx Instructions .Route Qty: 2 6RF Rx Instructions: Change sensor every 15 days (DME) FreeStyle Yulia 3 Central Misc See Rx Instructions .Route Qty: 1 0RF Rx Instructions: Scan 3 times daily and as needed acetaminophen [Tylenol] 325 mg Tablet 650 mg PO QID PRN (Reason: Pain) naproxen sodium 220 mg Tablet 440 mg PO BID PRN (Reason: Pain) ibuprofen 200 mg Tablet 400 mg PO Q6H PRN (Reason: Pain) metoprolol succinate 50 mg tablet extended release 24 hr 100 mg PO QPM aspirin 81 mg tablet,delayed release (DR/EC) 81 mg PO QPM glimepiride 4 mg tablet 8 mg PO QPM lisinopril 20 mg tablet 20 mg PO QPM K-Phos Original 500 mg tablet,soluble 500 mg PO QPM tirzepatide 7.5 mg/0.5 mL pen injector 7.5 mg subcut WK Rx Instructions: sundays Held atorvastatin 40 mg tablet 40 mg PO QPM Hold Instructions: Resume on 01/09/25. Hold for 24 hours after taking IV daptomycin; resume on evening of 01/09 Discharge Orders: Discharge Order (Routine); Ordered 01/08/25 Ordered By: Raheel Gunderson Admission Data Admit Date/Time: 01/03/25 16:37 Attending Provider: Norbert Gordon Admit Provider: Omid Gotti Primary Care Provider: Violet Hdz Other Providers: Omid Gotti; Evelio Ferris Other Interventions: Discharge Summary Assessment (RN) Last Done: 01/08/25 15:31 Hospital Stay Data Consultations 01/03/25 16:07 ED Decision to Admit Stat 01/03/25 21:33 Consult Podiatry Routine Discharge Instructions Given to Patient (Per Discharging Provider) You are hospitalized at [facility] from 01/03 for 01/08 for a left lower extremity cellulitis. You were treated with an IV antibiotic called daptomycin while in the hospital. At time of discharge, your vitals are all stable, and you did not have an elevated white blood cell count to indicate signs of severe infection. Your wound culture did not grow out bacteria with resistance. For these reasons, we feel that you are safe to return home on oral antibiotics at this time. New prescriptions on discharge: Amoxicillin 500 mg twice daily x 7 days Doxycycline 100 mg twice daily x 7 days We also plan to send you home with ammonium lactate 12% lotion to be applied to your lower extremity up to 3 times daily as needed for dryness/peeling. This can be obtained [id number]. You were instructed prior to discharge to hold atorvastatin for 24 hours after discharge, as you received your final dose of IV daptomycin while in the hospital. Okay to resume atorvastatin on the evening of 01/09. Please plan to follow-up with your PCP in the next 7 to 10 days for a transitional care appointment. If you develop any new or worsening symptoms, such as fever, chills, severe left leg pain, or increased redness or swelling in the left lower extremity, please return to the emergency department immediately. It was a pleasure take care of you. Please reach out with any questions or concerns. Sincerely, The Hospital medicine team at [facility] Total Time Total Time Spent Total Time Spent (In Minutes): 25 Coding Level of Care Code 59914 IN/OBS DISCH 30 MIN/LESS Diagnoses Cellulitis of left leg L03.116 Diabetic foot ulcers E11.621; L97.509 Essential hypertension I10 Morbid obesity E66.01 Type 2 diabetes mellitus E11.9
[2025-01-08 15:02] VITALS: BP 150/79; PULSE 96; RESP 17; TEMP 98.1; O2SAT 97
== END 2025-01-08 17:36 | disposition home or self-care (01) | DRG 571 ==
LOC: ED 14:08 → 3N 16:37 → SUATTDRO 16:37 → 3N 20:10

== ENCOUNTER 2025-02-08 11:16 | Inpatient (IN) ==
--- NOTE | 2025-02-08 12:52 | XRay Report ---
XR tibia fibula LT 2V CLINICAL HISTORY: left leg wound; r/o free air COMPARISON: None FINDINGS: No acute fracture or dislocation seen at the left tibia or fibula. There are mild degenera tive changes at the left knee and left ankle. There are chronic calcifications adjacent to the distal fibula and the medial malleolus consistent with sequela of old injury. No gross soft tissue gas seen at the lower leg. No evidence of osteomyelitis. IMPRESSION: No acute osseous findings seen. ACT 112: Negative or not required by law. Electronically signed by: Arslan Fermin M.D. 02/08/2025 12:51 PM
[2025-02-08 13:13] LABS: Hematocrit (blood only) 35.6 % (42.0-52.0); Hemoglobin 12.3 g/dL (14.0-18.0); Immature Granulocytes # (auto) 0.06 K/uL (0.01-0.20); Immature Granulocytes % (auto) 0.6 %; Mean Corpuscular Hemoglobin 28.1 pg (25.0-34.0); Mean Corpuscular Volume 81.3 fL (80.0-100.0); Platelet Count 272 K/uL (130-400); RDW Standard Deviation 39.0 fL (36.4-46.3); Red Blood Count 4.38 M/uL (4.70-6.10); White Blood Count 10.77 K/ul (4.8-10.8)
[2025-02-08 13:20] LABS: Alanine Aminotransferase 8 U/L (7-52); Albumin Globulin Ratio 0.8 (0.9-2); Albumin Level 3.3 gm/dl (3.4-5.0); Alkaline Phosphatase 87 U/L (34-104); Anion Gap 10 (3-11); Bilirubin,Total 0.4 mg/dl (0.2-1.0); Blood Urea Nitrogen 24 mg/dl (6-23); Calcium 8.9 mg/dl (8.6-10.3); Carbon Dioxide 21 mmol/L (21-32); Chloride 100 mmol/L (98-107); Globulin 4.4 gm/dl (2.5-4.0); Glucose 387 mg/dl (70-99(Fasting)); Potassium 4.2 mmol/L (3.5-5.1); Sodium 131 mmol/L (136-145); Total Protein 7.7 gm/dl (6.0-8.3)
[2025-02-08 13:44] LABS: INR 1.1 (0.9-1.1); Prothrombin Time 11.4 Seconds (9.0-12.0)
[2025-02-08] MEDS ORDERED: VANCOMYCIN CONSULT ACTIVE PRN (14:10)
[2025-02-08] MEDS: cefTRIAXone SODIUM 2,000 MG/50 ML BAG IV STA (14:41)
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
--- NOTE | 2025-02-08 15:03 | Ultrasound Report ---
US soft tissue ext ltd CLINICAL HISTORY: LLE wounds; r/o abscess COMPARISON STUDY: None FINDINGS: There is diffuse soft tissue edema in the region of clinical concern at the left lower leg. At the mid to distal anterior lower leg there is a 1.6 cm lobulated predominantly hypoechoic mixed e chogenicity finding in the subcutaneous fatty tissues which could represent small developing abscess. IMPRESSION: Possible small developing subcutaneous abscess at the left lower leg. ACT 112: Negative or not required by law. Electronically signed by: Arslan Fermin M.D. 02/08/2025 3:02 PM
[2025-02-08] MEDS: VANCOMYCIN HCL 2,750 MG in SODIUM CHLORIDE 0.9% 500 ML IV ONE (15:31)
[2025-02-08] MEDS ORDERED: GLUCOSE 10 TAB/TUBE PO PRN (15:32)
[2025-02-08] MEDS ORDERED: DEXTROSE 50% 50 ML SYRINGE IV PRN (15:32)
[2025-02-08] MEDS ORDERED: GLUCAGON FOR INJ 1 MG VIAL SQ PRN (15:32)
[2025-02-08] MEDS ORDERED: GLUCOSE 40% GEL 15 GM TUBE PO PRN (15:32)
[2025-02-08] MEDS ORDERED: CARBOHYDRATES FOR HYPOGLYCEMIA PO PRN (15:32)
[2025-02-08] MEDS ORDERED: PHARMACY GLYCEMIC MGMT CONSULT PRN (15:32)
[2025-02-08] MEDS ORDERED: POLYETHYLENE (MIRALAX) 17 GM PACK PO PRN (15:32)
[2025-02-08] MEDS ORDERED: ONDANSETRON INJ 2 MG/ML 2 ML VIAL IV PRN (15:32)
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
[2025-02-08] MEDS ORDERED: ACETAMINOPHEN 325 MG TAB PO PRN (16:04)
--- NOTE | 2025-02-08 19:11 | Pharmacy Report ---
Pharmacy Glycemic Short Note 2 - Date of Service February 08, 2025 - Glycemic Short BSG Results (Last 24 hours): 02/08/25 02/08/25 12:30 18:06 Glucose 387 H* POC Glucose 326 H* OUTPATIENT ANTIDIABETIC REGIMEN: * Per ED report, recent non-compliance with anti-diabetic regimen due to loss of insurance A1c = 9.7% (12/02/24) ASSESSMENT: * Brian is a 44 yo T2DM who presented with cellulitis and wound on left lower leg. * History of poorly controlled diabetes with recent non-compliance due to loss of insurance. BSG of 387 mg/dL on arrival. Anion gap and bicarb wnl. * During an December 2024 admission, patient was treated with short acting insulin + glimepiride. Fasting BSG during that time ranged from 80 to 163 mg/dL. * Will initiate SC basal + bolus insulin and titrate per BSG data. PLAN FOR INPATIENT GLYCEMIC CONTROL: * Hold outpatient oral diabetes medications * Basal insulin * Lantus 15 units SQ qHS x 1 * Reassess basal on 02/09 * Bolus insulin * NovoLog per scale ACHS or Q6hrs while NPO * Goal Range: Low 110 mg/dL - High 140 mg/dL * Correction Factor: 25 mg/dL/unit * Nutritional / Prandial insulin per carb ratio of 1 unit per 8 grams CHO consumed
[2025-02-08] MEDS: INSULIN ASPART PER UNIT CHARGE SC SCH (19:48)
[2025-02-08] MEDS ORDERED: Nursing to Pharmacy Communication SCH (20:00)
[2025-02-08] MEDS: PIPERACILLIN/TAZOBACTAM 4.5 GM/100 ML BAG IV STA (20:10)
[2025-02-08] MEDS: ACETAMINOPHEN 325 MG TAB PO PRN (20:20)
[2025-02-08] MEDS: NAPROXEN 375 MG TAB PO PRN (20:20)
[2025-02-08] MEDS: ASPIRIN 81 MG ECTAB PO SCH (20:20)
[2025-02-08] MEDS: ENOXAPARIN INJ 40 MG/0.4 ML SYR SQ SCH (21:52)
[2025-02-08] MEDS: POT PHOSPHATE MONOBASIC W/ SOD TAB PO SCH (21:53)
[2025-02-08] MEDS: METOPROLOL SUCC 50MG EXT REL TAB PO SCH (21:53)
[2025-02-08] MEDS: LANTUS PER UNIT CHARGE SC SCH (22:12)
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
[2025-02-08] MEDS: LINEZOLID 600 MG/300 ML BAG IV SCH (22:48)
[2025-02-08] MEDS: GABAPENTIN 300 MG CAP PO STA (22:57)
[2025-02-09] MEDS: PIPERACILLIN/TAZOBACTAM 4.5 GM/100 ML BAG IV SCH (01:17)
[2025-02-09 08:12] LABS: Hematocrit (blood only) 34.3 % (42.0-52.0); Hemoglobin 11.8 g/dL (14.0-18.0); Mean Corpuscular Hemoglobin 28.0 pg (25.0-34.0); Mean Corpuscular Volume 81.5 fL (80.0-100.0); Platelet Count 299 K/uL (130-400); RDW Standard Deviation 38.6 fL (36.4-46.3); Red Blood Count 4.21 M/uL (4.70-6.10); White Blood Count 12.44 K/ul (4.8-10.8)
[2025-02-09 08:46] LABS: Anion Gap 7.0 (3-11); Blood Urea Nitrogen 19.0 mg/dl (6-23); Calcium 8.5 mg/dl (8.6-10.3); Carbon Dioxide 24.0 mmol/L (21-32); Chloride 102.0 mmol/L (98-107); Creatinine Clr Calc Pharmacy 181.3 ml/min; Glucose 267.0 mg/dl (70-99(Fasting)); Potassium 4.2 mmol/L (3.5-5.1); Sodium 133.0 mmol/L (136-145)
[2025-02-09 09:01] LABS: Hemoglobin A1C 10.5 % (4.5-5.6)
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
[2025-02-09] MEDS ORDERED: Nursing to Pharmacy Communication SCH (11:30)
--- NOTE | 2025-02-09 12:24 | Pharmacy Report ---
Pharmacy Glycemic Short Note 2 - Date of Service February 09, 2025 - Glycemic Short BSG Results (Last 24 hours): 02/08/25 02/08/25 02/08/25 12:30 18:06 20:11 Glucose 387 H* POC Glucose 326 H* 283 H 02/09/25 02/09/25 02/09/25 07:29 07:38 11:43 Glucose 267 H POC Glucose 244 H 258 H OUTPATIENT ANTIDIABETIC REGIMEN: * Per ED report, recent non-compliance with anti-diabetic regimen due to loss of insurance A1c = 9.7% (12/02/24), updated value 10.5% on 02/09/25 ASSESSMENT: * Brian's blood glucose has been significantly elevated since admission yester day. * Fasting BSG was 244mg/dL this morning. Bolus insulin parameters were tightened to a stress of 2 and an additional dose of Lantus 12 units x 1 was given. 02/08: * Brian is a 44 yo T2DM who presented with cellulitis and wound on left lower leg. * History of poorly controlled diabetes with recent non-compliance due to loss of insurance. BSG of 387 mg/dL on arrival. Anion gap and bicarb wnl. * During an December 2024 admission, patient was treated with short acting insulin + glimepiride. Fasting BSG during that time ranged from 80 to 163 mg/dL. * Will initiate SC basal + bolus insulin and titrate per BSG data. PLAN FOR INPATIENT GLYCEMIC CONTROL: * Hold outpatient oral diabetes medications * Basal insulin * Lantus 15 units SQ qHS x 1 last evening and 12 units SQ x 1 at lunch time today. Will reassess need/dosing with additional BSG readings. * Bolus insulin * NovoLog per scale ACHS or Q6hrs while NPO * Goal Range: Low 110 mg/dL - High 140 mg/dL * Correction Factor: 20 mg/dL/unit * Nutritional / Prandial insulin per carb ratio of 1 unit per 6 grams CHO consumed
[2025-02-09] MEDS: LANTUS PER UNIT CHARGE SC SCH (12:47)
[2025-02-09] MEDS: ATORVASTATIN 40 MG TAB PO SCH (12:51)
[2025-02-09] MEDS: METOPROLOL SUCC 50MG EXT REL TAB PO ONE (12:53)
[2025-02-09] MEDS: POT PHOSPHATE MONOBASIC W/ SOD TAB PO ONE (12:53)
[2025-02-09] MEDS: Nursing to Pharmacy Communication SCH (12:56)
--- NOTE | 2025-02-09 17:22 | Hospitalist Progress Note ---
Date of Service February 09, 2025 Assessment & Plan (1) Poorly controlled diabetes mellitus: (2) Diabetic foot ulcers: Plan (1) Cellulitis of left leg: Plan: ZOsyn and Linezolid is placed. Consulted Podiatry. Wound debrided, purulent fluid removed, culture pending, plan is to monitor CBC and discharge on oral antibiotcs tomorrow mon. Will followup with cultures on Friday. Will discharge on LInezolid and augmentin. Patient should receive AM dose of antibiotics prior to discharge. Podiatry wrote wound care instructions. (2) Diabetic foot ulcers: Plan: Involving both great toes. Local care. Podiatry consultation requested (3) Essential hypertension: Plan: Stable. Continue current medical management (4) Morbid obesity: Plan: BMI greater than 40. Significant weight loss recommended (5) Type 2 diabetes mellitus: Plan: ADA diet. Continue glipizide. Sliding scale coverage ordered. He also takes Mounjaro at home Plan Patient requesting to be discharged tomorrow. Admission and Anticipated Discharge Date Admission Date: February 08, 2025 Subjective Patient reports no new symptoms. Physical Exam Physical Exam: General: Pt is a 44 y/o morbidly obese male in [facility]. Skin: LLE now with drydresing Skin is otherwise warm/dry and intact; no other lesions noted. Respiratory: CTA bilat Cardio: RRR no murmurs, pedal pulses difficult to palpate Abdomen: normoactive BS x4, nontender to palpation MSK: FROM of extremities, no deformities, no difficulty with ambulation Neuro: A&Ox3 Results & Data Results & Data Vital Signs (Past 12 Hours) Vital Signs Temp Pulse Resp BP Pulse Ox O2 Del Method 02/09/25 15:11 36.8 C 97 H 20 125/80 94 Room Air 02/09/25 08:45 Room Air 02/09/25 07:07 36.7 C 78 20 135/83 95 Room Air PG Care Time/CCT Total # of Minutes Spent Total Time Spent with Patient: Total time spent is greater than 50% in coordination of care (as documented) at patient's floor/unit and/or counseling patient: Coding Level of Care Code 33708 SUB INP/OBS CARE 3/50MIN Diagnoses Poorly controlled diabetes mellitus E11.65 Diabetic foot ulcers E11.621; L97.509
[2025-02-09 18:02] LABS: Hematocrit (blood only) 33.6 % (42.0-52.0); Hemoglobin 11.5 g/dL (14.0-18.0); Mean Corpuscular Hemoglobin 27.6 pg (25.0-34.0); Mean Corpuscular Volume 80.6 fL (80.0-100.0); Platelet Count 312 K/uL (130-400); RDW Standard Deviation 38.5 fL (36.4-46.3); Red Blood Count 4.17 M/uL (4.70-6.10); White Blood Count 13.96 K/ul (4.8-10.8)
[2025-02-10] MEDS: INSULIN ASPART PER UNIT CHARGE SC SCH (00:06)
[2025-02-10] MEDS: LANTUS PER UNIT CHARGE SC ONE (05:12)
[2025-02-10 06:55] LABS: Hematocrit (blood only) 35.0 % (42.0-52.0); Hemoglobin 12.0 g/dL (14.0-18.0); Mean Corpuscular Hemoglobin 27.6 pg (25.0-34.0); Mean Corpuscular Volume 80.5 fL (80.0-100.0); Platelet Count 299 K/uL (130-400); RDW Standard Deviation 38.5 fL (36.4-46.3); Red Blood Count 4.35 M/uL (4.70-6.10); White Blood Count 10.75 K/ul (4.8-10.8)
[2025-02-10 07:13] VITALS: BP 135/77; PULSE 80; RESP 16; TEMP 97.9; O2SAT 94
--- NOTE | 2025-02-10 08:52 | Discharge Summary ---
"Discharge Summary Date of Service February 10, 2025 Principal Dx & Hospital Course #1 = Principal Diagnosis (1) Poorly controlled diabetes mellitus: (2) Diabetic foot ulcers: Plan This is a 44 year old male with past medical history of type 2 DM, HLD, Obesity, CAD, HTN who presented to the ED on 02/08/2025 for recurrent cellulitis of LLE. #LLE Cellulitis | Diabetic foot ulcers. w/ ongoing complaints, completed both amoxicillin & doxycycline outpatient with minimal improvement. L tib/fib XR: no acute findings LLE soft tissue US: possible sm developing subcutaneous abscess of LLE CBC w/ resolution of leukocytosis. L ankle culture + for Staph aureus, sensitivities reviewed L toe culture + for strep agalactiae; sensitivities pending on discharge. Podiatry consulted: s/p bedside debridement to promote healing. superficial abscess was incised & purulent drainage expressed. Rec follow up in diabetic foot clinic ID consulted: recommending a 14 day course of abx starting 02/08, can be discharged on Linezolid + Augmentin BID #Type 2 DM A1c 10.5% Resume home regimen - Glimepiride, Mounjaro Continue to follow w/ PCP for medication adjustments. #HTN - Continue Metoprolol & Lisinopril #Morbid Obesity - BMI > 40; weight loss recommended #HLD - statin Pt discharged home 02/10 Admission HPI Per Admitting Provider Pt is a 44 y/o with a PMHx significant for T2DM, Diabetic foot wounds, HTN, and morbid obesity who presents to the hospital c/o recurring cellulitis of LLE. Pt recently d/c for same complaint on 01/08 and completed outpatient course of amoxicillin and doxycycline. Patient reports he had lost his insurance which was why he did not follow with podiatry. Patient states he was wearing tight sock which runbbed his skin and caused an abrasion on his left loweer leg. Tis slowly worsened with redness and swelling, which prompted the patient to come to the hopsital. Pt denies any chills, sweats, CP, SOB, loss of appetite, difficulty sleeping, and abd discomfort. Pt expresses concern about length of hospital stay d/t Thanksgiving holiday Discharge Exam General: NAD, VS: BP 135/77; P80; R16; T36.6C; obese Resp: normal respiratory effort Extremities: Moves all extremities, no edema Neuro: A&O x3 Skin: dressing in place over LLE, appeared saturated w/ drainage Discharge Plan Discharge Items Patient Disposition: Home - Self-Care Reason For Visit: CELLULITIS Discharge Diagnosis: cellulitis Condition on Discharge: Fair Activity: As commented below Non-emergency contact: Primary Care Provider Call non-emergency contact if: you have any medication questions Follow-up/Referrals: Violet Hdz MD [Primary Care Provider] - Diet: Carb Consistent or DM2 Addtl Attending Provider Instructions: Mr. Kelley, Tyrone were recently hospitalized secondary to recurrent left lower extremity cellulitis. You were evaluated by infectious disease and podiatry while you were here. Upon discharge, please follow up with podiatry in the clinic for continued care. Your wounds should be changed daily with Aquacel Ag and a dry sterile dressing. You are allowed to be weightbearing as tolerated in a post op shoe to the left foot. Light leon bandages may be applied to hold any dressings in place. Please elevate your left limb throughout the day. Medications: Your medication list has been reviewed and reconciled upon discharge to ensure accuracy and continuity of care. An updated list of all your medications is included with your hospital discharge paperwork. Please review this list closely, and make note of any changes. You will be on antibiotics including Augmentin and Linezolid twice daily for the next 12 days. Your first dose at home will be this evening, 02/10. You may take with food to avoid GI upset. Given that you are on two antibiotics for a prolonged period, an over the counter probiotic is recommended to help replenish good bacteria in your gut. Take your medications as instructed; do not skip a dose of your medicines. Make sure all of your doctors know every medicine you are taking (including pqhe-zrs-rucrrwa medicines, vitamins, and supplements). Call your primary care provider before taking any new medicines (including over- the-counter medicines, vitamins, and supplements), because some of these may interact with your current medications, or may make your symptoms worse. Tell your primary care provider if you cannot afford your medications. Activity: You can do normal everyday activities as your body allows. Take rest breaks if you feel tired. Do not overexert. Stop activity if you have pain, shortness of breath or feel dizzy. Follow-up appointments: Make an appointment with your primary care physician within one week of discharge. A copy of this summary will be sent to them. Every time you see your primary care physician, or any other doctor, bring your medication list, and a list of questions. CONTACT YOUR PRIMARY CARE PROVIDER if you experience any of the following: Shortness of breath or difficulty breathing Fevers or chills Feeling tired with normal activity or experiencing dizziness or fainting Difficulty following your treatment plan, or difficulty taking medications CALL 911 OR GO TO THE EMERGENCY DEPARTMENT if you experience any of the following: Severe abdominal pain or nausea/vomiting Severe chest pain, or chest pain that radiates (moves) to your jaw or arm Sudden, severe shortness of breath or difficulty breathing Thank you for allowing us to participate in your care. Pending Studies at Discharge: No Stand-Alone Forms: My [facility] App47, Smoking Cessation Medications and DC Order Prescriptions: New linezolid 600 mg tablet 600 mg PO BID 12 Days Qty: 24 0RF amoxicillin-pot clavulanate 875-125 mg tablet 1 tab PO BID Qty: 24 0RF Continued (DME) FreeStyle Yulia 3 Plus Sensor Device See Rx Instructions .Route Qty: 2 6RF Rx Instructions: Change sensor every 15 days (DME) FreeStyle Yulia 3 [place] Misc See Rx Instructions .Route Qty: 1 0RF Rx Instructions: Scan 3 times daily and as needed acetaminophen [Tylenol] 325 mg Tablet 650 mg PO QID PRN (Reason: Pain) naproxen sodium 220 mg Tablet 440 mg PO BID PRN (Reason: Pain) ibuprofen 200 mg Tablet 400 mg PO Q6H PRN (Reason: Pain) atorvastatin 40 mg tablet 40 mg PO DAILY Hold Instructions: Resume on 01/10/25. Hold for 24h after receiving IV daptomycin; resume on 01/10 glimepiride 4 mg tablet 8 mg PO QPM aspirin 81 mg Tablet,Delayed Release (Dr/Ec) 81 mg PO QPM Qty: 0 0RF Trulicity 1.5 mg/0.5 mL pen injector 0 mg subcut .weekly Patient Comments: hasnt started yet Rx Instructions: Inject 1.5mg once weekly Ozempic 1 mg/dose (4 mg/3 mL) pen injector 0 mg subcut .weekly Patient Comments: hasnt started due to insurance tirzepatide 7.5 mg/0.5 mL pen injector 0 mg subcut WK Patient Comments: hasnt started yet due to insurance Rx Instructions: Inject 7.5mg once weekly Changed metoprolol succinate 50 mg Tablet Extended Release 24 Hr 100 mg PO QAM Qty: 0 0RF lisinopril 20 mg tablet 20 mg PO QAM Qty: 90 3RF K-Phos Original 500 mg tablet,soluble 500 mg PO QAM Qty: 0 0RF Patient Comments: just ran out of medication, prefers this medication Discharge Orders: Discharge Order (Routine); Ordered 02/10/25 Ordered By: Marli Zamora/Other Patient Handouts: Wound Care Admission Data Admit Date/Time: 02/08/25 15:32 Attending Provider: Keron De Admit Provider: Anton Smyth Primary Care Provider: Violet Hdz Other Providers: Anton Smyth; Evelio Ferris; Darcy Guardado; Amy Farley; Radha Ratliff; Ed Can; Ronda Stanley; Kaila Sarmiento Other Interventions: Discharge Summary Assessment (RN) Last Done: 02/10/25 09:46 Hospital Stay Data Consultations 02/08/25 15:13 ED Decision to Admit Stat 02/08/25 16:05 Consult Podiatry Routine 02/09/25 07:47 Consult Infectious Diseases Routine Diagnostic Imagining Performed 02/08/25 12:16 soft tissue ext ltd Routine Pending Results Patient Have Any Pending Studies at Discharge: No Discharge Instructions Given to Patient (Per Discharging Provider) Mr. Kelley, Tyrone were recently hospitalized secondary to recurrent left lower extremity cellulitis. You were evaluated by infectious disease and podiatry while you were here. Upon discharge, please follow up with podiatry in the clinic for continued care. Your wounds should be changed daily with Aquacel Ag and a dry sterile dressing. You are allowed to be weightbearing as tolerated in a post op shoe to the left foot. Light leon bandages may be applied to hold any dressings in place. Please elevate your left limb throughout the day. Medications: Your medication list has been reviewed and reconciled upon discharge to ensure accuracy and continuity of care. An updated list of all your medications is included with your hospital discharge paperwork. Please review this list closely, and make note of any changes. You will be on antibiotics including Augmentin and Linezolid twice daily for the next 12 days. Your first dose at home will be this evening, 02/10. You may take with food to avoid GI upset. Given that you are on two antibiotics for a prolonged period, an over the counter probiotic is recommended to help replenish good bacteria in your gut. Take your medications as instructed; do not skip a dose of your medicines. Make sure all of your doctors know every medicine you are taking (including rupo-xtg-qtxgeog medicines, vitamins, and supplements). Call your primary care provider before taking any new medicines (including over- the-counter medicines, vitamins, and supplements), because some of these may interact with your cu rrent medications, or may make your symptoms worse. Tell your primary care provider if you cannot afford your medications. Activity: You can do normal everyday activities as your body allows. Take rest breaks if you feel tired. Do not overexert. Stop activity if you have pain, shortness of breath or feel dizzy. Follow-up appointments: Make an appointment with your primary care physician within one week of discharge. A copy of this summary will be sent to them. Every time you see your primary care physician, or any other doctor, bring your medication list, and a list of questions. CONTACT YOUR PRIMARY CARE PROVIDER if you experience any of the following: Shortness of breath or difficulty breathing Fevers or chills Feeling tired with normal activity or experiencing dizziness or fainting Difficulty following your treatment plan, or difficulty taking medications CALL 911 OR GO TO THE EMERGENCY DEPARTMENT if you experience any of the following: Severe abdominal pain or nausea/vomiting Severe chest pain, or chest pain that radiates (moves) to your jaw or arm Sudden, severe shortness of breath or difficulty breathing Thank you for allowing us to participate in your care. Supervising Physician Co-Signing Physician Notes chart reviewed and case d/w K VERENA Gomez, as above Total Time Total Time Spent Total Time Spent (In Minutes): 45 Total Time Includes: Examination of the Patient, Discharge Planning and Medication Reconciliation Coding Level of Care Code 47462 INP/OBS DISCH >30 MIN Diagnoses Poorly controlled diabetes mellitus E11.65 Diabetic foot ulcers E11.621; L97.509"
[2025-02-10] MEDS: AMOXICILLIN/CLAVULANATE 875 MG TAB PO ONE (09:09)
[2025-02-10] MEDS: POT PHOSPHATE MONOBASIC W/ SOD TAB PO SCH (09:09)
[2025-02-10] MEDS: LINEZOLID 600 MG TAB PO ONE (09:09)
[2025-02-10] MEDS: METOPROLOL SUCC 50MG EXT REL TAB PO SCH (09:10)
--- NOTE | 2025-02-11 09:58 | Communication Note ---
Date of Service: February 11, 2025 Reviewed his cultures. Grew MRSA and multiple strep bacteria. Sensitive to Linezolid. Discussed with ID, ok to stop the augmentin. I called and informed patient, he states he is doing much better. He did miss a dose of Linezolid overnight as there was an issue with the pharmacy, but he did take it this morning and will try his best not to miss any doses. Given his clinical improvement, this is reassuring.
== END 2025-02-10 10:11 | disposition home or self-care (01) | DRG 623 ==
LOC: SUATTDRO → ED 11:16 → 3W 15:32 → SUATTDRO 15:32 → 3W 17:21

== ENCOUNTER 2025-03-04 20:03 | Inpatient (IN) ==
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
[2025-03-04 21:29] LABS: Hematocrit (blood only) 34.5 % (42.0-52.0); Hemoglobin 11.8 g/dL (14.0-18.0); Immature Granulocytes # (auto) 0.04 K/uL (0.01-0.20); Immature Granulocytes % (auto) 0.3 %; Mean Corpuscular Hemoglobin 28.0 pg (25.0-34.0); Mean Corpuscular Volume 81.9 fL (80.0-100.0); Platelet Count 222 K/uL (130-400); RDW Standard Deviation 42.5 fL (36.4-46.3); Red Blood Count 4.21 M/uL (4.70-6.10); White Blood Count 12.03 K/ul (4.8-10.8)
[2025-03-04] MEDS: PIPERACILLIN/TAZOBACTAM 4.5 GM/100 ML BAG IV ONE (21:42)
[2025-03-04 21:57] LABS: Albumin Level 3.2 gm/dl (3.4-5.0); Anion Gap 8.0 (3-11); Bilirubin,Total 0.9 mg/dl (0.2-1.0); Calcium 8.8 mg/dl (8.6-10.3); Carbon Dioxide 25.0 mmol/L (21-32); Chloride 102.0 mmol/L (98-107); Potassium 3.8 mmol/L (3.5-5.1); Sodium 135.0 mmol/L (136-145)
[2025-03-04 22:03] LABS: Alanine Aminotransferase 17.0 U/L (7-52); Albumin Globulin Ratio 0.9 (0.9-2); Alkaline Phosphatase 70.0 U/L (34-104); Blood Urea Nitrogen 18.0 mg/dl (6-23); Creatinine Clr Calc Pharmacy 136.8 ml/min; Globulin 3.7 gm/dl (2.5-4.0); Glucose 298.0 mg/dl (70-99(Fasting)); Total Protein 6.9 gm/dl (6.0-8.3)
[2025-03-04] MEDS: SODIUM CHLORIDE 0.9% 500 ML IV ONE (22:13)
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
[2025-03-05] MEDS ORDERED: ONDANSETRON INJ 2 MG/ML 2 ML VIAL IV PRN (00:12)
[2025-03-05] MEDS ORDERED: MELATONIN 3 MG TAB PO PRN (00:12)
[2025-03-05] MEDS ORDERED: POLYETHYLENE (MIRALAX) 17 GM PACK PO PRN (00:12)
[2025-03-05] MEDS ORDERED: GLUCOSE 10 TAB/TUBE PO PRN (00:57)
[2025-03-05] MEDS ORDERED: GLUCAGON FOR INJ 1 MG VIAL SQ PRN (00:57)
[2025-03-05] MEDS ORDERED: GLUCOSE 40% GEL 15 GM TUBE PO PRN (00:57)
[2025-03-05] MEDS ORDERED: CARBOHYDRATES FOR HYPOGLYCEMIA PO PRN (00:57)
[2025-03-05] MEDS ORDERED: DEXTROSE 50% 50 ML SYRINGE IV PRN (00:57)
--- NOTE | 2025-03-05 05:12 | Billing Data ---
Date of Service March 04, 2025 Coding Level of Care Code 56692 INT INP/OBS CARE
[2025-03-05] MEDS: LINEZOLID 600 MG/300 ML BAG IV SCH (05:55)
[2025-03-05] MEDS: Nursing to Pharmacy Communication SCH (07:37)
[2025-03-05] MEDS: ATORVASTATIN 40 MG TAB PO SCH (08:19)
[2025-03-05] MEDS: METOPROLOL SUCC 50MG EXT REL TAB PO SCH (08:19)
[2025-03-05] MEDS: LANTUS PER UNIT CHARGE SQ SCH (09:22)
[2025-03-05] MEDS: ACETAMINOPHEN 325 MG TAB PO PRN (09:23)
[2025-03-05] MEDS: ASPIRIN 81 MG ECTAB PO SCH (09:23)
[2025-03-05] MEDS: GLIMEPIRIDE 2 MG TAB PO SCH (09:23)
[2025-03-05] MEDS: INSULIN ASPART PER UNIT CHARGE SC SCH (10:04)
--- NOTE | 2025-03-05 13:28 | Hospitalist Progress Note ---
Date of Service March 05, 2025 Assessment & Plan (1) Cellulitis of left leg: Plan Patient is a 44-year-old male with past medical history of recurrent LLE cellulitis, T2DM, hyperlipidemia, CAD, hypertension, obesity who presented with acute onset of progressive LLE erythema, warmth, tenderness and was concerned for recurrent cellulitis. Leukocytosis of 12, procalcitonin 2.37, and lactate 2.6 on arrival. He was admitted for IV antibiotics for his cellulitis infection. #Cellulitis of left lower extremity Patient with 3 admissions for management of cellulitis in left lower extremity, the most recent which was in 02/08 - 02/10 at which point he required I&D of underlying abscess in the affected extremity. Developed cellulitic changes in left lower extremity 12-24 hours [employer]. Culture from wound after I&D of abscess and most recent admission grew MSSA and strep Considering above-mentioned culture results, will manage with Ancef and add linezolid for MRSA coverage until ruled out, but can expand coverage if response is suboptimal - Wound culture pending - Blood culture with gram positive cocci clusters in 1/2 bottles - continue to monitor - Continue wound care #Type 2 DM - A1c 10.5% in January 2025 - Home regimen - Glimepiride, Mounjaro - hold Mounjaro while inpatient, continue glimepiride - Lantus + SSI while admitted #HTN - Continue Metoprolol and Lisinopril #HLD - Continue atorvastatin #Class III Obesity - BMI 58; weight loss recommended VTE ppx: Start Lovenox Dispo: continued inpatient stay for further IV antibiotics Reviewed prior medical records. Admission and Anticipated Discharge Date Admission Date: March 04, 2025 Supervising Physician Co-Signing Physician Notes Attending Attestation - Chart reviewed, care plan d/w MAYANK Bragg. I agree w/ the oseguera components of her documentation. Christiano Mcmahon MD Subjective Patient seen and evaluated at bedside. He reports feeling "fine, just bored." He denies any pain in his lower extremities. He is tolerating his antibiotics well. He denies any nausea, vomiting, diarrhea, chest pain, shortness of breath, abdominal pain, or urinary symptoms. We discussed a continued stay for further IV antibiotics. No acute complaints or concners at this time. Physical Exam Physical Exam: General: No acute distress, nondiaphoretic, well-developed, well-nourished. Skin: Warm, dry. LLE with circumferential erythema and increased warmth, erythema extending up posterior and medial thigh - no weeping or purulent drainage noted. Anterior LLE covered in dressing - clean dry intact. Great toes bilaterally covered in dressings - clean dry intact. 2+ nonpitting pedal edema noted. Cardiac: Regular rate and rhythm without murmurs gallops or rubs. Pulm: Clear to auscultation bilaterally without wheezes, rales or rhonchi. Normal respiratory effort. 95% on room air. Neuro: A&O x3. No focal neurological deficits. Results & Data Results & Data Vital Signs (Past 12 Hours) Vital Signs Temp Pulse Resp BP Pulse Ox O2 Del Method 03/05/25 07:35 Room Air 03/05/25 07:23 99.9 F H 102 H 16 138/78 95 Room Air Laboratory Results Reviewed labs from admission PG Care Time/CCT Total # of Minutes Spent Total Time Spent with Patient: Total time spent is greater than 50% in coordination of care (as documented) at patient's floor/unit and/or counseling patient: Coding Level of Care Code 82054 SUB INP/OBS CARE 35MIN Diagnoses Cellulitis of left leg L03.116
[2025-03-05 15:25] LABS: A calco-baum cmplx NotReported Not Detected (NotDetected); Bact fragilis Not Reported Not Detected (NotDetected); Blood Culture Id Panel See PCR Comment (NotDetected); C auris Not Reported Not Detected (NotDetected); Calbicans Not Reported Not Detected (NotDetected); Candida glabrata Not Reported Not Detected (NotDetected); Candida krusei Not Reported Not Detected (NotDetected); Cneoformans/gatti Not Reported Not Detected (NotDetected); Cparapsilosis Not Reported Not Detected (NotDetected); Ctropicalis Not Reported Not Detected (NotDetected); E cloacae compx Not Reported Not Detected (NotDetected); Efaecalis Not Reported Not Detected (NotDetected); Efaecium Not Reported Not Detected (NotDetected); Enterobacterales Not Reported Not Detected (NotDetected); Escherichia coli Not Reported Not Detected (NotDetected); H influenzae Not Reported Not Detected (NotDetected); K aerogenes Not Reported Not Detected (NotDetected); Koxytoca Not Reported Not Detected (NotDetected); Kpneumoniae grp Not Reported Not Detected (NotDetected); Lmonocyt Not Reported Not Detected (NotDetected); N meningitidis Not Reported Not Detected (NotDetected); P aeruginosa Not Reported Not Detected (NotDetected); Proteus spp Not Reported Not Detected (NotDetected); Salmonella spp Not Reported Not Detected (NotDetected); Staph lugdunensis Not Reported Not Detected (NotDetected); Staph spp. Not Reported DETECTED (NotDetected); Staphaureus Not Reported DETECTED (NotDetected); Staphepi Not Reported Not Detected (NotDetected); Staphylococcus spp. DETECTED (NotDetected); Stenmaltophilia Not Reported Not Detected (NotDetected); Strep agal(GrpB) Not Reported Not Detected (NotDetected); Strep pneum Not Reported Not Detected (NotDetected); Strep pyog (GrpA) Not Reported Not Detected (NotDetected); Strep spp Not Reported Not Detected (NotDetected); mecAC+MREJ Resistant Gene MRSA Not Detected (NotDetected)
[2025-03-05] MEDS ORDERED: GLIMEPIRIDE 2 MG TAB PO SCH (21:00)
[2025-03-05] MEDS ORDERED: ASPIRIN 81 MG ECTAB PO SCH (21:00)
[2025-03-06] MEDS: ENOXAPARIN INJ 40 MG/0.4 ML SYR SQ SCH (09:01)
--- NOTE | 2025-03-06 10:57 | Hospitalist Progress Note ---
Date of Service March 06, 2025 Assessment & Plan (1) Cellulitis of left leg: Plan Patient is a 44-year-old male with past medical history of recurrent LLE cellulitis, T2DM, hyperlipidemia, CAD, hypertension, obesity who presented with acute onset of progressive LLE erythema, warmth, tenderness and was concerned for recurrent cellulitis on 03/04/2025. #Cellulitis of left lower extremity/MSSA bacteremia Patient with 3 admissions for management of cellulitis in left lower extremity, the most recent which was in 02/08 - 02/10 at which point he required I&D of underlying abscess in the affected extremity where cultures grew MSSA & strep. 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 CBC w/ resolution of leukocytosis. BMP stable. Procal appears to have down trended from 2.37 --> 1.34. Given recurrent cellulitis & recent I&D, CT LLE ordered - no definite signs of abscess/osteomyelitis WC + for staph aureus w/ sensitivities pending. BC 03/18 bottles + for staph aureus; repeat BC drawn 03/06, echo pending. Continue Ancef & Linezolid Consider ID consultation in AM, patient has been seen by their service during previous hospitalizations. Continue daily wound care. #Type 2 DM A1c 10.5% in January 2025 Home regimen - Glimepiride, Mounjaro - hold Mounjaro while inpatient, continue glimepiride Lantus + SSI while admitted #HTN - Continue Metoprolol and Lisinopril #HLD - Continue atorvastatin #Class III Obesity - BMI 58; weight loss recommended VTE ppx: Lovenox Code: full Admission and Anticipated Discharge Date Admission Date: March 04, 2025 Supervising Physician Co-Signing Physician Notes PA Supervision Note: I did not personally see or examine the patient today, but I verified all oseguera points of MAYANK Gomez's assessment and plan with the following exceptions/additions: None Subjective Brian was seen & examined this morning. He stated he felt fine today. Was originally refusing labs, imaging, echo but after discussion patient was agreeable. Reports he likes to be notified prior to anything being ordered. Physical Exam Physical Exam: General: NAD, VS: BP 141/87; P89; R16; T36.9C Resp: normal respiratory effort Extremities: Moves all extremities, no edema, LLE wrapped. refused bandage change for nursing Neuro: A&O x3 Skin: intact, no lesions noted Results & Data Results & Data Vital Signs (Past 12 Hours) Vital Signs Temp Pulse Resp BP Pulse Ox O2 Del Method 03/06/25 07:57 36.9 C 89 16 141/87 H 96 Room Air PG Care Time/CCT Total # of Minutes Spent Total Time Spent with Patient: Total time spent is greater than 50% in coordination of care (as documented) at patient's floor/unit and/or counseling patient: Coding Level of Care Code 33368 SUB INP/OBS CARE 2/35MIN Diagnoses Cellulitis of left leg L03.116
--- NOTE | 2025-03-06 12:07 | CT Scan Report ---
Clinical history: Cellulitis Technique: Axial computed tomography images were obtained of the left lower leg without intravenous contrast. Sagittal and coronal reconstructions were obtained Comparison is made to the CT of the left knee dated 12/04/2024 Findings: No fracture is identified. No subluxation or dislocation is seen. There is ankle joint osteoarthritis. No focal osseous lesion is evident. There is no definite sign of osteomyelitis. There is a small dorsal calcaneal spur There is diffuse subcutaneous edema of the left calf that may be due to cellulitis. There is apparent superficial soft tissue ulceration in the anterior mid left calf. No clear abscess is identified. The visualized musculature appears unremarkable. No foreign body is evident. The previously seen left knee effusion has diminished Impression: 1. Soft tissue ulceration and subcutaneous edema of the left calf, consistent with cellulitis 2. No definite abscess or osteomyelitis 3. Resolution of the previously seen left knee effusion 4. Ankle joint osteoarthritis Electronically signed by Logan Damon 03-06-2025 12:07 PM
[2025-03-06 12:28] LABS: Hematocrit (blood only) 37.2 % (42.0-52.0); Hemoglobin 12.6 g/dL (14.0-18.0); Mean Corpuscular Hemoglobin 27.7 pg (25.0-34.0); Mean Corpuscular Volume 81.8 fL (80.0-100.0); Platelet Count 201 K/uL (130-400); RDW Standard Deviation 42.2 fL (36.4-46.3); Red Blood Count 4.55 M/uL (4.70-6.10); White Blood Count 4.86 K/ul (4.8-10.8)
[2025-03-06 12:43] LABS: Anion Gap 9.0 (3-11); Blood Urea Nitrogen 14.0 mg/dl (6-23); Calcium 9.1 mg/dl (8.6-10.3); Carbon Dioxide 23.0 mmol/L (21-32); Chloride 101.0 mmol/L (98-107); Creatinine Clr Calc Pharmacy 196.6 ml/min; Glucose 236.0 mg/dl (70-99(Fasting)); Potassium 4.0 mmol/L (3.5-5.1); Sodium 133.0 mmol/L (136-145)
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
--- NOTE | 2025-03-07 14:17 | Hospitalist Progress Note ---
Date of Service March 07, 2025 Assessment & Plan (1) Cellulitis of left leg: Plan Patient is a 44-year-old male with past medical history of recurrent LLE cellulitis, T2DM, hyperlipidemia, CAD, hypertension, obesity who presented with acute onset of progressive LLE erythema, warmth, tenderness and was concerned for recurrent cellulitis on 03/04/2025. #Cellulitis of left lower extremity/MSSA bacteremia Patient with 3 admissions for management of cellulitis in left lower extremity, the most recent which was in 02/08 - 02/10 at which point he required I&D of underlying abscess in the affected extremity where cultures grew MSSA & strep. Developed cellulitic changes in left lower extremity 12-24 hours PROCESS CONTROL TECH. CBC w/ resolution of leukocytosis. BMP stable. Procal appears to have down trended from 2.37 --> 1.34. Given recurrent cellulitis & recent I&D, CT LLE ordered - no definite signs of abscess/osteomyelitis WC + for staph aureus ; BC 2/2 bottles + for staph aureus; repeat BC drawn 03/06 neg at 24 hours, echo pending. ID consulted --> recommending Ancef for 2 weeks outpatient once BC negative. Continue daily wound care. Wound nurse consulted --> recommending Aquacel ag to LLE. Keep pressure off toe wounds. elevated legs 2-3x day; try multivitamin & Rigo to help with healing. #Type 2 DM A1c 10.5% in January 2025 Home regimen - Glimepiride, Mounjaro - hold Mounjaro while inpatient, continue glimepiride Lantus + SSI while admitted #HTN - Continue Metoprolol and Lisinopril #HLD - Continue atorvastatin #Class III Obesity - BMI 58; weight loss recommended VTE ppx: Lovenox Code: full On 03/07, secondary to lengthen discussion based on recurrent cellulitis, slow healing toe wounds, ID recommendations and chart review, the care of this patient was greater than 55 minutes. Admission and Anticipated Discharge Date Admission Date: March 06, 2025 Subjective Brian was seen & examined this morning. Reports no symptoms & feels his leg is improving. Lengthy discussion took place with patient regarding his bacteremia. Physical Exam Physical Exam: General: NAD, VS: BP 152/77; P74; R16; T36.7C Resp: normal respiratory effort Extremities: Moves all extremities, LLE erythema extends above knee. no drainage. B/l toe wounds without purulent drainage. Do not appear overtly infected. Neuro: A&O x3, Skin: intact, no lesions noted Results & Data Results & Data Vital Signs (Past 12 Hours) Vital Signs Temp Pulse Resp BP Pulse Ox O2 Del Method 03/07/25 07:34 36.7 C 88 16 140/85 97 Room Air PG Care Time/CCT Total # of Minutes Spent Total Time Spent with Patient: Total time spent is greater than 50% in coordination of care (as documented) at patient's floor/unit and/or counseling patient: Coding Level of Care Code 14668 SUB INP/OBS CARE 3/50MIN Diagnoses Cellulitis of left leg L03.116
--- NOTE | 2025-03-07 17:11 | XCELERA ---
[id number]
[2025-03-07 22:26] VITALS: TEMP 98.4
[2025-03-08 07:05] VITALS: BP 134/84; PULSE 93; RESP 18; O2SAT 97
--- NOTE | 2025-03-08 09:10 | Infectious Disease Progress Nt ---
Date of Service March 08, 2025 Assessment & Plan (1) MSSA bacteremia: (2) Cellulitis of left leg: Plan 44yo M with h/o T2DM, autism, NICM, multiple admissions for LLE cellulitis (tx with cefazolin > LZD x 7d in 11/2024, doxy/amox x 7d in 12/2024, LZD/augmetnin x 14d in 01/2025 augmentin stopped later d/t cx with MRSA) who presented on 03/04 with redness, warmth, pain of left leg x 1d. On admission, he was afebrile, vss. WBC 12.03, Cr 1.03. Lactate 2.2. PCT 2.37. BCX with MSSA. CT LLE showed soft tissue ulceration and subcutaneous edema of left calf c/w cellulitis, no abscess or OM. He has been on linezolid and cefazolin. ID consulted 03/07. TTE with no valvular disease, no mass or vegetations. Repeat blood cx are so far negative. Source of bacteremia likely cellulitis. Given MSSA bacteremia, will need IV antibiotics. TTE is negative and no other clear metastatic disease on exam. Will therefore treat for 2 weeks with cefazolin. # MSSA bacteremia # LLE cellulitis # T2DM - f/u repeat blood cx from 03/06 - currently ngtd - if BCX negative x 48hrs, then can place midline and plan for cefazolin 2g IV q8h (or 6g IV continuous infusion q24h) for 2 weeks (start 03/06, end 03/19/25) - will need CBC w diff and CMP weekly while on IV antibiotics - no need for OPAT visit since duration is < 2 weeks, can follow with PCP Will discontinue active follow up at this time. Please do not hesitate to reconsult the Infectious Diseases service as needed. Radha Ratliff MD [facility], Division of Infectious Diseases [facility]: [phone] Admission and Anticipated Discharge Date Admission Date: March 06, 2025 Subjective This patient recommendation is based on a telemedicine consult request which was completed asynchronously through chart review and information provided by the primary physician. The patient was not seen or examined today. The evaluation is consultative in nature and all patient care and treatment decisions can either be accepted or rejected by the patient's primary hospital-based treating physician using their own independent medical judgment for their patient. Time Spent Reviewing Chart: 31+ minutes Afebrile, blood cx from 03/06 so far no growth. Results & Data Vital Signs (Past 12 Hours) Vital Signs Temp Pulse Resp BP Pulse Ox O2 Del Method 03/08/25 07:04 36.9 C 93 H 18 134/84 97 Room Air 03/08/25 01:43 Room Air 03/07/25 22:24 36.9 C 83 20 108/70 96 Room Air Laboratory Results Labs reviewed. Diagnostic Findings Imaging reviewed.
--- NOTE | 2025-03-08 14:50 | Discharge Summary ---
Discharge Summary Date of Service March 08, 2025 Principal Dx & Hospital Course #1 = Principal Diagnosis (1) Cellulitis of left leg: Plan Patient is a 44-year-old male with past medical history of recurrent LLE cellulitis, T2DM, hyperlipidemia, CAD, hypertension, obesity who presented with acute onset of progressive LLE erythema, warmth, tenderness and was concerned for recurrent cellulitis on 03/04/2025. #Cellulitis of left lower extremity/MSSA bacteremia Patient with 3 admissions for management of cellulitis in left lower extremity, the most recent which was in 02/08 - 02/10 at which point he required I&D of underlying abscess in the affected extremity where cultures grew MSSA & strep. 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 CBC w/ resolution of leukocytosis. BMP stable. Procal appears to have down trended from 2.37 --> 1.34. Given recurrent cellulitis & recent I&D, CT LLE ordered - no definite signs of abscess/osteomyelitis WC + for staph aureus ; BC 2/ bottles + for staph aureus; repeat BC drawn 03/06 neg at 48 hours, sensitivities of cultures reviewed prior to discharge. echo with no mention of valvular abnormalities. ID consulted --> recommending Ancef q8h through 03/19. US guided line placed on 03/08 prior to discharge. Wound nurse consulted inpatient, patient is declining outpatient follow up for wound care and that he can "do it himself" #Type 2 DM A1c 10.5% in January 2025 Home regimen - Glimepiride, Mounjaro - resume #HTN - Continue Metoprolol and Lisinopril #HLD - Continue atorvastatin #Class III Obesity - BMI 58; weight loss recommended Patient discharged home on IV abx 03/08. Admission HPI Per Admitting Provider Patient is a 44 y/o M who comes to ED due to cellulitis of LLE. Patient has hx of 3 admissions this year for management of cellulitis in LLE associated to wound, with the most recent admission being on 02/08-02/10 where he had I&D of abscess in LLE. Patient was then discharged with Linezolid and Augmentin, and a few days later Augmentin was d/c due to noted MRSA in culture of abscess. He completed linezolid therapy over a week ago and noed full resolution of cellulitis with continue wound care at home. However, around 12 hour ago, patient states the redness/warmth/tenderness he felt with his prior episodes of cellulitis returned, and involved most of his LLE and extends pas his knee and into distal aspect of medial thigh. Denies having associated fevers, chills, N/V/D, weakness, or other systemic sxs. ED Course: Given Zosyn x1 and NSS 500 mL bolus Labs/Imaging: CBC with leukocytosis of 12.03 with neutrophilic predominance, hemoglobin 11.8, platelets 222. CMP with no significant electrolyte abnormality. Nonfasting blood sugar of 298. LFTs unremarkable. Lactate of 2.6 which we will repeat showing level of 2.2. Pro-Waldo of 2.37. Blood cultures collected and pending. Medical History: [Reviewed] Medications: [Reviewed] Surgical History: [Reviewed] Family history: [Reviewed] Allergies: [Reviewed] Social History: [Reviewed] Code Status: FULL Discharge Exam General: NAD, VS: BP 134/84; P93; R18; T36.9C. Morbidly obese. Resp: normal respiratory effort Extremities: Moves all extremities Neuro: A&O x3 Skin: intact Discharge Plan Discharge Items Patient Disposition: Home - Self-Care Reason For Visit: CELLULITIS Discharge Diagnosis: MSSA bacteremia, left lower extremity cellulitis Activity: Resume your previous activity Non-emergency contact: Primary Care Provider Call non-emergency contact if: you have any medication questions, your symptoms worsen and you have a fever Follow-up/Referrals: Violet Hdz MD [Primary Care Provider] - 03/15/25 11:30 am Diet: Carb Consistent or DM2 Addtl Attending Provider Instructions: Mr. Kelley, You were recently hospitalized secondary to recurrent left lower extremity cellulitis. The infection then spread into your bloodstream as well. You are now returning home on IV antibiotics. Medications: Your medication list has been reviewed and reconciled upon discharge to ensure accuracy and continuity of care. An updated list of all your medications is included with your hospital discharge paperwork. Please review this list closely, and make note of any changes. Please take Cefazolin every 8 hours through 03/19/2025. Your first dose at home will be this evening, 03/08. Take your medications as instructed; do not skip a dose of your medicines. Make sure all of your doctors know every medicine you are taking (including gkvd-gen-heitxgq medicines, vitamins, and supplements). Call your primary care provider before taking any new medicines (including over- the-counter medicines, vitamins, and supplements), because some of these may interact with your current medications, or may make your symptoms worse. Tell your primary care provider if you cannot afford your medications. Activity: You can do normal everyday activities as your body allows. Take rest breaks if you feel tired. Do not overexert. Stop activity if you have pain, shortness of breath or feel dizzy. Follow-up appointments: Make an appointment with your primary care physician within one week of discharge. A copy of this summary will be sent to them. Every time you see your primary care physician, or any other doctor, bring your medication list, and a list of questions. CONTACT YOUR PRIMARY CARE PROVIDER if you experience any of the following: Shortness of breath or difficulty breathing Fevers or chills Feeling tired with normal activity or experiencing dizziness or fainting Difficulty following your treatment plan, or difficulty taking medications CALL 911 OR GO TO THE EMERGENCY DEPARTMENT if you experience any of the following: Severe abdominal pain or nausea/vomiting Severe chest pain, or chest pain that radiates (moves) to your jaw or arm Sudden, severe shortness of breath or difficulty breathing Thank you for allowing us to participate in your care. Pending Studies at Discharge: No Stand-Alone Forms: My [facility], Smoking Cessation Medications and DC Order Prescriptions: New cefazolin 2 gram recon soln 2 g IV Q8H Continued Ozempic 0.25 mg or 0.5 mg (2 mg/3 mL) pen injector 0.25 mg subcut ONCE Qty: 3 2RF Rx Instructions: Inject 0.25mg weekly for 4 weeks, then increase to 0.5mg weekly insulin glargine U-300 conc [Toujeo Max U-300 SoloStar] 300 unit/mL (3 mL) insulin pen 40 unit subcut DAILY Qty: 9 2RF Rx Instructions: Inject 40 units once daily acetaminophen [Tylenol] 325 mg Tablet 650 mg PO QID PRN (Reason: Pain) naproxen sodium 220 mg Tablet 440 mg PO BID PRN (Reason: Pain) ibuprofen 200 mg Tablet 400 mg PO Q6H PRN (Reason: Pain) atorvastatin 40 mg tablet 40 mg PO DAILY Hold Instructions: Resume on 01/10/25. Hold for 24h after receiving IV daptomycin; resume on 01/10 glimepiride 4 mg tablet 8 mg PO QPM aspirin 81 mg Tablet,Delayed Release (Dr/Ec) 81 mg PO QPM Qty: 0 0RF metoprolol succinate 50 mg Tablet Extended Release 24 Hr 100 mg PO QAM Qty: 0 0RF lisinopril 20 mg tablet 20 mg PO QAM Qty: 90 3RF K-Phos Original 500 mg tablet,soluble 500 mg PO QAM Qty: 0 0RF Patient Comments: just ran out of medication, prefers this medication Discontinued amoxicillin-pot clavulanate 875-125 mg tablet 1 tab PO BID Qty: 24 0RF No Action (DME) FreeStyle Yulia 3 Plus Sensor Device See Rx Instructions .Route Qty: 2 6RF Rx Instructions: Change sensor every 15 days (DME) FreeStyle Yulia 3 [place] Misc See Rx Instructions .Route Qty: 1 0RF Rx Instructions: Scan 3 times daily and as needed Discharge Orders: Discharge Order (Routine); Ordered 03/08/25 Ordered By: Marli Gomez Admission Data Admit Date/Time: 03/06/25 13:04 Attending Provider: Anton Smyth Admit Provider: Lauren Mckay Primary Care Provider: Violet Hdz Other Providers: Olivia Corrales; Darcy Guardado; Radha Ratliff; Ed Can; Ronda Stanley; Kaila Sarmiento; Jj William Other Interventions: Discharge Summary Assessment (RN) Last Done: 03/08/25 15:39 Hospital Stay Data Consultations 03/04/25 21:46 ED Decision to Admit Stat 03/07/25 07:59 Consult Infectious Diseases Routine Diagnostic Imagining Performed 03/06/25 09:17 CT leg [CT tib/fib LT wo con] Routine Pending Results Patient Have Any Pending Studies at Discharge: No Discharge Instructions Given to Patient (Per Discharging Provider) Mr. Kelley, [place] were recently hospitalized secondary to recurrent left lower extremity cellulitis. The infection then spread into your bloodstream as well. You are now returning home on IV antibiotics. Medications: Your medication list has been reviewed and reconciled upon discharge to ensure accuracy and continuity of care. An updated list of all your medications is included with your hospital discharge paperwork. Please review this list closely, and make note of any changes. Please take Cefazolin every 8 hours through 03/19/2025. Your first dose at home wi ll be this evening, 03/08. Take your medications as instructed; do not skip a dose of your medicines. Make sure all of your doctors know every medicine you are taking (including dqch-egr-ytewvmh medicines, vitamins, and supplements). Call your primary care provider before taking any new medicines (including over- the-counter medicines, vitamins, and supplements), because some of these may interact with your current medications, or may make your symptoms worse. Tell your primary care provider if you cannot afford your medications. Activity: You can do normal everyday activities as your body allows. Take rest breaks if you feel tired. Do not overexert. Stop activity if you have pain, shortness of breath or feel dizzy. Follow-up appointments: Make an appointment with your primary care physician within one week of discharge. A copy of this summary will be sent to them. Every time you see your primary care physician, or any other doctor, bring your medication list, and a list of questions. CONTACT YOUR PRIMARY CARE PROVIDER if you experience any of the following: Shortness of breath or difficulty breathing Fevers or chills Feeling tired with normal activity or experiencing dizziness or fainting Difficulty following your treatment plan, or difficulty taking medications CALL 911 OR GO TO THE EMERGENCY DEPARTMENT if you experience any of the following: Severe abdominal pain or nausea/vomiting Severe chest pain, or chest pain that radiates (moves) to your jaw or arm Sudden, severe shortness of breath or difficulty breathing Thank you for allowing us to participate in your care. Total Time Total Time Spent Total Time Spent (In Minutes): 60 Total Time Includes: Examination of the Patient, Discharge Planning, Medication Reconciliation and Communication With Other Providers Coding Level of Care Code 80571 INP/OBS DISCH >30 MIN Diagnoses Cellulitis of left leg L03.116
== END 2025-03-08 16:05 | disposition home or self-care (01) | DRG 603 ==
LOC: 3W 20:03 → ED 20:03 → SUATTDRO 22:58 → 3W 23:21 → SUATTDRO 03-06 13:04 → 3W 03-07 19:47
DX: I25.2 Old myocardial infarction; E11.9 Type 2 diabetes mellitus without complications; E66.813 Obesity, class 3; R78.81 Bacteremia; F84.0 Autistic disorder; Z79.84 Long term (current) use of oral hypoglycemic drugs; I10 Essential (primary) hypertension; Z68.43 Body mass index [BMI] 50.0-59.9, adult; Z79.4 Long term (current) use of insulin; I42.8 Other cardiomyopathies; Z79.85 Long-term (current) use of injectable non-insulin antidiabetic drugs; B95.61 Methicillin susceptible Staphylococcus aureus infection as the cause of diseases classified elsewhere; I25.10 Atherosclerotic heart disease of native coronary artery without angina pectoris; E78.5 Hyperlipidemia, unspecified; Z79.82 Long term (current) use of aspirin; L03.116 Cellulitis of left lower limb